=== PATIENT | male | born 1950 | race Caucasian/White ===

== ENCOUNTER 2019-11-09 12:07 | Outpatient (RCR) | payer MEDICARE, SELFPAY ==
[2019-09-07 14:09] LABS: INR 3.7; Prothrombin Time 38.6 Seconds (9.64-11.0)
[2019-11-02 16:41] LABS: Prothrombin Time 10.7 Seconds (9.64-11.0)
[2019-11-09 12:28] LABS: INR 1.9; Prothrombin Time 20.2 Seconds (9.64-11.0)
== END 2019-12-06 23:59 | disposition home or self-care (01) ==
LOC: CHSLAB 12:07
PROVIDERS: PCP Internal Medicine; Visit Provider Internal Medicine
DX: Z79.01 Long term (current) use of anticoagulants (principal)
CPT/HCPCS: 36415; 85610

== ENCOUNTER 2020-01-07 09:37 | Outpatient (CLI) | payer MEDICARE, SELFPAY ==
[2020-01-07 09:50] LABS: Basophils Absolute Auto 0.02 K/mm3 (0.00-0.10); Basophils Percent Auto 0.4 % (0.0-1.0); Eosinophils Absolute Auto 0.09 K/mm3 (0.02-0.50); Hematocrit 35.7 % (37.0-46.0); Immature Granulocyte Absolute 0.01 K/mm3 (0.00-0.00); Immature Granulocyte Percent A 0.2 % (0.0-0.0); Lymphocytes Absolute Auto 1.05 K/mm3 (1.10-4.50); Lymphocytes Percent Auto 23.2 % (18.0-42.0); Mean Corpuscular HGB Conc 30.8 g/dL (32.0-36.0); Mean Corpuscular Hemoglobin 26.1 pg (27.0-31.0); Mean Corpuscular Volume 84.6 fL (78.0-102.0); Mean Platelet Volume 9.7 fl (8.7-11.0); Monocytes Absolute Auto 0.49 K/mm3 (0.10-0.90); Monocytes Percent Auto 10.8 % (2.0-11.0); Neutrophils Absolute Auto 2.9 K/mm3 (1.7-7.2); Neutrophils Percent Auto 63.4 % (50.0-70.0); Platelet Count Result 202 K/mm3 (150-420); Red Blood Count 4.22 M/mm3 (4.70-6.10); Red Cell Distribution Width 14.6 % (11.6-14.4); White Blood Count 4.5 K/mm3 (4.8-10.8)
[2020-01-07 09:56] LABS: Add Urine Microscopic? NO; Appearance Urine Clear (Clear); Bilirubin Urine Negative (Negative); Blood Urine Negative (Negative); Color Urine Yellow (Yellow); Glucose Urine UA Negative (Negative); Ketones Urine Negative (Negative); Leukocyte Esterase Ur Negative (Negative); Nitrate Urine Negative (Negative); Protein Urine Negative (Negative); Urobilinogen Urine 0.2 mg/dL (0.2-1.0)
[2020-01-07 10:01] LABS: INR 2.4; Prothrombin Time 24.2 Seconds (9.64-11.0)
[2020-01-07 10:04] LABS: Hemoglobin A1C 6.7 % (<5.7)
[2020-01-07 10:54] LABS: Alanine Aminotransferase 28 U/L (16-63); Albumin Level 3.7 g/dL (3.4-5.0); Alkaline Phosphatase 60 U/L (46-116); Anion Gap 12.6 mmol/L (7-16); Aspartate Amino Transferase 19 U/L (15-37); Bilirubin,Total 0.7 mg/dL (0.00-1.00); Blood Urea Nitrogen 21 mg/dL (7-18); Calcium 8.9 mg/dL (8.5-10.1); Carbon Dioxide 28 mmol/L (21-32); Chloride 107 mmol/L (98-108); Cholesterol 168 mg/dL (0-200); Estimated Glomerular Filt Rate 60; Glucose 98 mg/dL (70-99); HDL Direct 62 mg/dL (40-60); LDL Cholesterol Calculated 91 mg/dL (<130); Osmolality Calculated 299 mOsm/kg (285-295); Potassium 4.6 mmol/L (3.5-5.1); Sodium 143 mmol/L (136-145); Total Protein 6.4 g/dL (6.4-8.2); Triglycerides 74 mg/dL (0-150)
== END 2020-01-07 09:38 | disposition home or self-care (01) ==
PROVIDERS: PCP Internal Medicine; Visit Provider Internal Medicine
DX: R73.01 Impaired fasting glucose (principal); I10 Essential (primary) hypertension; E78.2 Mixed hyperlipidemia; D68.69 Other thrombophilia; Z79.01 Long term (current) use of anticoagulants
CPT/HCPCS: 36415; 80053; 80061; 81003; 83036; 85025; 85610

== ENCOUNTER 2020-01-24 11:00 | Outpatient (CLI) | payer MEDICARE, SELFPAY ==
[2020-01-24 11:21] LABS: Immature Reticulocyte Fraction 32.7 % (2.0-16.52); Reticulocyte Hemoglobin Conten 27.6 pg (28.0-35.0); Reticulocytes Absolute 0.05 M/mm3 (0.02-0.1)
[2020-01-24 12:57] LABS: Ferritin 13 ng/mL (26-388); Iron 36 ug/dL (65-175); Percent Iron Saturation 7 % (12-57); Vitamin B12 505 pg/mL (193-986)
[2020-01-26 10:41] LABS: Vitamin D 25 Hydroxy 23 ng/mL (30-100)
[2020-01-27 03:44] LABS: Red Blood Cell Folate 869 ng/mL RBC (>280)
== END 2020-01-24 11:01 | disposition home or self-care (01) ==
LOC: CHSLAB 11:02
PROVIDERS: PCP Internal Medicine; Visit Provider Internal Medicine
DX: D64.9 Anemia, unspecified (principal); E55.9 Vitamin D deficiency, unspecified
CPT/HCPCS: 36415; 82306; 82607; 82728; 82747; 83540; 83550; 85046

== ENCOUNTER 2020-01-27 12:30 | Outpatient (CLI) | payer MEDICARE, SELFPAY ==
[2020-01-27 13:41] LABS: Occult Blood Negative (Negative)
[2020-01-27 13:42] LABS: Occult Blood Negative (Negative)
[2020-01-27 13:42] LABS: Occult Blood Negative (Negative)
== END 2020-01-27 12:31 | disposition home or self-care (01) ==
LOC: CHSLAB 12:32
PROVIDERS: PCP Internal Medicine; Visit Provider Internal Medicine
DX: D50.9 Iron deficiency anemia, unspecified (principal)
CPT/HCPCS: 82272

== ENCOUNTER 2020-02-25 11:06 | Outpatient (CLI) | payer MEDICARE, SELFPAY ==
[2020-02-25 11:18] LABS: Basophils Absolute Auto 0.02 K/mm3 (0.00-0.10); Basophils Percent Auto 0.5 % (0.0-1.0); Eosinophils Absolute Auto 0.08 K/mm3 (0.02-0.50); Eosinophils Percent Auto 1.9 % (1.0-6.0); Hematocrit 44.2 % (37.0-46.0); Hemoglobin 13.5 g/dL (12.4-15.3); Immature Granulocyte Absolute 0.01 K/mm3 (0.00-0.00); Immature Granulocyte Percent A 0.2 % (0.0-0.0); Lymphocytes Absolute Auto 1.07 K/mm3 (1.10-4.50); Lymphocytes Percent Auto 25.6 % (18.0-42.0); Mean Corpuscular HGB Conc 30.5 g/dL (32.0-36.0); Mean Corpuscular Hemoglobin 25.7 pg (27.0-31.0); Mean Corpuscular Volume 84.2 fL (78.0-102.0); Mean Platelet Volume 10.4 fl (8.7-11.0); Monocytes Percent Auto 9.6 % (2.0-11.0); Neutrophils Absolute Auto 2.6 K/mm3 (1.7-7.2); Neutrophils Percent Auto 62.2 % (50.0-70.0); Platelet Count Result 188 K/mm3 (150-420); Red Blood Count 5.25 M/mm3 (4.70-6.10); Red Cell Distribution Width 21.2 % (11.6-14.4); White Blood Count 4.2 K/mm3 (4.8-10.8)
[2020-02-25 11:29] LABS: INR 2.2; Prothrombin Time 22.1 Seconds (9.64-11.0)
[2020-02-25 12:36] LABS: Ferritin 39 ng/mL (26-388); Iron 98 ug/dL (65-175); Percent Iron Saturation 24 % (12-57)
== END 2020-02-25 11:07 | disposition home or self-care (01) ==
LOC: CHSLAB 11:08
PROVIDERS: PCP Internal Medicine; Visit Provider Internal Medicine
DX: D50.9 Iron deficiency anemia, unspecified (principal)
CPT/HCPCS: 36415; 82728; 83540; 83550; 85025; 85610

== ENCOUNTER 2020-04-28 09:55 | Outpatient (CLI) | payer MEDICARE, SELFPAY ==
[2020-04-28 10:15] LABS: INR 3.1; Prothrombin Time 30.4 Seconds (9.64-11.0)
[2020-04-30 19:21] LABS: Vitamin D 25 Hydroxy 26 ng/mL (30-100)
== END 2020-04-28 09:56 | disposition home or self-care (01) ==
PROVIDERS: PCP Internal Medicine; Visit Provider Internal Medicine
DX: E55.9 Vitamin D deficiency, unspecified (principal); Z79.01 Long term (current) use of anticoagulants
CPT/HCPCS: 36415; 82306; 85610

== ENCOUNTER 2020-05-26 09:45 | Outpatient (CLI) | payer MEDICARE, SELFPAY ==
[2020-05-26 09:59] LABS: Basophils Absolute Auto 0.01 K/mm3 (0.00-0.10); Basophils Percent Auto 0.2 % (0.0-1.0); Eosinophils Absolute Auto 0.12 K/mm3 (0.02-0.50); Eosinophils Percent Auto 2.5 % (1.0-6.0); Hematocrit 44.7 % (37.0-46.0); Hemoglobin 14.8 g/dL (12.4-15.3); Immature Granulocyte Absolute 0.02 K/mm3 (0.00-0.00); Immature Granulocyte Percent A 0.4 % (0.0-0.0); Lymphocytes Absolute Auto 1.19 K/mm3 (1.10-4.50); Lymphocytes Percent Auto 24.4 % (18.0-42.0); Mean Corpuscular HGB Conc 33.1 g/dL (32.0-36.0); Mean Corpuscular Hemoglobin 30.8 pg (27.0-31.0); Mean Corpuscular Volume 93.1 fL (78.0-102.0); Mean Platelet Volume 9.7 fl (8.7-11.0); Monocytes Absolute Auto 0.42 K/mm3 (0.10-0.90); Monocytes Percent Auto 8.6 % (2.0-11.0); Neutrophils Absolute Auto 3.1 K/mm3 (1.7-7.2); Neutrophils Percent Auto 63.9 % (50.0-70.0); Platelet Count Result 166 K/mm3 (150-420); Red Cell Distribution Width 15.9 % (11.6-14.4); White Blood Count 4.9 K/mm3 (4.8-10.8)
[2020-05-26 10:09] LABS: INR 2.9; Prothrombin Time 28.8 Seconds (9.64-11.0)
== END 2020-05-26 09:46 | disposition home or self-care (01) ==
LOC: CHSLAB 09:47
PROVIDERS: PCP Internal Medicine; Visit Provider Internal Medicine
DX: Z79.01 Long term (current) use of anticoagulants (principal); D72.819 Decreased white blood cell count, unspecified
CPT/HCPCS: 36415; 85025; 85610

== ENCOUNTER 2020-05-29 10:06 | Outpatient (CLI) | payer MEDICARE, SELFPAY ==
[2020-05-29 10:32] LABS: Hemoglobin A1C 6.2 % (<5.7)
[2020-05-29 11:09] LABS: Alanine Aminotransferase 34 U/L (16-63); Albumin Level 3.7 g/dL (3.4-5.0); Alkaline Phosphatase 68 U/L (46-116); Anion Gap 9.2 mmol/L (7-16); Aspartate Amino Transferase 23 U/L (15-37); Bilirubin,Total 0.6 mg/dL (0.00-1.00); Blood Urea Nitrogen 15 mg/dL (7-18); Calcium 8.9 mg/dL (8.5-10.1); Carbon Dioxide 32 mmol/L (21-32); Chloride 106 mmol/L (98-108); Creatine Kinase 156 U/L (39-308); Estimated Glomerular Filt Rate 59; Free T4 Free Thyroxine 0.93 ng/dL (0.76-1.46); Glucose 131 mg/dL (70-99); Osmolality Calculated 298 mOsm/kg (285-295); Potassium 4.2 mmol/L (3.5-5.1); Sodium 143 mmol/L (136-145); Thyroid Stimulating Hormone 1.51 uIU/mL (0.36-3.74); Total Protein 6.5 g/dL (6.4-8.2)
== END 2020-05-29 10:07 | disposition home or self-care (01) ==
LOC: CHSLAB 10:08
PROVIDERS: PCP Internal Medicine; Visit Provider Internal Medicine
DX: R53.83 Other fatigue (principal); R73.01 Impaired fasting glucose
CPT/HCPCS: 36415; 80053; 82550; 83036; 84439; 84443; 84481

== ENCOUNTER 2020-07-29 09:29 | Outpatient (CLI) | payer MEDICARE, SELFPAY ==
[2020-07-29 09:53] LABS: Basophils Absolute Auto 0.02 K/mm3 (0.00-0.10); Basophils Percent Auto 0.4 % (0.0-1.0); Eosinophils Absolute Auto 0.13 K/mm3 (0.02-0.50); Eosinophils Percent Auto 2.9 % (1.0-6.0); Hematocrit 49.1 % (37.0-46.0); Hemoglobin 15.8 g/dL (12.4-15.3); Immature Granulocyte Absolute 0.01 K/mm3 (0.00-0.00); Immature Granulocyte Percent A 0.2 % (0.0-0.0); Lymphocytes Absolute Auto 0.99 K/mm3 (1.10-4.50); Mean Corpuscular HGB Conc 32.2 g/dL (32.0-36.0); Mean Corpuscular Hemoglobin 31.7 pg (27.0-31.0); Mean Corpuscular Volume 98.4 fL (78.0-102.0); Mean Platelet Volume 10.7 fl (8.7-11.0); Monocytes Absolute Auto 0.35 K/mm3 (0.10-0.90); Monocytes Percent Auto 7.8 % (2.0-11.0); Neutrophils Percent Auto 66.7 % (50.0-70.0); Platelet Count Result 191 K/mm3 (150-420); Red Blood Count 4.99 M/mm3 (4.70-6.10); Red Cell Distribution Width 13.7 % (11.6-14.4); White Blood Count 4.5 K/mm3 (4.8-10.8)
[2020-07-29 09:55] LABS: INR 2.8; Prothrombin Time 28.1 Seconds (9.64-11.0)
[2020-07-29 09:56] LABS: Reticulocytes Absolute 1.55 M/mm3 (0.02-0.1)
[2020-07-29 09:57] LABS: Immature Reticulocyte Fraction 9.4 % (2.0-16.52); Reticulocyte Hemoglobin Conten 37.8 pg (28.0-35.0); Reticulocyte Percent 0.08 % (0.50-1.50)
[2020-07-29 11:01] LABS: Alanine Aminotransferase 38 U/L (16-63); Albumin Level 4.3 g/dL (3.4-5.0); Alkaline Phosphatase 76 U/L (46-116); Anion Gap 6 mmol/L (8-16); Aspartate Amino Transferase 21 U/L (15-37); Bilirubin,Total 0.9 mg/dL (0.00-1.00); Blood Urea Nitrogen 19 mg/dL (7-18); Calcium 9.2 mg/dL (8.5-10.1); Carbon Dioxide 29 mmol/L (21-32); Chloride 106 mmol/L (98-108); Estimated Glomerular Filt Rate > 60; Ferritin 72 ng/mL (26-388); Glucose 109 mg/dL (70-99); Iron 110 ug/dL (65-175); Osmolality Calculated 295 mOsm/kg (285-295); Percent Iron Saturation 29 % (12-57); Potassium 4.4 mmol/L (3.5-5.1); Sodium 141 mmol/L (136-145); Total Protein 7.1 g/dL (6.4-8.2)
[2020-08-02 12:11] LABS: Vitamin D 25 Hydroxy 27 ng/mL (30-100)
== END 2020-07-29 09:30 | disposition home or self-care (01) ==
LOC: CHSLAB 09:31
PROVIDERS: PCP Internal Medicine; Visit Provider Internal Medicine
DX: R19.4 Change in bowel habit (principal); D68.69 Other thrombophilia; E61.1 Iron deficiency; E55.9 Vitamin D deficiency, unspecified; Z12.5 Encounter for screening for malignant neoplasm of prostate; Z79.01 Long term (current) use of anticoagulants
CPT/HCPCS: 36415; 80053; 82306; 82728; 83540; 83550; 84153; 85025; 85046; 85610; G0103

== ENCOUNTER 2020-08-07 08:23 | Outpatient (CLI) | payer MEDICARE, SELFPAY ==
--- NOTE | ~2020-08-07 | CT_ITS ---
EXAMINATION: CT abdomen pelvis w con DATE: 08/07/2020 08:49 INDICATION: Change in bowel habits, melena. History of bowel resection 10 months ago for polyps. TECHNIQUE: Computed tomography (CT) of the abdomen and pelvis was performed with 100 cc Omnipaque 350 intravenous contrast. Automated exposure control and iterative reconstruction technique were employe d. Exam dose: 872.57 mGy-cm total exam DLP. COMPARISON: 12/25/2018 CT abdomen pelvis FINDINGS: The lung bases are clear of infiltrate or consolidation. Normal heart size. No pericardial or pleural effusion. There is an approximately 12 mm gallstone. No gallbladder wall thickening or pericholecystic fluid or inflammation. No bile duct or pancreatic duct dilatation. No hepatic, splenic, pancreatic or adrenal space-occupying mass lesion is detected. Approximately 2.1 cm and 3 mm right renal cysts and 3.8 cm left renal cysts are noted. There are 3 lower pole left renal calculi measuring between approximately 3 milliners and 10 mm maxim al dimension. No right renal or right or left ureteral calculus or hydronephrosis of either kidney. There is prominent prostate enlargement as well as some prostate calcifications. There is diffuse thi ckening of the urinary bladder wall, likely due to the prostate enlargement/bladder outlet obstructio n. There is atherosclerotic calcification of the abdominal aorta and iliac arteries but no aneurysm. No intraperitoneal or retroperitoneal or pelvic mass lesion or adenopathy or ascites. There are numerous diverticula of the sigmoid colon; no CT evidence of diverticulitis. There is partial resection of the right colon. No bowel obstruction, bowel wall thickening, pneumatos is or intraperitoneal free air. There are bilateral fat-containing inguinal hernias, larger on the left. Prominent degenerative disc disease throughout the lumbar spine, moderate degenerative disease at L5- S1. No suspicious osteolytic or osteoblastic lesions are noted. Left hip prosthesis with extensive associated streak artifact.. IMPRESSION: Cholelithiasis Bilateral renal cysts Lower pole left nonobstructive nephrolithiasis Prominent prostate enlargement, prostate calcifications; diffuse bladder wall thickening, likely seco ndary to the prostate enlargement Diverticulosis of the sigmoid colon Reviewed, dictated and finalized at [facility]. Reviewed, dictated and finalized at location [facility]. IMPRESSION: Cholelithiasis Bilateral renal cysts Lower pole left nonobstructive nephrolithiasis Prominent prostate enlargement, prostate calcifications; diffuse bladder wall t hickening, likely secondary to the prostate enlargement Diverticulosis of the sigmoid colon
== END 2020-08-07 08:24 | disposition home or self-care (01) ==
LOC: CHSIMG 08:24
PROVIDERS: PCP Internal Medicine; Visit Provider Internal Medicine
DX: R19.4 Change in bowel habit (principal); K92.1 Melena
CPT/HCPCS: 74177; Q9965

== ENCOUNTER 2020-09-11 11:03 | Outpatient (CLI) | payer MEDICARE, SELFPAY ==
--- NOTE | ~2020-09-11 | XR_ITS ---
EXAMINATION: XR chest 2V EXAM DATE: 09/11/2020 11:46 INDICATION: Incisional hernia. Preoperative. TECHNIQUE: Frontal and lateral projections of the chest obtained and reviewed. Comparison is made to prior examination from 01/30/2013. FINDINGS: Right chondral cartilage calcification. There is an oblong left midlung zone granuloma unc hanged. The lungs are otherwise clear. There are no pleural effusions. The cardiomediastinal silhou ette is within normal limits. There is no pneumothorax suspected. The bones and soft tissues are un remarkable. IMPRESSION: Granuloma. Reviewed, dictated and finalized at location B. ACQUISITION SPECIALIST IMPRESSION: Granuloma.
[2020-09-11 11:15] LABS: Basophils Absolute Auto 0.01 K/mm3 (0.00-0.10); Basophils Percent Auto 0.2 % (0.0-1.0); Eosinophils Absolute Auto 0.12 K/mm3 (0.02-0.50); Eosinophils Percent Auto 2.6 % (1.0-6.0); Hematocrit 43.8 % (37.0-46.0); Hemoglobin 14.2 g/dL (12.4-15.3); Immature Granulocyte Absolute 0.02 K/mm3 (0.00-0.00); Immature Granulocyte Percent A 0.4 % (0.0-0.0); Lymphocytes Absolute Auto 1.06 K/mm3 (1.10-4.50); Lymphocytes Percent Auto 22.6 % (18.0-42.0); Mean Corpuscular HGB Conc 32.4 g/dL (32.0-36.0); Mean Corpuscular Hemoglobin 32.1 pg (27.0-31.0); Mean Corpuscular Volume 98.9 fL (78.0-102.0); Mean Platelet Volume 9.9 fl (8.7-11.0); Monocytes Absolute Auto 0.44 K/mm3 (0.10-0.90); Monocytes Percent Auto 9.4 % (2.0-11.0); Neutrophils Percent Auto 64.8 % (50.0-70.0); Platelet Count Result 169 K/mm3 (150-420); Red Blood Count 4.43 M/mm3 (4.70-6.10); Red Cell Distribution Width 13.4 % (11.6-14.4); White Blood Count 4.7 K/mm3 (4.8-10.8)
[2020-09-11 11:27] LABS: INR 2.9; Prothrombin Time 29.1 Seconds (9.64-11.0)
--- NOTE | 2020-09-11 11:30 | ECG_ITS ---
Measurements Intervals [place] Rate: 84 P: 32 MI: 167 QRS: 11 QRSD: 104 T: -8 QT: 364 QTc: 431 Interpretive Statements SINUS RHYTHM ATRIAL PREMATURE COMPLEX INCOMPLETE RIGHT BUNDLE BRANCH BLOCK BORDERLINE ST-T WAVE ABNORMALITY- INFERIOR LEADS BASELINE WANDER- V1 BORDERLINE ECG Electronically Signed On 09-11-2020 12:11:02 BUYER by Jose Martin Pham D.O.
[2020-09-11 11:34] LABS: Partial Thromboplastin Time 34.7 SEC (22.3-31.6)
[2020-09-11 12:32] LABS: Anion Gap 8 mmol/L (8-16); Blood Urea Nitrogen 22 mg/dL (7-18); Calcium 8.9 mg/dL (8.5-10.1); Carbon Dioxide 29 mmol/L (21-32); Chloride 106 mmol/L (98-108); Estimated Glomerular Filt Rate > 60; Glucose 110 mg/dL (70-99); Osmolality Calculated 300 mOsm/kg (285-295); Potassium 4.4 mmol/L (3.5-5.1); Sodium 143 mmol/L (136-145)
== END 2020-09-11 11:04 | disposition home or self-care (01) ==
PROVIDERS: PCP Internal Medicine; Visit Provider Anesthesiology
DX: K43.2 Incisional hernia without obstruction or gangrene (principal); E78.00 Pure hypercholesterolemia, unspecified; Z79.01 Long term (current) use of anticoagulants; I45.10 Unspecified right bundle-branch block
CPT/HCPCS: 36415; 71046; 80048; 85025; 85610; 85730; 93005

== ENCOUNTER 2020-09-13 01:34 | Outpatient (CLI) | payer MEDICARE, SELFPAY ==
[2020-09-13 18:04] LABS: SARS-CoV-2 RNA PCR Negative
== END 2020-09-13 01:35 | disposition home or self-care (01) ==
LOC: ANHCOVIDDT 01:35
PROVIDERS: PCP Internal Medicine; Visit Provider Surgery
DX: Z01.818 Encounter for other preprocedural examination (principal); Z20.828 Contact with and (suspected) exposure to other viral communicable diseases
CPT/HCPCS: 87635; C9803; U0003

== ENCOUNTER 2020-12-05 15:51 | Outpatient (RCR) | payer MEDICARE, SELFPAY ==
[2020-12-05 16:17] LABS: INR 2.5
== END 2021-03-05 23:59 | disposition home or self-care (01) ==
LOC: CHSLAB 15:51
PROVIDERS: PCP Internal Medicine; Visit Provider Internal Medicine
DX: Z79.01 Long term (current) use of anticoagulants (principal)
CPT/HCPCS: 36415; 85610

== ENCOUNTER → 2020-12-13 00:34 | Outpatient (CLI) | payer MEDICARE, SELFPAY ==
[2020-12-13 20:38] LABS: SARS-CoV-2 RNA PCR Negative
== END ==
PROVIDERS: Family Provider Internal Medicine; PCP Internal Medicine; Visit Provider Surgery
DX: Z01.812 Encounter for preprocedural laboratory examination (principal); Z20.822 Contact with and (suspected) exposure to COVID-19
CPT/HCPCS: C9803; U0003; U0005

== ENCOUNTER 2020-12-18 15:34 | Observation (INO) | payer MEDICARE, SELFPAY ==
[2020-09-11 09:49] VITALS: BMI 28.8
--- NOTE | 2020-09-16 13:21 | P.PNAN_ITS ---
Anes - Initial Pre Proc Eval Procedure: Operation Date: 09/17/20 08:30 Proposed Procedures p Laparoscopic Repair Of Incisional Hernia - Mark Angeles MD Date/Time: 09/16/20 13:21 Surgeon: Mark Angeles MD Pre Op Diagnosis: Incisional Hernia Patient Data Age: 69 Gender: M Height: 1.78 m Weight: 91 kg Allergies Allergy/AdvReac Type Severity Reaction Status Date / Time No Known Allergies Allergy Unknown Verified 09/11/20 09:44 Home Medications Medication Instructions Recorded Confirmed Type cholecalciferol (vitamin D3) 75 75 mcg PO QAM 08/11/20 09/11/20 History mcg (3,000 unit) tablet folic acid 1 mg tablet 1,000 mg PO DAILY 08/11/20 09/11/20 History lovastatin 40 mg tablet 40 mg PO QAM 08/11/20 09/11/20 History tamsulosin 0.4 mg capsule 0.4 mg PO QAM 08/11/20 09/11/20 History warfarin 1 mg tablet 1 mg PO DAILY 08/11/20 09/11/20 History warfarin 4 mg tablet 4 mg PO QAM 08/11/20 09/11/20 History glucosamine-chondroitin 1 tablet PO QAM 09/11/20 09/11/20 History PMFSH Past Medical History Medical History (Updated 09/16/20 @ 13:22 by Aj Veliz MD) Arthritis BPH (benign prostatic hyperplasia) Factor V Leiden History of blood clots History of high blood pressure History of high cholesterol AYAKA on CPAP Pulmonary embolism Surgical History Surgical History (Updated 08/18/20 @ 10:33 by Pema Urbina [facility]) H/O umbilical hernia repair approx 2014 Dr. Angeles History of cystoscopy 2014, OA Dr. Langley History of left hip replacement 2014 History of prostate biopsy 2009, OA Dr. White Status post partial colectomy 10/2019: partial right colectomy for dyplastic polyp, [place] Family History Family History Father , age 80 Family history of cardiovascular disease Acute myocardial infarction Sibling , age 63 Family history of cardiovascular disease Acute myocardial infarction Mother , age 78 Family history of lung cancer Diabetes mellitus Social History Social History Smoking status: Never smoker Additional smoking assessment comments: PT STATES NEVER SMOKING CIGARETTS, CIGARS, PIPE, E-CIGARETTES OR VAPING Alcohol intake: current Drinks per week: 21 Substance use: current Substance use type: marijuana Other substance usage details: DAILY Last use: 09/10/20 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 Questions were solicited and answers provided to the satisfaction of the patient/family/POA.
[2020-12-09 15:29] VITALS: BMI 28.8
--- NOTE | 2020-12-16 10:50 | PM.SD2 ---
Same Day Admit/Disch: HPI History of Present Illness Chief complaint: Incisional Hernia Narrative: Mark Chatman is a 70 year old male Who noticed a bulge in the left side of his abdomen following a laparoscopic partial right colectomy done at [facility] in October of 2019. He was seen in the office and found to have a left flank hernia. CT scan of the abdomen and pelvis in August of 2020 has been reviewed. It shows disruption of the internal oblique and transversus muscles but an intact external oblique. His exam shows a fairly wide mouth left flank incisional hernia associated with a 6 cm scar in the area. The patient has Factor 5 Leiden mutation, heterozygous and history of DVT. He is on chronic warfarin therapy which has been stopped for surgery. He is taken to surgery now for laparoscopic repair of this incisional hernia with mesh. He has had a previous umbilical hernia repair by Dr. mclean with mesh in November of 2016. [facility] Past Medical History Medical History (Updated 12/19/20 @ 10:13 by Mark Mclean MD) Arthritis BPH (benign prostatic hyperplasia) Factor V Leiden History of blood clots History of high blood pressure History of high cholesterol AYAKA on CPAP Pulmonary embolism Surgical History Surgical History (Updated 08/18/20 @ 10:33 by Pema Urbina CMA) H/O umbilical hernia repair approx 2014 Dr. Mclean History of cystoscopy 2014, OA Dr. Langley History of left hip replacement 2014 History of prostate biopsy 2009, OA Dr. White Status post partial colectomy 10/2019: partial right colectomy for dyplastic polyp, [place] Family History Family History Father , age 80 Family history of cardiovascular disease Acute myocardial infarction Sibling , age 63 Family history of cardiovascular disease Acute myocardial infarction Mother , age 78 Family history of lung cancer Diabetes mellitus Social History Social History Smoking status: Never smoker Alcohol intake: current Drinks per week: 21 Substance use: current Substance use type: marijuana Other substance usage details: DAILY Last use: 12/16/20 Living arrangements: with family 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 Spiritual care concerns: No Same Day Admit/Disch: Med Pre-admit Medications Home Medications Medication Instructions Recorded Confirmed Type cholecalciferol (vitamin D3) 75 75 mcg PO QAM 08/11/20 12/17/20 History mcg (3,000 unit) tablet folic acid 1 mg tablet 1 mg PO DAILY 08/11/20 12/18/20 History lovastatin 40 mg tablet 40 mg PO QAM 08/11/20 12/17/20 History tamsulosin 0.4 mg capsule 0.4 mg PO QAM 08/11/20 12/17/20 History warfarin 4 mg tablet 4 mg PO QAM 08/11/20 12/17/20 History glucosamine-chondroitin 1 tablet PO QAM 09/11/20 12/17/20 History hydrocodone-acetaminophen 1 - 2 tablet PO Q6H PRN #15 tablet 12/19/20 Rx Exam Const: General: comfortable, no acute distress, alert and awake HENMT: Head: normocephalic and atraumatic Mouth: Yes Normal oral and palatal mucosa present Eyes: Conjunctivae: conjunctivae normal Pupils: Equal, round and reactive pupils present EOM: EOMs intact bilaterally Neck: Neck: normal visual inspection, no lymphadenopathy and nontender Resp: Effort & Inspection: normal respiratory effort Auscultation: clear to auscultation bilaterally Cardio: Rate: regular rate Rhythm: regular rhythm Heart sounds: no gallops, no murmurs and no rubs GI: Inspection: non-distended, scar ( 6 cm left flank scar) and visible herniation ( only when standing) GI Palp: Yes Soft to palpation, No Tenderness to palpation present (GI), No Hepatomegaly present, No Splenomegaly present and Yes Hernia present ( reducible hernia, only palpable with standing) Auscultation: normoactive bowel sounds Skin:
--- NOTE | 2020-12-16 12:24 | WPDANESEPPF ---
Anes - Initial Pre Proc Eval Procedure: Operation Date: 12/17/20 13:00 Proposed Procedures p Laparoscopic Repair Of Incisional Hernia - Mark Angeles MD Date/Time: 12/16/20 12:24 Surgeon: Mark Angeles MD Pre Op Diagnosis: Incisional Hernia Patient Data Age: 70 Gender: M Height: 1.78 m Weight: 91 kg Allergies Allergy/AdvReac Type Severity Reaction Status Date / Time No Known Allergies Allergy Unknown Verified 12/17/20 11:06 Home Medications Medication Instructions Recorded Confirmed Type cholecalciferol (vitamin D3) 75 75 mcg PO QAM 08/11/20 12/17/20 History mcg (3,000 unit) tablet folic acid 1 mg tablet 1,000 mg PO DAILY 08/11/20 12/17/20 History lovastatin 40 mg tablet 40 mg PO QAM 08/11/20 12/17/20 History tamsulosin 0.4 mg capsule 0.4 mg PO QAM 08/11/20 12/17/20 History warfarin 4 mg tablet 4 mg PO QAM 08/11/20 12/17/20 History glucosamine-chondroitin 1 tablet PO QAM 09/11/20 12/17/20 History Patient hx anesthesia problems: none Family hx anesthesia problems: none PMFSH Past Medical History Medical History (Updated 09/16/20 @ 13:22 by Aj Veliz MD) Arthritis BPH (benign prostatic hyperplasia) Factor V Leiden History of blood clots History of high blood pressure History of high cholesterol AYAKA on CPAP Pulmonary embolism Surgical History Surgical History (Updated 08/18/20 @ 10:33 by Pema Urbina CMA) H/O umbilical hernia repair approx 2014 Dr. Angeles History of cystoscopy 2014, OA Dr. Langley History of left hip replacement 2014 History of prostate biopsy 2009, OA Dr. White Status post partial colectomy 10/2019: partial right colectomy for dyplastic polyp, [place] Family History Family History Father , age 80 Family history of cardiovascular disease Acute myocardial infarction Sibling , age 63 Family history of cardiovascular disease Acute myocardial infarction Mother , age 78 Family history of lung cancer Diabetes mellitus Social History Social History Smoking status: Never smoker Alcohol intake: current Drinks per week: 21 Substance use: current Substance use type: marijuana Other substance usage details: DAILY Last use: [id number] Living arrangements: with family 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 Questions were solicited and answers provided to the satisfaction of the patient/family/POA.
[2020-12-17] VITALS (12 sets, daily range): BP systolic 125–169; BP diastolic 80–92; PULSE 79–106; RESP 12–20; TEMP 36.2–37; O2SAT 93–100
--- NOTE | 2020-12-17 07:02 | WPDHPUPDATE1 ---
History and Physical Update Update Date/Time: 12/17/20 07:02 History and Physical has been reviewed, including an updated exam of the patient. There are NO changes in the patient's condition. Risks, benefits, and alternatives have been discussed and questions answered. Patient agrees to proceed with procedure.
[2020-12-17] MEDS: LACTATED RINGERS 1,000 ML 30 ML IV CONT ×2 (11:40→15:02)
[2020-12-17] MEDS: ACETAMINOPHEN 500 MG TABLET 1000 MG PO (11:50)
[2020-12-17] MEDS: KETOROLAC 15 MG/ML VIAL (*BKC) IV PUSH (11:52)
[2020-12-17 12:02] LABS: INR 1.3; Prothrombin Time 16.7 Seconds (11.1-14.7)
[2020-12-17 12:03] LABS: Partial Thromboplastin Time 25.9 SECONDS (22.3-36.8)
[2020-12-17] MEDS: ceFAZolin 2 GM/D5W 50 ML 2 GM/50 ML BAG IVPB (13:20)
[2020-12-17] MEDS: BUPIVACAINE/EPINEPHRINE 0.5% 30 ML VIAL 20 ML INFILTRATE (13:43)
--- NOTE | 2020-12-17 15:13 | P.OP_ITS ---
Procedure Note - Detailed Date of procedure: 12/17/20 Pre-op diagnosis: Incisional Hernia Incisional hernia left flank Post-op diagnosis: same Procedure performed: Laparoscopic repair incisional hernia with 15 x 20 cm Symbotex mesh Description of procedure: Patient was checked in the preoperative holding area. He was then taken back to the operating room and induced into general anesthesia. The entire abdomen was prepped and draped. The initial trocar was placed in the left subcostal position fairly near the midline. This was a 5 mm applied Medical optical trocar. It went in easily. Then, under direct visu alization, we placed two 5 mm ports on the right side of the abdomen and a 10 11 port in the right lower quadrant. The abdomen was insufflated. The hernia was easily seen. There were omental adhesions stuck in the hernia sac. These were taken down sharply. No cautery was used. The hernia defect was then measured by placing a flexible ruler in the abdominal cavity. It measured 4.5 cm in transverse dimension and 2.5 cm in cephalad caudad direction. The ruler was removed. A 15 x 20 cm Symbotex mesh was chosen. I used a needle and marked location of the hernia on the anterior abdominal wall. I then placed the mesh so that it was symmetrically located over the hernia defect. I marked the outlines of the mesh on the skin. I then placed 2 0 Tyler-Ray suture around the periphery of the mesh on 3 sides. The mesh was rolled and introduced into the abdominal cavity through the 10 11 port. it was then unrolled and positioned such that the medial and lateral Tyler-Ray sutures were in the appropriate position. The remaining Tyler-Rya suture on the long side of the abdomen was away from the rib cage. I then used the [employer] suture pass device and brought the Tyler-Ray suture out of the abdominal cavity at the outer edges of the area where the mesh had been marked. When all the sutures had been retrieved, I pulled the mesh up to the abdominal wall. It looked to be very satisfactory in location. The sutures were then tied down. The secure strap device was then used to place absorbable tacks. All edges of the hernia defect were tacked securely to the abdominal wall using the double crown technique. The mesh lay very nicely and covered the hernia defect with over 5 cm of overlap in all dimensions. I then placed another Tyler-Ray transfascial suture on the upper side of the mesh but below the costal margin. This was tied down as well. I rechecked the position of the mesh repair. All looked quite good. The transfascial sutures were then cut. We stopped insufflation and removed the trocar sleeves. Transfascial suture sites as well as all trocar sites were closed with subcuticular interrupted 4 0 Monocryl skin suture. All wounds were dressed with Exofin surgical adhesive. The patient was awakened and taken to recovery in good condition. Sponge and needle counts were correct x2. Implants: 15 x 20 cm Symbotex mesh Anesthesia: GETA and local (0.5% Marcaine with epinephrine) Surgeon: Mark Angeles MD Charting Clerk: Cheryl JOHNSON Estimated blood loss (mL): 5 Drains: No Packing: No Pathology: none sent Complications: None Condition: stable Disposition: PACU Findings: 4.5 x 2.5 cm hernia defect in the left mid abdomen/left flank.
[2020-12-17] MEDS: fentaNYL CITRATE INJ (*CRX) 100 MCG/2 ML VIAL 25 MCG IV PUSH ×6 (15:25→15:47)
--- NOTE | 2020-12-17 16:10 | ADMGEN ---
This patient, Mark Chatman, was admitted to Medical Room 251-01. Patient/family oriented to hospital policies and general routines including ID bracelet, bed and alarms, visiting hours, pain management, procedures, bathroom and other care routines, personal items, smoking policy, room service/diet, and visiting hours. Information on how to activate the Rapid Response Team has been discussed. Patient/Family are encouraged to report perceived risks to care and to ask questions if they do not understand what they are told or what they should do.
[2020-12-17] MEDS: LACTATED RINGERS 1,000 ML 100 ML IV CONT (17:02)
[2020-12-17] MEDS: HYDROcodone/acetaminophen (*CRX) 5-325 MG TABLET 1 TAB PO (18:57)
[2020-12-17] MEDS: ENOXAPARIN 30 MG/0.3 ML SYRINGE SUB-Q (20:40)
[2020-12-17] MEDS: SENNA/DOCUSATE SODIUM TABLET 2 TAB PO (20:40)
[2020-12-18] VITALS (7 sets, daily range): BP systolic 137–158; BP diastolic 75–97; PULSE 76–98; RESP 17–22; TEMP 36.5–36.9; O2SAT 94–97
[2020-12-18 05:55] LABS: Hematocrit 40.6 % (42.0-52.0); Hemoglobin 13.4 g/dL (14.0-18.0); Mean Platelet Volume 10.7 fl (7.4-10.4); Platelet Count Result 181 k/mm3 (150-375); Red Blood Count 4.32 M/mm3 (4.6-6.20); Red Cell Distribution Width 13.1 % (11.5-14.5); White Blood Count 7.2 K/mm3 (4.5-10.0)
[2020-12-18 06:10] LABS: Anion Gap 2 mmol/L (8-16); Blood Urea Nitrogen 17 mg/dL (9-20); Calcium 8.3 mg/dL (8.4-10.2); Carbon Dioxide 29 mmol/L (22-30); Chloride 106 mmol/L (98-107); Estimated CRCL calculation 62 ml/min; Estimated Glomerular Filt Rate > 60; Glucose 100 mg/dL (75-110); Potassium 4.6 mmol/L (3.4-5.0); Sodium 137 mmol/L (137-145)
[2020-12-18] MEDS: polyethylene glycoL 3350 17 GM POWD.PACK PO (08:54)
[2020-12-18] MEDS: LOVASTATIN 20 MG TABLET 40 MG PO (08:56)
[2020-12-18] MEDS: CHOLECALCIFEROL 1,000 UNITS TABLET 3000 UNITS PO (08:56)
[2020-12-18] MEDS: TAMSULOSIN HCL 0.4 MG CAPSULE PO (08:56)
[2020-12-18] MEDS: HYDROcodone/acetaminophen (*CRX) 5-325 MG TABLET 1 TAB PO (08:57)
[2020-12-18] MEDS: ENOXAPARIN 30 MG/0.3 ML SYRINGE SUB-Q ×2 (08:59→20:16)
--- NOTE | 2020-12-18 09:23 | WPDANESPN ---
Anes - Prog Note Post-Op Date/Time: 12/18/20 09:23 Cardiovascular status: normal Respiratory status: normal Airway patency: baseline Mental status: baseline Post-Op hydration status: normal Vital Signs: Last Vital Signs Temp 36.9 C 12/18/20 04:00 Pulse 76 12/18/20 04:00 Resp 20 12/18/20 04:00 BP 137/86 12/18/20 04:00 Pulse Ox 94 12/18/20 04:00 Pain Score (VAS): 3 I/O: Intake & Output 12/17/20 12/18/20 12/18/20 23:59 07:59 15:59 Intake Total 270 300 510 Output Total 200 700 Balance 70 -400 510 Laboratory Tests 12/18/20 05:08 12/18/20 05:08 12/17/20 12/18/20 12/18/20 11:32 05:08 05:08 WBC 7.2 RBC 4.32 L Hgb 13.4 L Hct 40.6 L MCV 94.0 MCH 31.0 MCHC 33.0 RDW 13.1 Plt Count 181 MPV 10.7 H PT 16.7 H INR 1.3 APTT 25.9 Sodium 137 Potassium 4.6 Chloride 106 Carbon Dioxide 29 Anion Gap 2 L BUN 17 Creatinine 1.00 Estim Creat Clear Calc 62 Estimated GFR > 60 Glucose 100 Calcium 8.3 L Post-procedural complaints: none Patient Feedback: Patient satisfied with anesthetic care.
--- NOTE | 2020-12-18 12:50 | PM.PNGS ---
Progress Note: A&P Assessment and Plan (1) Incisional hernia with obstruction, without gangrene: Code(s): K43.0 - Incisional hernia with obstruction, without gangrene Status: Acute Assessment and Plan: POD#1 and doing well. Pain well-controlled. Tolerating a low fiber diet. Work on increasing activity and ambulating in the halls. Up to chair for meals. Possibly home tomorrow if pain continues to be well-controlled and he remains stable. (2) Chronic anticoagulation: Code(s): Z79.01 - half-way (current) use of anticoagulants Status: Acute Assessment and Plan: Warfarin restarted. Coags will be checked tomorrow. (3) Factor V Leiden: Code(s): D68.51 - Activated protein C resistance Status: Acute (4) History of venous thromboembolism: Code(s): Z86.718 - Personal history of other venous thrombosis and embolism Status: Acute Additional Plan Discussed plan of care with Dr. Angeles. Subjective Subjective Date/Time Seen: 12/18/20 11:50 Post Op day: 1 (lap. repair of incisional hernia with mesh) Patient reports: tolerating a regular diet, voiding w/o difficulty, flatus and no bowel movement Interval history: Patient doing well today. Reports feeling sore at incision and left abdomen, but tolerable and controlled with pain medication. Tolerating a low fiber diet. No other complaints at this time. Review of Systems Review of Systems: All systems reviewed & are unremarkable except as noted in HPI and below Exam Const: General: comfortable, no acute distress, alert and awake Orientation/consciousness: patient oriented x3 Resp: Effort & Inspection: normal respiratory effort Auscultation: clear to auscultation bilaterally Cardio: Rate: regular rate Rhythm: regular rhythm GI: Inspection: non-distended and incision (Abdominal incisions clean and dry, glue intact.) GI Palp: Yes Soft to palpation and Yes Tenderness to palpation present (GI) (incisional and left side of abdomen) Auscultation: normal bowel sounds Rectal Exam: deferred Skin: General skin exam: normal color Rashes: no rashes Neuro: General: moves all extremities and no focal motor deficits Cranial nerves: Yes CN's II-XII intact bilaterally Speech: normal speech Extrem: General: normal to inspection, no clubbing, cyanosis or edema and no calf tenderness Psych: Mental Status: mental status grossly normal Attitude: cooperative Thought process: Normal thought process present Thought content: Yes Normal thought content present Insight: Good insight present (Psych) Judgement: Good judgement present (Psych) Objective Data Vital Signs Vital Signs: Vital Signs - 24 hr 12/17/20 15:02 12/17/20 15:15 12/17/20 15:30 Temperature 97.3 F L Pulse Rate 90 79 81 Respiratory Rate 14 12 12 Blood Pressure 146/80 H 163/87 H 154/88 H Pulse Oximetry 100 100 96 12/17/20 15:45 12/17/20 15:53 12/17/20 16:10 Temperature 97.3 F L Pulse Rate 83 94 88 Respiratory Rate 12 15 16 Blood Pressure 152/87 H 159/88 H 169/91 H Pulse Oximetry 100 97 98 12/17/20 16:25 12/17/20 16:55 12/17/20 17:55 Temperature 97.3 F L 97.2 F L 97.4 F L Pulse Rate 92 86 82 Respiratory Rate 16 16 16 Blood Pressure 153/89 H 161/92 H 164/89 H Pulse Oximetry 96 93 96 12/17/20 20:00 12/17/20 23:04 12/18/20 04:00 Temperature 98.6 F 98.5 F Pulse Rate 106 H 76 Respiratory Rate 20 20 20 Blood Pressure 125/89 137/86 Pulse Oximetry 93 94 12/18/20 09:56 12/18/20 10:06 Temperature 97.9 F Pulse Rate 87 Respiratory Rate 18 Blood Pressure 155/85 H Pulse Oximetry 95 95 Intake/Output Intake/Output: Intake & Output 12/15/20 12/16/20 12/17/20 12/18/20 23:59 23:59 23:59 23:59 Intake Total 670 810 Output Total 200 700 Balance 470 110 Meds/Results Medications: Active Medications Generic Name Dose Route Start Last Admin Trade Name Freq PRN Reason Stop Dose Admin Acetaminophen 500 mg 12/17/20 15:54
--- NOTE | 2020-12-18 13:38 | PC.NURSE ---
On 12/18/20, the student, [Margaux Agustin ], provided care and completed [facility] this [facility]. I have reviewed the student's documentation and agree with the findings.
[2020-12-18] MEDS: ACETAMINOPHEN 500 MG TABLET PO (18:45)
[2020-12-18] MEDS: FOLIC ACID 1 MG TABLET PO (18:45)
[2020-12-18] MEDS: SENNA/DOCUSATE SODIUM TABLET 2 TAB PO (20:15)
[2020-12-19 04:00] VITALS: BP 153/93; PULSE 86; RESP 20; TEMP 37; O2SAT 95
[2020-12-19] MEDS: ACETAMINOPHEN 500 MG TABLET PO ×2 (04:12→09:49)
[2020-12-19 05:56] LABS: INR 1.1; Prothrombin Time 14.3 Seconds (11.1-14.7)
[2020-12-19 08:04] VITALS: BP 161/90; PULSE 93; RESP 18; TEMP 36.1; O2SAT 99
[2020-12-19] MEDS: polyethylene glycoL 3350 17 GM POWD.PACK PO (08:17)
[2020-12-19] MEDS: LOVASTATIN 20 MG TABLET 40 MG PO (08:17)
[2020-12-19] MEDS: CHOLECALCIFEROL 1,000 UNITS TABLET 3000 UNITS PO (08:19)
[2020-12-19] MEDS: TAMSULOSIN HCL 0.4 MG CAPSULE PO (08:19)
[2020-12-19] MEDS: FOLIC ACID 1 MG TABLET PO (08:19)
[2020-12-19] MEDS: ENOXAPARIN 30 MG/0.3 ML SYRINGE SUB-Q (08:19)
--- NOTE | 2020-12-19 10:21 | PM.DS ---
DS: Admitting Diagnosis Admitting Diagnosis Admitting Diagnosis: Left flank incisional hernia factor 5 Leiden deficiency, heterozygous chronic anticoagulation BPH with obstruction obstructive sleep apnea on home CPAP DS: Discharge Diagnosis Discharge Diagnosis (1) Incisional hernia with obstruction, without gangrene: Code(s): K43.0 - Incisional hernia with obstruction, without gangrene Status: Acute Assessment and Plan: Doing well after laparoscopic repair with mesh. Patient able to be discharged on postop day 2. Instructions given. He will follow up in 2 weeks. (2) Factor V Leiden: Code(s): D68.51 - Activated protein C resistance Status: Chronic Assessment and Plan: Warfarin has been restarted yesterday. He will continue his normal home dose after discharge. He was also given prophylactic dose of Lovenox during his hospital stay. 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 Coumadin restarted (4) AYAKA on CPAP: Code(s): G47.33 - Obstructive sleep apnea (adult) (pediatric); Z99.89 - Dependence on other enabling machines and devices Status: Chronic Assessment and Plan: continue CPAP as before (5) BPH (benign prostatic hyperplasia): Code(s): N40.0 - Benign prostatic hyperplasia without lower urinary tract symptoms Status: Chronic Assessment and Plan: continue on Flomax. DS: Summary Hospital Course Hospital Course: see discharge summary. Patient went home after laparoscopic repair of incisional hernia on postop day 2. Time Spent with Patient Time attestation: Total time spent providing and/or coordinating discharge services: patient underwent laparoscopic repair of a left flank incisional hernia on 12/16/2020. This was repaired with 15 x 20 cm Symbotex mesh. The patient did well after surgery. His Jantoven was held prior to surgery. It was restarted the day after surgery. He was kept on a prophylactic dose of Lovenox perioperatively. He was kept overnight postop day 1. Due to pain control and trouble ambulating due to incisional pain. He was doing much better and able to be discharged on postop day 2. In good condition. He will follow up with Dr. mclean in approximately 2 weeks. His Jantoven will be continued on his usual home dose. Exam GI: Inspection: non-distended, incision ( all incisions healing well) and no visible herniation ( No hernia but small seroma developing which is not unexpected) GI Palp: Yes Soft to palpation, Yes Tenderness to palpation present (GI) ( mild tenderness in the area of repair) and No Hernia present Auscultation: normal bowel sounds DS: Data Data Completed and Pending Labs on day of discharge: Labs from last 24 hours 12/19/20 05:24 PT 14.3 INR 1.1 Discharge Plan Discharge Attending physician on discharge: Mark Mclean Discharging Clinician: Mark Mclean Anticipated Discharge Date/Time: 12/19/20 10:15 Patient Disposition: Home, Self-Care Activity: may shower and as tolerated Diet: regular Wound Care Instructions: incision open to air Discharge Instructions: 1. May shower and wash the incisions with soap and water daily. 2. Call office for: -Wound increasingly painful or bleeding -Vomiting -Fever of greater than 101 degrees 3. Expect some blood on dressing and old blood on skin. 4. If no bowel movement for three days, take 1 oz. (30 ml) Milk of Magnesia, if no results, take Fleets enema. 5. No heavy lifting > 15-20 pounds for 2 weeks. 6. No driving for 3 days or while taking narcotic pain medications. 7. Up walking 10-30 minutes three times per day. 8. Resume previous home medications. 9. Follow-up 10-14 days in office for wound check or as previously sc
[2020-12-19 10:50] VITALS: BP 150/88; PULSE 93; RESP 18; TEMP 37; O2SAT 95
--- NOTE | 2020-12-19 13:56 | PC.NURSE ---
On 12/19/20, the student, [ Estelita Bustamante], provided care and completed [facility] documentation on this patient. I have reviewed the student's documentation and agree with the findings.
== END 2020-12-19 12:40 | disposition home or self-care (01) ==
LOC: ANHSURGERY 17:41 → ANH2MED 17:41
PROVIDERS: Anesthesiology; Admitting Provider Surgery; PCP Internal Medicine; Visit Provider Surgery
PROC: (CPT 49654; principal; 2020-12-17 13:00)
DX: K43.0 Incisional hernia with obstruction, without gangrene (principal); D68.51 Activated protein C resistance; Z79.01 Long term (current) use of anticoagulants; G47.33 Obstructive sleep apnea (adult) (pediatric); Z99.89 Dependence on other enabling machines and devices; N40.0 Benign prostatic hyperplasia without lower urinary tract symptoms; Z86.718 Personal history of other venous thrombosis and embolism; Z79.899 Other long term (current) drug therapy; I10 Essential (primary) hypertension; E78.00 Pure hypercholesterolemia, unspecified; F12.90 Cannabis use, unspecified, uncomplicated; E66.3 Overweight; Z68.29 Body mass index [BMI] 29.0-29.9, adult; Z96.642 Presence of left artificial hip joint; Z98.890 Other specified postprocedural states; Z86.711 Personal history of pulmonary embolism
CPT/HCPCS: 49654; 36415; 80048; 85027; 85610; 85730; A9270; C1781; C9803; G0378; J0690; J1100; J1170; J1650; J1885; J2405; J2704; J3010; J7120; U0003; U0005

== ENCOUNTER 2021-02-24 08:46 | Outpatient (CLI) | payer MEDICARE, SELFPAY ==
[2021-02-24 09:02] LABS: Basophils Absolute Auto 0.02 K/mm3 (0.00-0.10); Basophils Percent Auto 0.4 % (0.0-1.0); Eosinophils Absolute Auto 0.21 K/mm3 (0.02-0.50); Eosinophils Percent Auto 4.5 % (1.0-6.0); Hematocrit 45.6 % (37.0-46.0); Hemoglobin 15.1 g/dL (12.4-15.3); Immature Granulocyte Absolute 0.01 K/mm3 (0.00-0.00); Immature Granulocyte Percent A 0.2 % (0.0-0.0); Lymphocytes Absolute Auto 1.13 K/mm3 (1.10-4.50); Lymphocytes Percent Auto 24.2 % (18.0-42.0); Mean Corpuscular HGB Conc 33.1 g/dL (32.0-36.0); Mean Corpuscular Hemoglobin 31.6 pg (27.0-31.0); Mean Corpuscular Volume 95.4 fL (78.0-102.0); Mean Platelet Volume 10.4 fl (8.7-11.0); Monocytes Absolute Auto 0.46 K/mm3 (0.10-0.90); Monocytes Percent Auto 9.9 % (2.0-11.0); Neutrophils Absolute Auto 2.8 K/mm3 (1.7-7.2); Neutrophils Percent Auto 60.8 % (50.0-70.0); Platelet Count Result 169 K/mm3 (150-420); Red Blood Count 4.78 M/mm3 (4.70-6.10); Red Cell Distribution Width 13.2 % (11.6-14.4); White Blood Count 4.7 K/mm3 (4.8-10.8)
[2021-02-24 09:08] LABS: Add Urine Microscopic? NO; Appearance Urine Clear (Clear); Bilirubin Urine Negative (Negative); Blood Urine Negative (Negative); Color Urine Yellow (Yellow); Glucose Urine UA Negative (Negative); Ketones Urine Negative (Negative); Leukocyte Esterase Ur Negative LEU/UL (Negative); Nitrate Urine Negative (Negative); Protein Urine Negative (Negative); Specific Grav Ur 1.015 (1.010-1.020); Urobilinogen Urine 0.2 mg/dL (0.2-1.0); pH Urine 6.5 (5.0-8.0)
[2021-02-24 09:14] LABS: INR 2.2
[2021-02-24 09:23] LABS: Creatinine Urine 86.21 mg/dL (40-278); Microalbumin Urine Random < 13.0 mg/L
[2021-02-24 09:54] LABS: Alanine Aminotransferase 32 U/L (16-63); Albumin Level 3.6 g/dL (3.4-5.0); Alkaline Phosphatase 73 U/L (46-116); Anion Gap 9 mmol/L (8-16); Aspartate Amino Transferase 24 U/L (15-37); Bilirubin,Total 0.8 mg/dL (0.00-1.00); Blood Urea Nitrogen 20 mg/dL (7-18); Calcium 8.7 mg/dL (8.5-10.1); Carbon Dioxide 29 mmol/L (21-32); Chloride 104 mmol/L (98-108); Cholesterol 175 mg/dL (0-200); Creatine Kinase 162 U/L (39-308); Estimated Glomerular Filt Rate > 60; Glucose 108 mg/dL (70-99); HDL Direct 49 mg/dL (40-60); LDL Cholesterol Calculated 103 mg/dL (<130); Osmolality Calculated 297 mOsm/kg (285-295); Potassium 4.4 mmol/L (3.5-5.1); Sodium 142 mmol/L (136-145); Total Protein 6.4 g/dL (6.4-8.2); Triglycerides 114 mg/dL (0-150)
[2021-02-26 17:29] LABS: Vitamin D 25 Hydroxy 25 ng/mL (30-100)
== END 2021-02-24 08:47 | disposition home or self-care (01) ==
LOC: CHSLAB 08:49
PROVIDERS: PCP Internal Medicine; Visit Provider Internal Medicine
DX: E78.2 Mixed hyperlipidemia (principal); I10 Essential (primary) hypertension; R73.01 Impaired fasting glucose; D68.69 Other thrombophilia; R31.29 Other microscopic hematuria; E55.9 Vitamin D deficiency, unspecified; Z79.01 Long term (current) use of anticoagulants
CPT/HCPCS: 36415; 80053; 80061; 81003; 82043; 82306; 82550; 83036; 85025; 85610

== ENCOUNTER → 2021-03-02 04:12 | Outpatient (CLI) | payer MEDICARE, SELFPAY ==
[2021-03-02 19:57] LABS: SARS-CoV-2 RNA PCR Negative
== END ==
PROVIDERS: PCP Internal Medicine; Visit Provider Internal Medicine Gastroenterology
DX: Z01.812 Encounter for preprocedural laboratory examination (principal); Z20.822 Contact with and (suspected) exposure to COVID-19
CPT/HCPCS: C9803; U0003; U0005

== ENCOUNTER 2021-03-05 01:59 | Day surgery (SDC) | payer MEDICARE, SELFPAY ==
[2021-02-20 14:07] VITALS: BMI 28.8
--- NOTE | 2021-03-02 14:55 | SUR.PREOP ---
Pt reportedly was instructed to stop taking Coumadin 5 days prior to procedure my MD Sheth. Consult for regarding verification of this was faced on the and then on the . RN spoke to office on Tuesday and was told that they would have to wait until MD was in the office Tuesday. Office contacted Tuesday and told RN that MD would not sign paperwork until pt had been seen in office. Pt to be seen in office on Tuesday the .
--- NOTE | 2021-03-04 11:26 | WPDANESEPPF ---
Anes - Initial Pre Proc Eval Procedure: Operation Date: 03/05/21 09:15 Proposed Procedures p Screening Colonoscopy - Ge Seymour MD Date/Time: 03/04/21 11:26 Surgeon: Ge Seymour MD Pre Op Diagnosis: hx of colon ca Patient Data Age: 70 Gender: M Height: 1.78 m Weight: 91 kg Allergies Allergy/AdvReac Type Severity Reaction Status Date / Time No Known Allergies Allergy Unknown Verified 03/05/21 07:43 Home Medications Medication Instructions Recorded Confirmed Type cholecalciferol (vitamin D3) 75 75 mcg PO QAM 08/11/20 02/20/21 History mcg (3,000 unit) tablet folic acid 1 mg tablet 1 mg PO DAILY 08/11/20 02/20/21 History lovastatin 40 mg tablet 40 mg PO QAM 08/11/20 02/20/21 History tamsulosin 0.4 mg capsule 0.4 mg PO QAM 08/11/20 02/20/21 History warfarin 4 mg tablet 4 mg PO QAM 08/11/20 03/05/21 History glucosamine-chondroitin 1 tablet PO QAM 09/11/20 02/20/21 History Patient hx anesthesia problems: none Family hx anesthesia problems: none PMFSH Past Medical History Medical History Arthritis BPH (benign prostatic hyperplasia) Factor V Leiden History of blood clots History of high blood pressure History of high cholesterol AYAKA on CPAP Pulmonary embolism Surgical History Surgical History H/O umbilical hernia repair approx 2014 Dr. Angeles H/O ventral hernia repair 12/17/20 Laparoscopic repair incisional hernia with 15 x 20 cm Symbotex mesh History of cystoscopy 2014, OA Dr. Langley History of left hip replacement 2014 History of prostate biopsy 2009, OA Dr. White Status post partial colectomy 10/2019: partial right colectomy for dyplastic polyp, [place] Family History Family History Father , age 80 Family history of cardiovascular disease Acute myocardial infarction Sibling , age 63 Family history of cardiovascular disease Acute myocardial infarction Mother , age 78 Family history of lung cancer Diabetes mellitus Social History Social History (Reviewed 01/19/21 @ 13:50 by Rajni Ho [facility]) Smoking status: Never smoker Alcohol intake: current Drinks per week: 21 Alcohol use details: Rum Substance use: current Substance use type: marijuana Other substance usage details: DAILY Last use: 12/16/20 Living arrangements: with family 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 Gender identity (if verbalized by the patient): Male Spiritual care concerns: No Anes - Eval Final PreProcedure Day of Procedure 03/04/21 11:26 Patient weight: overweight Heart: regular rate and rhythm Lungs: clear to auscultation and normal air movement Airway: Mallampati scale class II Neurological: alert and oriented Last oral intake: >/= 8 hours ASA classification: III Emergent: no Anesthetic plan: proceed Anesthesia type and monitoring: general GIVS and standard monitoring Informed Consent: The patient's anesthetic plan and its attendant risks and benefits were discussed with the patient/family/POA. Questions were solicited and answers provided to the satisfaction of the patient/family/POA.
[2021-03-05 07:45] VITALS: BP 121/74; PULSE 86; RESP 18; TEMP 36.2; O2SAT 98; BMI 29.2
[2021-03-05] MEDS: LACTATED RINGERS 1,000 ML 150 ML IV CONT (08:04)
--- NOTE | 2021-03-05 08:43 | PM.HPGS ---
History of Present Illness History of Present Illness Consent: Risks, benefits, and alternatives have been discussed and questions answered. Patient agrees to proceed with procedure. Chief complaint: hx of colon ca Narrative: Mark Chatman is a 70 year old male with a history of colon cancer. He had a advanced adenoma removed surgically 1 year ago at [facility] Review of Systems Review of Systems: All systems reviewed & are unremarkable except as noted in HPI and below PMFSH Past Medical History Medical History Arthritis BPH (benign prostatic hyperplasia) Factor V Leiden History of blood clots History of high blood pressure History of high cholesterol AYAKA on CPAP Pulmonary embolism Surgical History Surgical History H/O umbilical hernia repair approx 2014 Dr. Angeles H/O ventral hernia repair 12/17/20 Laparoscopic repair incisional hernia with 15 x 20 cm Symbotex mesh History of cystoscopy 2014, OA Dr. Langley History of left hip replacement 2014 History of prostate biopsy 2009, OA Dr. White Status post partial colectomy 10/2019: partial right colectomy for dyplastic polyp, [place] Family History Family History Father , age 80 Family history of cardiovascular disease Acute myocardial infarction Sibling , age 63 Family history of cardiovascular disease Acute myocardial infarction Mother , age 78 Family history of lung cancer Diabetes mellitus Social History Social History Smoking status: Never smoker Alcohol intake: current Drinks per week: 21 Alcohol use details: Rum Substance use: current Substance use type: marijuana Other substance usage details: DAILY Last use: 12/16/20 Living arrangements: with family 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 Gender identity (if verbalized by the patient): Male Spiritual care concerns: No Meds Home Medications and Allergies Home Medications Medication Instructions Recorded Confirmed Type cholecalciferol (vitamin D3) 75 75 mcg PO QAM 08/11/20 02/20/21 History mcg (3,000 unit) tablet folic acid 1 mg tablet 1 mg PO DAILY 08/11/20 02/20/21 History lovastatin 40 mg tablet 40 mg PO QAM 08/11/20 02/20/21 History tamsulosin 0.4 mg capsule 0.4 mg PO QAM 08/11/20 02/20/21 History warfarin 4 mg tablet 4 mg PO QAM 08/11/20 03/05/21 History glucosamine-chondroitin 1 tablet PO QAM 09/11/20 02/20/21 History Allergies Allergy/AdvReac Type Severity Reaction Status Date / Time No Known Allergies Allergy Unknown Verified 03/05/21 07:43 Vital Signs Vital Signs - 24 hr 03/05/21 07:45 Temperature 36.2 C L Pulse Rate 86 Respiratory Rate 18 Blood Pressure 121/74 Pulse Oximetry 98 Exam Resp: Auscultation: clear to auscultation bilaterally Cardio: Rate: regular rate Rhythm: regular rhythm GI: GI Palp: Yes Soft to palpation and No Tenderness to palpation present (GI) Assessment and Plan Assessment and plan (1) Personal history of colonic polyps: Code(s): Z86.010 - Personal history of colonic polyps Status: Acute Assessment and Plan: Colonoscopy with possible biopsy or polypectomy or cautery or injection of substances.
[2021-03-05 09:38] VITALS: BP 122/79; PULSE 69; RESP 18; O2SAT 99
[2021-03-05 09:48] VITALS: BP 144/88; PULSE 69; RESP 18; O2SAT 99
[2021-03-05 09:58] VITALS: BP 138/94; PULSE 72; RESP 18; O2SAT 100
== END 2021-03-05 10:09 | disposition home or self-care (01) ==
PROVIDERS: PCP Internal Medicine; Visit Provider Internal Medicine Gastroenterology
PROC: 0DJD8ZZ Inspection of Lower Intestinal Tract, Via Natural or Artificial Opening Endoscopic (ICD-10-PCS; CPT 45378; principal; 2021-03-05 09:15)
DX: Z12.11 Encounter for screening for malignant neoplasm of colon (principal); D12.3 Benign neoplasm of transverse colon; K57.30 Diverticulosis of large intestine without perforation or abscess without bleeding; Z98.0 Intestinal bypass and anastomosis status; Z85.038 Personal history of other malignant neoplasm of large intestine; Z79.01 Long term (current) use of anticoagulants; M19.90 Unspecified osteoarthritis, unspecified site; N40.0 Benign prostatic hyperplasia without lower urinary tract symptoms; D68.51 Activated protein C resistance; G47.33 Obstructive sleep apnea (adult) (pediatric); Z86.711 Personal history of pulmonary embolism; F12.90 Cannabis use, unspecified, uncomplicated
CPT/HCPCS: 45380; 88305; C9803; J2704; J7120; U0003; U0005

== ENCOUNTER 2021-04-14 14:16 | Outpatient (CLI) | payer MEDICARE, SELFPAY ==
--- NOTE | ~2021-04-14 | XR_ITS ---
XR hip LT min 2V 04/14/2021 14:38 Indication: Left hip pain Procedure: 2 views left hip Comparison: 09/03/2014 Findings: There is a left total hip arthroplasty. No acute fracture or traumatic malalignment. There are loose bodies lateral to the hip. Surrounding osseous structures and soft tissues are unremarkable . Impression: 1: No acute bone or joint abnormality. Reviewed, dictated and finalized at location B. Impression: 1: No acute bone or joint abnormality.
[2021-04-14 14:43] LABS: INR 2.9; Prothrombin Time 29.1 Seconds (9.50-12.10)
[2021-04-16 12:05] LABS: Anti Nuclear Antibody Titer 1:40 (Negative)
[2021-04-17 10:35] LABS: SS-A <1.0; SS-B <1.0
== END 2021-04-14 14:17 | disposition home or self-care (01) ==
LOC: CHSIMG 14:19
PROVIDERS: PCP Internal Medicine; Visit Provider Internal Medicine
DX: Z79.01 Long term (current) use of anticoagulants (principal); L74.4 Anhidrosis; M25.552 Pain in left hip
CPT/HCPCS: 36415; 73502; 85610; 86038; 86039; 86235

== ENCOUNTER 2021-04-23 14:30 | Outpatient (CLI) | payer MEDICARE, SELFPAY ==
--- NOTE | ~2021-04-23 | CT_ITS ---
EXAMINATION: CT hip LT wo con DATE: 04/23/2021 14:58 INDICATION: Left hip pain TECHNIQUE: High resolution computed tomography (CT) of the left hip was performed without intravenous contrast. Additional sagittal and coronal reconstructions were performed. Automated exposure control and iterative reconstruction technique were employed. The dose-length product was 506.45 mGy-cm. COMPARISON: Left hip radiographs dated 04/14/2021 FINDINGS: Noncemented left total hip arthroplasty which appears well seated in near-anatomic alignment. The sudha tabular component is affixed with 2 screws. No lucency surrounding the arthroplasty components to sug gest loosening or infection. No fracture. Several small heterotopic ossicles related to the prior raven [place] extending cephalad from the greater trochanter along the superficial margin of the left gluteus minimus tendon. No evident left hip joint effusion. Mild to moderate left sacroiliac osteoarthritis. Multiple diverticula are seen along the sigmoid colon without surrounding inflammatory change to sugg est diverticulitis. Prostatomegaly. Bladder is normal. Moderate-sized fat-containing left inguinal he rnia. No free fluid in the pelvis. No pathologically enlarged left pelvic or inguinal lymphadenopathy . IMPRESSION: 1. Left total hip arthroplasty in near-anatomic alignment which appears well seated with no evident l oosening, fracture or joint effusion. 2. Moderate-sized fat-containing left inguinal hernia. 3. Mild to moderate left sacral iliac osteoarthritis. 4. Sigmoid diverticulosis. Reviewed, dictated and finalized at location A. IMPRESSION: 1. Left total hip arthroplasty in near-anatomic alignment which appears well se ated with no evident loosening, fracture or joint effusion. 2. Moderate-sized fat-containing left inguinal hernia. 3. Mild to moderate left sacral iliac osteoarthritis. 4. Sigmoid diverticulosis.
== END 2021-04-23 14:31 | disposition home or self-care (01) ==
LOC: CHSIMG 14:34
PROVIDERS: PCP Internal Medicine; Visit Provider Internal Medicine
DX: M25.552 Pain in left hip (principal); Z96.642 Presence of left artificial hip joint; M46.1 Sacroiliitis, not elsewhere classified
CPT/HCPCS: 73700

== ENCOUNTER 2021-06-24 16:40 | Outpatient (CLI) | payer MEDICARE, SELFPAY ==
[2021-06-24 17:05] LABS: INR 1.4; Prothrombin Time 15.1 Seconds (9.50-12.10)
[2021-06-24 17:19] LABS: Free T3 2.42 pg/mL (2.18-3.98); Free T4 Free Thyroxine 0.87 ng/dL (0.76-1.46); Thyroid Stimulating Hormone 1.07 uIU/mL (0.36-3.74)
== END 2021-06-24 16:41 | disposition home or self-care (01) ==
LOC: CHSIMG 16:42
PROVIDERS: PCP Internal Medicine; Visit Provider Internal Medicine
DX: L74.4 Anhidrosis (principal); R53.83 Other fatigue; Z79.01 Long term (current) use of anticoagulants
CPT/HCPCS: 36415; 84439; 84443; 84481; 85610

== ENCOUNTER 2021-07-15 11:15 | Outpatient (RCR) | payer MEDICARE, SELFPAY ==
[2021-07-03 13:00] LABS: INR 2.6; Prothrombin Time 26.8 Seconds (9.50-12.10)
[2021-07-15 11:40] LABS: INR 2.3
== END 2021-10-01 23:59 | disposition home or self-care (01) ==
LOC: CHSLAB 11:15
PROVIDERS: PCP Internal Medicine; Visit Provider Internal Medicine
DX: Z79.01 Long term (current) use of anticoagulants (principal)
CPT/HCPCS: 36415; 85610

== ENCOUNTER 2021-08-25 09:19 | Outpatient (CLI) | payer MEDICARE, SELFPAY | END 2021-08-25 09:20 | disposition home or self-care (01) | PROVIDERS: PCP Internal Medicine; Visit Provider Specialist | DX: L57.0 Actinic keratosis (principal) | CPT/HCPCS: 88305 ==

== ENCOUNTER 2021-09-01 08:35 | Outpatient (CLI) | payer MEDICARE, SELFPAY ==
[2021-09-01 09:04] LABS: Hemoglobin A1C 5.9 % (<5.7)
[2021-09-01 09:10] LABS: Appearance Urine Clear (Clear); Bilirubin Urine Negative (Negative); Color Urine Light Yellow (Yellow); Glucose Urine UA Negative (Negative); Ketones Urine Negative (Negative); Leukocyte Esterase Ur Negative (Negative); Nitrate Urine Negative (Negative); Protein Urine Negative (Negative); Urobilinogen Urine 0.2 mg/dL (0.2-1.0)
[2021-09-01 09:17] LABS: Add Urine Microscopic? YES; Bacteria Urine Trace /hpf; Blood Urine Trace-Intact (Negative); WBC Urine None seen /hpf (0-3)
[2021-09-01 09:22] LABS: INR 3.8; Prothrombin Time 38.5 Seconds (9.50-12.10)
[2021-09-01 10:47] LABS: Alanine Aminotransferase 37 U/L (16-63); Albumin Level 3.7 g/dL (3.4-5.0); Alkaline Phosphatase 67 U/L (46-116); Anion Gap 8 mmol/L (8-16); Aspartate Amino Transferase 18 U/L (15-37); Bilirubin,Total 0.6 mg/dL (0.00-1.00); Blood Urea Nitrogen 18 mg/dL (7-18); Calcium 8.5 mg/dL (8.5-10.1); Carbon Dioxide 29 mmol/L (21-32); Chloride 106 mmol/L (98-108); Cholesterol 171 mg/dL (0-200); Creatine Kinase 167 U/L (39-308); Estimated Glomerular Filt Rate > 60; Glucose 98 mg/dL (70-99); HDL Direct 54 mg/dL (40-60); LDL Cholesterol Calculated 100 mg/dL (<130); Osmolality Calculated 297 mOsm/kg (285-295); Potassium 4.4 mmol/L (3.5-5.1); Prostate Specific Antigen 3.2 ng/mL (< OR = 4.0); Sodium 143 mmol/L (136-145); Total Protein 6.4 g/dL (6.4-8.2); Triglycerides 84 mg/dL (0-150)
== END 2021-09-01 08:36 | disposition home or self-care (01) ==
LOC: CHSLAB 08:36
PROVIDERS: PCP Internal Medicine; Visit Provider Internal Medicine
DX: R73.01 Impaired fasting glucose (principal); E78.2 Mixed hyperlipidemia; M81.0 Age-related osteoporosis without current pathological fracture; Z12.5 Encounter for screening for malignant neoplasm of prostate; Z79.01 Long term (current) use of anticoagulants
CPT/HCPCS: 36415; 80053; 80061; 81001; 82550; 83036; 84153; 85610; G0103

== ENCOUNTER 2021-10-05 13:31 | Outpatient (CLI) | payer MEDICARE, SELFPAY ==
[2021-10-05 13:46] LABS: Add Urine Microscopic? YES; Appearance Urine Clear (Clear); Bilirubin Urine Negative (Negative); Blood Urine 3+ (Negative); Color Urine Yellow (Yellow); Glucose Urine UA Negative (Negative); Ketones Urine Negative (Negative); Leukocyte Esterase Ur Negative (Negative); Nitrate Urine Negative (Negative); Protein Urine Negative (Negative); Specific Grav Ur 1.025 (1.010-1.020); Urobilinogen Urine 0.2 mg/dL (0.2-1.0)
[2021-10-05 13:53] LABS: INR 3.2; Prothrombin Time 32.6 Seconds (9.50-12.10)
[2021-10-05 14:00] LABS: Bacteria Urine Trace /hpf; RBC Urine 21-50 /hpf (0-2); WBC Urine 0-3 /hpf (0-3)
== END 2021-10-05 13:32 | disposition home or self-care (01) ==
LOC: CHSLAB 13:33
PROVIDERS: PCP Internal Medicine; Visit Provider Internal Medicine
DX: Z79.01 Long term (current) use of anticoagulants (principal); R31.29 Other microscopic hematuria
CPT/HCPCS: 36415; 81001; 85610; 88112; 88175; G0145

== ENCOUNTER 2021-11-06 07:17 | Outpatient (CLI) | payer MEDICARE, SELFPAY ==
[2021-11-06 09:48] LABS: INR 3.6; Prothrombin Time 36.6 Seconds (9.50-12.10)
[2021-11-06 09:51] LABS: SARS-CoV-2 RNA PCR Negative (Negative)
== END 2021-11-06 07:18 | disposition home or self-care (01) ==
PROVIDERS: PCP Internal Medicine; Visit Provider Internal Medicine
DX: Z79.01 Long term (current) use of anticoagulants (principal); Z20.822 Contact with and (suspected) exposure to COVID-19
CPT/HCPCS: 36415; 85610; C9803; U0003; U0005

== ENCOUNTER 2021-12-01 08:10 | Outpatient (CLI) | payer MEDICARE, SELFPAY ==
--- NOTE | ~2021-12-01 | CT_ITS ---
EXAMINATION: CT abdomen pelvis wo/w con DATE: 12/01/2021 09:32 INDICATION: Gross hematuria. Microhematuria. Severe right hip pain. TECHNIQUE: Computed tomography (CT) of the abdomen and pelvis was performed without and subsequently with 130 cc Omnipaque 350 intravenous contrast. Automated exposure control and iterative reconstructi on technique were employed. Exam dose: 1858.32 mGy-cm total exam DLP. COMPARISON: 12/01/2021 KUB 08/07/2020 CT abdomen pelvis with IV contrast material FINDINGS: There is discoid atelectasis or scarring in both lower lobes. No infiltrate or consolidatio n at the included lower lung zones. Normal heart size. No pericardial or pleural effusion. 12 mm gallstone. No gallbladder wall thickening or pericholecystic fluid or fat stranding. Occasional hepatic and multiple splenic calcified granulomas consistent with old granulomatous diseas e. No hepatic, splenic or pancreatic space-occupying mass lesion. Normal morphology of the adrenal gland s. Approximately 7.8 x 11.8 mm and 5 x 7.5 mm and 3 mm lower pole left renal calculi, the larger calculu s measuring approximately 1437 Hounsfield units. No ureteral calculus or hydroureteronephrosis. Right renal 5 mm up to 3.3 cm cysts. 4.4 centers left renal cyst. Status post right partial colectomy. There are numerous diverticula of the sigmoid colon primarily; no CT evidence of diverticulitis. No b owel obstruction, bowel wall thickening, pneumatosis or intraperitoneal free air is evident. There is abdominal aortic calcification but no aneurysm. No intraperitoneal or retroperitoneal or pel kavon mass lesion or adenopathy or ascites is noted. There are bilateral fat-containing inguinal hernias. Status post total left hip arthroplasty. Prostate prominent enlargement and occasional prostate calcifications. There is diffuse thickening of the urinary bladder wall likely secondary to prostate enlargement and bladder outlet obstruction. Degenerative changes of lower thoracic spine and prominent multilevel degenerative disc disease of th e lumbar spine. No suspicious osteolytic or osteoblastic lesions are noted. IMPRESSION: Cholelithiasis Bilateral renal cysts Nonobstructive lower pole left renal calculi Diverticulosis of sigmoid colon; no CT evidence of diverticulitis Bilateral fat-containing inguinal hernias Status post left total hip arthroplasty Prostate enlargement and associated bladder wall thickening Reviewed, dictated and finalized at [facility]. Reviewed, dictated and finalized at location A. 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
--- NOTE | ~2021-12-01 | XR_ITS ---
XR abdomen/kub 1V 12/01/2021 09:32 INDICATION: Gross hematuria TECHNIQUE: KUB COMPARISON: CT dated 12/01/2021 FINDINGS: Bowel gas pattern is normal. There are left renal stones, largest measuring 1.3 cm maximum dimension. There are surgical changes in the right upper abdomen. There is severe lumbar spondylosis with dextroscoliosis. There are calcified splenic granulomas. There is no evidence of free air, mass, organomegaly, ascites or obstruction. No abnormal calculi are seen. The bones appear intact. IMPRESSION: 1: Left nephrolithiasis. Reviewed, dictated and finalized at location B. 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
[2021-12-01 08:37] LABS: INR 2.2; Prothrombin Time 22.3 Seconds (9.50-12.10)
[2021-12-01 08:42] LABS: Estimated Glomerular Filt Rate 53
== END 2021-12-01 08:11 | disposition home or self-care (01) ==
LOC: CHSIMG 08:12
PROVIDERS: PCP Internal Medicine; Visit Provider Urology
DX: R31.29 Other microscopic hematuria (principal); R31.0 Gross hematuria; Z79.01 Long term (current) use of anticoagulants
CPT/HCPCS: 36415; 74018; 74178; 85610; Q9967

== ENCOUNTER 2022-01-27 15:07 | Outpatient (RCR) | payer MEDICARE, SELFPAY ==
[2021-11-24 13:21] LABS: Prothrombin Time 80.9 Seconds (9.50-12.10)
[2021-11-26 16:22] LABS: Prothrombin Time 53.2 Seconds (9.50-12.10)
[2021-11-26 16:29] LABS: INR 5.4
[2021-12-11 11:35] LABS: INR 1.8; Prothrombin Time 19.1 Seconds (9.50-12.10)
[2021-12-21 11:47] LABS: INR 1.7; Prothrombin Time 17.5 Seconds (9.50-12.10)
[2021-12-29 11:32] LABS: Prothrombin Time 30.3 Seconds (9.50-12.10)
[2022-01-27 15:29] LABS: INR 2.1; Prothrombin Time 21.9 Seconds (9.50-12.10)
== END 2022-02-22 23:59 | disposition home or self-care (01) ==
LOC: CHSLAB 15:07
PROVIDERS: PCP Internal Medicine; Visit Provider Internal Medicine
DX: Z79.01 Long term (current) use of anticoagulants (principal)
CPT/HCPCS: 36415; 85610

== ENCOUNTER 2022-03-25 08:59 | Outpatient (CLI) | payer MEDICARE, SELFPAY ==
[2022-03-25 09:24] LABS: Add Urine Microscopic? NO; Appearance Urine Clear (Clear); Basophils Absolute Auto 0.01 K/mm3 (0.00-0.10); Basophils Percent Auto 0.2 % (0.0-1.0); Bilirubin Urine Negative (Negative); Blood Urine Negative (Negative); Color Urine Light Yellow (Yellow); Eosinophils Absolute Auto 0.23 K/mm3 (0.02-0.50); Eosinophils Percent Auto 4.5 % (1.0-6.0); Glucose Urine UA Negative (Negative); Hemoglobin 15.5 g/dL (12.4-15.3); Immature Granulocyte Absolute 0.01 K/mm3 (0.00-0.00); Immature Granulocyte Percent A 0.2 % (0.0-0.0); Ketones Urine Negative (Negative); Leukocyte Esterase Ur Negative LEU/UL (Negative); Lymphocytes Absolute Auto 1.22 K/mm3 (1.10-4.50); Lymphocytes Percent Auto 24.1 % (18.0-42.0); Mean Corpuscular HGB Conc 31.6 g/dL (32.0-36.0); Mean Corpuscular Hemoglobin 30.3 pg (27.0-31.0); Mean Corpuscular Volume 95.9 fL (78.0-102.0); Mean Platelet Volume 10.1 fl (8.7-11.0); Monocytes Absolute Auto 0.49 K/mm3 (0.10-0.90); Monocytes Percent Auto 9.7 % (2.0-11.0); Neutrophils Absolute Auto 3.1 K/mm3 (1.7-7.2); Neutrophils Percent Auto 61.3 % (50.0-70.0); Nitrate Urine Negative (Negative); Platelet Count Result 201 K/mm3 (150-420); Protein Urine Negative (Negative); Red Blood Count 5.11 M/mm3 (4.70-6.10); Red Cell Distribution Width 13.2 % (11.6-14.4); Urobilinogen Urine 0.2 mg/dL (0.2-1.0); White Blood Count 5.1 K/mm3 (4.8-10.8)
[2022-03-25 09:36] LABS: Creatinine Urine 138.18 mg/dL (40-278); MALB Creatinine Ratio 12.8 mg/g (0-30); Microalbumin Urine Random 17.7 mg/L
[2022-03-25 09:37] LABS: INR 1.4; Prothrombin Time 14.4 Seconds (9.50-12.10)
[2022-03-25 09:38] LABS: Hemoglobin A1C 5.8 % (<5.7)
[2022-03-25 09:44] LABS: Alanine Aminotransferase 33 U/L (16-63); Albumin Level 3.7 g/dL (3.4-5.0); Alkaline Phosphatase 68 U/L (46-116); Anion Gap 5 mmol/L (8-16); Aspartate Amino Transferase 15 U/L (15-37); Bilirubin,Total 0.7 mg/dL (0.00-1.00); Blood Urea Nitrogen 16 mg/dL (7-18); Calcium 8.7 mg/dL (8.5-10.1); Carbon Dioxide 30 mmol/L (21-32); Chloride 105 mmol/L (98-108); Cholesterol 164 mg/dL (0-200); Creatine Kinase 113 U/L (39-308); Estimated Glomerular Filt Rate > 60; Glucose 112 mg/dL (70-99); HDL Direct 51 mg/dL (40-60); LDL Cholesterol Calculated 95 mg/dL (<130); Osmolality Calculated 292 mOsm/kg (285-295); Potassium 4.3 mmol/L (3.5-5.1); Sodium 140 mmol/L (136-145); Triglycerides 89 mg/dL (0-150)
[2022-03-30 20:08] LABS: Vitamin D 25 Hydroxy 33 ng/mL (30-100)
== END 2022-03-25 09:00 | disposition home or self-care (01) ==
LOC: CHSLAB 09:02
PROVIDERS: PCP Internal Medicine; Visit Provider Internal Medicine
DX: E78.5 Hyperlipidemia, unspecified (principal); I10 Essential (primary) hypertension; R73.01 Impaired fasting glucose; E55.9 Vitamin D deficiency, unspecified; Z79.01 Long term (current) use of anticoagulants
CPT/HCPCS: 36415; 80053; 80061; 81003; 82043; 82306; 82550; 83036; 85025; 85610

== ENCOUNTER 2022-04-02 09:50 | Outpatient (RCR) | payer MEDICARE, SELFPAY ==
[2022-02-23 10:15] LABS: INR 2.2; Prothrombin Time 22.6 Seconds (9.50-12.10)
[2022-04-02 10:11] LABS: INR 2.9; Prothrombin Time 29.6 Seconds (9.50-12.10)
== END 2022-05-24 23:59 | disposition home or self-care (01) ==
LOC: CHSLAB 09:50
PROVIDERS: PCP Internal Medicine; Visit Provider Internal Medicine
DX: Z79.01 Long term (current) use of anticoagulants (principal)
CPT/HCPCS: 36415; 85610

== ENCOUNTER 2022-08-03 11:55 | Outpatient (RCR) | payer MEDICARE, SELFPAY ==
[2022-06-08 12:33] LABS: INR 2.2
[2022-08-03 12:18] LABS: INR 2.7; Prothrombin Time 27.5 Seconds (9.50-12.10)
== END 2022-09-06 23:59 | disposition home or self-care (01) ==
LOC: CHSLAB 11:55
PROVIDERS: PCP Internal Medicine; Visit Provider Internal Medicine
DX: Z79.01 Long term (current) use of anticoagulants (principal)
CPT/HCPCS: 36415; 85610

== ENCOUNTER 2022-10-04 09:50 | Outpatient (CLI) | payer MEDICARE, SELFPAY ==
[2022-10-04 10:06] LABS: Basophils Absolute Auto 0.01 K/mm3 (0.00-0.10); Basophils Percent Auto 0.2 % (0.0-1.0); Eosinophils Absolute Auto 0.18 K/mm3 (0.02-0.50); Hematocrit 44.4 % (37.0-46.0); Hemoglobin 14.4 g/dL (12.4-15.3); Immature Granulocyte Absolute 0.01 K/mm3 (0.00-0.00); Immature Granulocyte Percent A 0.2 % (0.0-0.0); Lymphocytes Absolute Auto 1.12 K/mm3 (1.10-4.50); Mean Corpuscular HGB Conc 32.4 g/dL (32.0-36.0); Mean Corpuscular Hemoglobin 31.4 pg (27.0-31.0); Mean Corpuscular Volume 96.9 fL (78.0-102.0); Mean Platelet Volume 9.8 fl (8.7-11.0); Monocytes Absolute Auto 0.38 K/mm3 (0.10-0.90); Monocytes Percent Auto 8.5 % (2.0-11.0); Neutrophils Absolute Auto 2.8 K/mm3 (1.7-7.2); Neutrophils Percent Auto 62.1 % (50.0-70.0); Platelet Count Result 191 K/mm3 (150-420); Red Blood Count 4.58 M/mm3 (4.70-6.10); Red Cell Distribution Width 13.7 % (11.6-14.4); White Blood Count 4.5 K/mm3 (4.8-10.8)
[2022-10-04 10:09] LABS: Appearance Urine Clear (Clear); Bilirubin Urine Negative (Negative); Blood Urine 2+ (Negative); Glucose Urine UA Negative (Negative); Ketones Urine Negative (Negative); Leukocyte Esterase Ur Negative LEU/UL (Negative); Nitrate Urine Negative (Negative); Protein Urine Negative (Negative); Specific Grav Ur 1.015 (1.010-1.020); Urobilinogen Urine 0.2 mg/dL (0.2-1.0)
[2022-10-04 10:18] LABS: Add Urine Microscopic? YES; Bacteria Urine None seen /hpf; Color Urine Light Yellow (Yellow); Squamous Epithelial Cell Urine Rare /hpf (Few); WBC Urine None seen /hpf (0-3)
[2022-10-04 10:19] LABS: INR 2.8; Prothrombin Time 28.5 Seconds (9.50-12.10)
[2022-10-04 10:38] LABS: Hemoglobin A1C 5.8 % (<5.7)
[2022-10-04 11:13] LABS: Alanine Aminotransferase 30 U/L (16-63); Albumin Level 3.7 g/dL (3.4-5.0); Alkaline Phosphatase 64 U/L (46-116); Anion Gap 7 mmol/L (8-16); Aspartate Amino Transferase 17 U/L (15-37); Bilirubin,Total 0.8 mg/dL (0.00-1.00); Blood Urea Nitrogen 16 mg/dL (7-18); Calcium 8.7 mg/dL (8.5-10.1); Carbon Dioxide 30 mmol/L (21-32); Chloride 108 mmol/L (98-108); Cholesterol 178 mg/dL (0-200); Creatine Kinase 126 U/L (39-308); Estimated Glomerular Filt Rate > 60; Glucose 98 mg/dL (70-99); HDL Direct 59 mg/dL (40-60); LDL Cholesterol Calculated 104 mg/dL (<130); Osmolality Calculated 301 mOsm/kg (285-295); Potassium 4.5 mmol/L (3.5-5.1); Prostate Specific Antigen 4.3 ng/mL (< OR = 4.0); Sodium 145 mmol/L (136-145); Total Protein 6.3 g/dL (6.4-8.2); Triglycerides 76 mg/dL (0-150)
[2022-10-06 20:20] LABS: Vitamin D 25 Hydroxy 35 ng/mL (30-100)
== END 2022-10-04 09:51 | disposition home or self-care (01) ==
LOC: CHSLAB 09:52
PROVIDERS: PCP Internal Medicine; Visit Provider Internal Medicine
DX: E78.2 Mixed hyperlipidemia (principal); I10 Essential (primary) hypertension; R73.01 Impaired fasting glucose; N40.1 Benign prostatic hyperplasia with lower urinary tract symptoms; E55.9 Vitamin D deficiency, unspecified; N39.0 Urinary tract infection, site not specified; Z79.01 Long term (current) use of anticoagulants
CPT/HCPCS: 36415; 80053; 80061; 81001; 82306; 82550; 83036; 84153; 85025; 85610

== ENCOUNTER 2022-11-15 15:09 | Outpatient (CLI) | payer MEDICARE, SELFPAY ==
--- NOTE | ~2022-11-15 | XR_ITS ---
EXAMINATION: XR chest 2V DATE: 11/15/2022 15:59 INDICATION: Cough and congestion TECHNIQUE: PA and lateral views of the chest are obtained. COMPARISON: 09/11/2020 FINDINGS: The lungs are free of acute opacities. A chronic nodule of the left lower lobe is consisten t with old granulomatous disease. No pleural effusion or pneumothorax. The cardiomediastinal silhouet te is normal. There is mild thoracic spondylosis. IMPRESSION: 1. No acute cardiopulmonary abnormality. Reviewed, dictated and finalized at location B. 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
[2022-11-15 16:00] LABS: Basophils Absolute Auto 0.02 K/mm3 (0.00-0.10); Basophils Percent Auto 0.3 % (0.0-1.0); Eosinophils Absolute Auto 0.13 K/mm3 (0.02-0.50); Eosinophils Percent Auto 1.7 % (1.0-6.0); Hemoglobin 13.5 g/dL (12.4-15.3); Immature Granulocyte Absolute 0.08 K/mm3 (0.00-0.00); Immature Granulocyte Percent A 1.1 % (0.0-0.0); Lymphocytes Percent Auto 14.6 % (18.0-42.0); Mean Corpuscular HGB Conc 32.1 g/dL (32.0-36.0); Mean Corpuscular Hemoglobin 30.6 pg (27.0-31.0); Mean Corpuscular Volume 95.2 fL (78.0-102.0); Mean Platelet Volume 9.8 fl (8.7-11.0); Monocytes Absolute Auto 0.71 K/mm3 (0.10-0.90); Monocytes Percent Auto 9.4 % (2.0-11.0); Neutrophils Absolute Auto 5.5 K/mm3 (1.7-7.2); Neutrophils Percent Auto 72.9 % (50.0-70.0); Platelet Count Result 256 K/mm3 (150-420); Red Blood Count 4.41 M/mm3 (4.70-6.10); Red Cell Distribution Width 12.8 % (11.6-14.4); White Blood Count 7.6 K/mm3 (4.8-10.8)
[2022-11-15 16:13] LABS: INR 3.3; Prothrombin Time 32.5 Seconds (9.50-12.10)
== END 2022-11-15 15:10 | disposition home or self-care (01) ==
LOC: CHSLAB 15:12
PROVIDERS: PCP Internal Medicine; Visit Provider Internal Medicine
DX: R05.9 Cough, unspecified (principal); R09.81 Nasal congestion
CPT/HCPCS: 36415; 71046; 85025; 85610

== ENCOUNTER 2023-03-08 15:36 | Outpatient (CLI) | payer MEDICARE, SELFPAY ==
[2023-03-08 16:26] LABS: INR 1.8; Prothrombin Time 18.5 Seconds (9.50-12.10)
== END 2023-03-08 15:37 | disposition home or self-care (01) ==
LOC: CHSLAB 15:39
PROVIDERS: PCP Internal Medicine; Visit Provider Urology
DX: R97.20 Elevated prostate specific antigen [PSA] (principal); Z79.01 Long term (current) use of anticoagulants
CPT/HCPCS: 36415; 84153; 85610

== ENCOUNTER 2023-04-05 08:11 | Outpatient (CLI) | payer MEDICARE, SELFPAY ==
[2023-04-05 08:31] LABS: Basophils Absolute Auto 0.01 K/mm3 (0.00-0.10); Basophils Percent Auto 0.2 % (0.0-1.0); Eosinophils Absolute Auto 0.22 K/mm3 (0.02-0.50); Eosinophils Percent Auto 4.5 % (1.0-6.0); Hematocrit 45.4 % (37.0-46.0); Hemoglobin 14.7 g/dL (12.4-15.3); Immature Granulocyte Absolute 0.01 K/mm3 (0.00-0.00); Immature Granulocyte Percent A 0.2 % (0.0-0.0); Lymphocytes Absolute Auto 1.26 K/mm3 (1.10-4.50); Lymphocytes Percent Auto 25.6 % (18.0-42.0); Mean Corpuscular HGB Conc 32.4 g/dL (32.0-36.0); Mean Corpuscular Volume 95.8 fL (78.0-102.0); Mean Platelet Volume 9.8 fl (8.7-11.0); Monocytes Absolute Auto 0.43 K/mm3 (0.10-0.90); Monocytes Percent Auto 8.7 % (2.0-11.0); Neutrophils Percent Auto 60.8 % (50.0-70.0); Platelet Count Result 175 K/mm3 (150-420); Red Blood Count 4.74 M/mm3 (4.70-6.10); Red Cell Distribution Width 13.2 % (11.6-14.4); White Blood Count 4.9 K/mm3 (4.8-10.8)
[2023-04-05 08:35] LABS: Appearance Urine Clear (Clear); Bilirubin Urine Negative (Negative); Blood Urine 2+ (Negative); Color Urine Light Yellow (Yellow); Glucose Urine UA Negative (Negative); Ketones Urine Negative (Negative); Leukocyte Esterase Ur Negative LEU/UL (Negative); Nitrate Urine Negative (Negative); Protein Urine Negative (Negative); Urobilinogen Urine 0.2 mg/dL (0.2-1.0)
[2023-04-05 08:44] LABS: INR 1.8; Prothrombin Time 19.2 Seconds (9.50-12.10)
[2023-04-05 08:45] LABS: Creatinine Urine 111.08 mg/dL (40-278); Hemoglobin A1C 5.8 % (<5.7); MALB Creatinine Ratio 11.7 mg/g (0-30); Microalbumin Urine Random < 13.0 mg/L
[2023-04-05 08:47] LABS: Add Urine Microscopic? YES
[2023-04-05 08:48] LABS: Bacteria Urine Rare /hpf; Other Sediment Urine Spermatazoa /hpf; WBC Urine None seen /hpf (0-3)
[2023-04-05 09:22] LABS: Alanine Aminotransferase 29 U/L (16-63); Albumin Level 3.6 g/dL (3.4-5.0); Alkaline Phosphatase 58 U/L (46-116); Anion Gap 3 mmol/L (8-16); Aspartate Amino Transferase 22 U/L (15-37); Bilirubin,Total 0.8 mg/dL (0.00-1.00); Blood Urea Nitrogen 19 mg/dL (7-18); Calcium 8.8 mg/dL (8.5-10.1); Carbon Dioxide 32 mmol/L (21-32); Chloride 106 mmol/L (98-108); Cholesterol 181 mg/dL (0-200); Creatine Kinase 157 U/L (39-308); Estimated Glomerular Filt Rate > 60; Glucose 104 mg/dL (70-99); HDL Direct 56 mg/dL (40-60); LDL Cholesterol Calculated 105 mg/dL (<130); Osmolality Calculated 294 mOsm/kg (285-295); Potassium 4.4 mmol/L (3.5-5.1); Sodium 141 mmol/L (136-145); Total Protein 6.1 g/dL (6.4-8.2); Triglycerides 102 mg/dL (0-150)
[2023-04-10 05:19] LABS: Vitamin D 25 Hydroxy 36 ng/mL (30-100)
== END 2023-04-05 08:12 | disposition home or self-care (01) ==
LOC: CHSLAB 08:14
PROVIDERS: PCP Internal Medicine; Visit Provider Internal Medicine
DX: I10 Essential (primary) hypertension (principal); E78.2 Mixed hyperlipidemia; R73.01 Impaired fasting glucose; D68.69 Other thrombophilia; E55.9 Vitamin D deficiency, unspecified; N39.0 Urinary tract infection, site not specified; Z79.01 Long term (current) use of anticoagulants
CPT/HCPCS: 36415; 80053; 80061; 81001; 82043; 82306; 82550; 83036; 85025; 85610

== ENCOUNTER 2023-06-04 11:31 | Outpatient (RCR) | payer MEDICARE, SELFPAY ==
[2023-03-17 11:11] LABS: INR 1.9; Prothrombin Time 19.3 Seconds (9.50-12.10)
[2023-04-12 09:06] LABS: Prothrombin Time 20.6 Seconds (9.50-12.10)
[2023-06-04 11:54] LABS: INR 3.1; Prothrombin Time 31.2 Seconds (9.50-12.10)
== END 2023-06-15 23:59 | disposition home or self-care (01) ==
LOC: CHSLAB 11:31
PROVIDERS: PCP Internal Medicine; Visit Provider Internal Medicine
DX: Z51.81 Encounter for therapeutic drug level monitoring (principal); Z79.01 Long term (current) use of anticoagulants
CPT/HCPCS: 36415; 85610

== ENCOUNTER 2023-10-10 09:33 | Outpatient (CLI) | payer MEDICARE, SELFPAY ==
[2023-10-10 09:49] LABS: Basophils Absolute Auto 0.02 K/mm3 (0.00-0.10); Basophils Percent Auto 0.4 % (0.0-1.0); Eosinophils Absolute Auto 0.12 K/mm3 (0.02-0.50); Eosinophils Percent Auto 2.6 % (1.0-6.0); Hematocrit 45.7 % (37.0-46.0); Hemoglobin 14.7 g/dL (12.4-15.3); Immature Granulocyte Absolute 0.01 K/mm3 (0.00-0.00); Immature Granulocyte Percent A 0.2 % (0.0-0.0); Lymphocytes Absolute Auto 1.04 K/mm3 (1.10-4.50); Lymphocytes Percent Auto 22.9 % (18.0-42.0); Mean Corpuscular HGB Conc 32.2 g/dL (32.0-36.0); Mean Corpuscular Hemoglobin 31.5 pg (27.0-31.0); Mean Corpuscular Volume 97.9 fL (78.0-102.0); Mean Platelet Volume 9.8 fl (8.7-11.0); Monocytes Absolute Auto 0.42 K/mm3 (0.10-0.90); Monocytes Percent Auto 9.3 % (2.0-11.0); Neutrophils Absolute Auto 2.9 K/mm3 (1.7-7.2); Neutrophils Percent Auto 64.6 % (50.0-70.0); Platelet Count Result 177 K/mm3 (150-420); Red Blood Count 4.67 M/mm3 (4.70-6.10); Red Cell Distribution Width 13.3 % (11.6-14.4); White Blood Count 4.5 K/mm3 (4.8-10.8)
[2023-10-10 09:51] LABS: Appearance Urine Clear (Clear); Bilirubin Urine Negative (Negative); Blood Urine 3+ (Negative); Color Urine Light Yellow (Yellow); Glucose Urine UA Negative (Negative); Ketones Urine Negative (Negative); Leukocyte Esterase Ur Negative (Negative); Nitrate Urine Negative (Negative); Protein Urine Negative (Negative); Specific Grav Ur 1.025 (1.010-1.020); Urobilinogen Urine 0.2 mg/dL (0.2-1.0)
[2023-10-10 10:00] LABS: Add Urine Microscopic? YES; Bacteria Urine Trace /hpf; RBC Urine 21-50 /hpf (0-2); WBC Urine None seen /hpf (0-3)
[2023-10-10 10:13] LABS: INR 4.4; Prothrombin Time 43.5 Seconds (9.50-12.10)
[2023-10-10 10:55] LABS: Alanine Aminotransferase 35 U/L (16-63); Albumin Level 3.6 g/dL (3.4-5.0); Alkaline Phosphatase 62 U/L (46-116); Anion Gap 6 mmol/L (8-16); Aspartate Amino Transferase 14 U/L (15-37); Bilirubin,Total 0.6 mg/dL (0.00-1.00); Blood Urea Nitrogen 17 mg/dL (7-18); Calcium 8.9 mg/dL (8.5-10.1); Carbon Dioxide 31 mmol/L (21-32); Chloride 104 mmol/L (98-108); Cholesterol 183 mg/dL (0-200); Estimated Glomerular Filt Rate > 60; Glucose 104 mg/dL (70-99); HDL Direct 63 mg/dL (40-60); LDL Cholesterol Calculated 109 mg/dL (<130); Osmolality Calculated 293 mOsm/kg (285-295); Potassium 4.6 mmol/L (3.5-5.1); Sodium 141 mmol/L (136-145); Total Protein 6.7 g/dL (6.4-8.2); Triglycerides 57 mg/dL (0-150)
[2023-10-13 12:48] LABS: Creatine Kinase 131 U/L (39-308)
[2023-10-16 15:43] LABS: Vitamin D 25 Hydroxy 21 ng/mL (30-100)
== END 2023-10-10 09:34 | disposition home or self-care (01) ==
LOC: CHSLAB 09:35
PROVIDERS: PCP Internal Medicine; Visit Provider Internal Medicine
DX: E78.2 Mixed hyperlipidemia (principal); I10 Essential (primary) hypertension; D68.69 Other thrombophilia; Z79.01 Long term (current) use of anticoagulants; E11.65 Type 2 diabetes mellitus with hyperglycemia; N39.0 Urinary tract infection, site not specified; E55.9 Vitamin D deficiency, unspecified
CPT/HCPCS: 36415; 80053; 80061; 81001; 82306; 82550; 83036; 85025; 85610

== ENCOUNTER 2023-11-04 11:08 | Emergency (ER) | payer MEDICARE, SELFPAY ==
[2023-11-04] VITALS (13 sets, daily range): BP systolic 118–157; BP diastolic 67–98; PULSE 90–111; RESP 15–31; TEMP 36.6; O2SAT 91–100
--- NOTE | 2023-11-04 11:26 | ED.GENADULT ---
HPI - General Adult General Chief complaint: Nausea/Vomiting/Diarrhea Stated complaint: nausea, vomiting, congestion Time Seen by Provider: 11/04/23 11:16 History of Present Illness HPI narrative: Velasquez is a 73M with a PMH of AYAKA, BPH, factor V Leiden, h/o PE and daily Cannibis use that presented to the ED with dry heaves. He was feeling completely fine until he woke up this morning and has frequent dry heaves but has not thrown anything up. There is no fevers, chills, diarrhea, dyspnea or chest pain. Related Data Home Medications Medication Instructions Recorded Confirmed cholecalciferol (vitamin D3) 75 75 mcg PO QAM 08/11/20 11/04/23 mcg (3,000 unit) tablet lovastatin 40 mg tablet 40 mg PO QAM 08/11/20 11/04/23 warfarin 4 mg tablet (Jantoven) 4 mg PO QAM 08/11/20 11/04/23 mirabegron 50 mg tablet,extended 50 mg PO DAILY 11/04/23 11/04/23 release 24 hr (Myrbetriq) Allergies Allergy/AdvReac Type Severity Reaction Status Date / Time No Known Allergies Allergy Unknown Verified 11/04/23 11:22 Review of Systems Review of Systems: All systems reviewed & are unremarkable except as noted in HPI and below PMFSH Past Medical History Medical History Arthritis BPH (benign prostatic hyperplasia) Factor V Leiden History of blood clots History of high blood pressure History of high cholesterol AYAKA on CPAP Pulmonary embolism Surgical History Surgical History H/O umbilical hernia repair approx 2014 Dr. Angeles H/O ventral hernia repair 12/17/20 Laparoscopic repair incisional hernia with 15 x 20 cm Symbotex mesh History of cystoscopy 2014, OA Dr. Langley History of left hip replacement 2014 History of prostate biopsy 2009, OA Dr. White Status post partial colectomy 10/2019: partial right colectomy for dyplastic polyp, [place] Family History Family History Father , age 80 Family history of cardiovascular disease Acute myocardial infarction Sibling , age 63 Family history of cardiovascular disease Acute myocardial infarction Mother , age 78 Family history of lung cancer Diabetes mellitus Social History Social History Smoking status: Never smoker Alcohol intake: current Drinks per week: 14 Alcohol use details: Rum Substance use: current Substance use type: marijuana Other substance usage details: Daily Last use: 12/16/20 Living arrangements: with family 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 Gender identity (if verbalized by the patient): Male Spiritual care concerns: No Exam Const: General: cooperative, healthy appearing, comfortable, no acute distress, well developed, alert, awake and Physically active Orientation/consciousness: oriented to person, oriented to place and oriented to time HENMT: Head: normal to inspection, normocephalic and atraumatic Ears: hearing grossly normal bilaterally and external ears normal Face/Nose/Sinus: Normal external nose present Eyes: General: appearance normal, both eyes and all related structures Periorbital: periorbital findings normal Sclera: sclerae normal Pupils: Equal, round and reactive pupils present Neck: Neck: normal visual inspection Chest: Chest palpation & inspection: normal inspection of the chest Resp: Effort & Inspection: normal respiratory effort, able to speak in complete sentences and no respiratory distress Auscultation: clear to auscultation bilaterally Cardio: Jugular venous distension: no JVD Rate: regular rate Rhythm: regular rhythm GI: Inspection: normal to inspection GI Palp: Yes Soft to palpation Auscultation: normal bowel sounds Other: Mark was dry heaving during the exam Skin: General skin ex
[2023-11-04 11:40] LABS: Basophils Absolute Auto 0.02 K/mm3 (0.00-0.10); Basophils Percent Auto 0.1 % (0.0-1.0); Eosinophils Absolute Auto 0.03 K/mm3 (0.02-0.50); Eosinophils Percent Auto 0.2 % (1.0-6.0); Hematocrit 48.7 % (37.0-46.0); Immature Granulocyte Absolute 0.05 K/mm3 (0.00-0.00); Immature Granulocyte Percent A 0.4 % (0.0-0.0); Lymphocytes Absolute Auto 1.61 K/mm3 (1.10-4.50); Lymphocytes Percent Auto 11.8 % (18.0-42.0); Mean Corpuscular HGB Conc 32.9 g/dL (32.0-36.0); Mean Corpuscular Hemoglobin 31.4 pg (27.0-31.0); Mean Corpuscular Volume 95.5 fL (78.0-102.0); Mean Platelet Volume 10.1 fl (8.7-11.0); Monocytes Absolute Auto 0.63 K/mm3 (0.10-0.90); Monocytes Percent Auto 4.6 % (2.0-11.0); Neutrophils Absolute Auto 11.3 K/mm3 (1.7-7.2); Neutrophils Percent Auto 82.9 % (50.0-70.0); Platelet Count Result 209 K/mm3 (150-420); Red Cell Distribution Width 13.2 % (11.6-14.4); White Blood Count 13.7 K/mm3 (4.8-10.8)
[2023-11-04] MEDS: ONDANSETRON HCL ODT 4 MG TABLET PO (11:47)
[2023-11-04] MEDS: diphenhydrAMINE HCl INJ 50 MG/ML VIAL IV PUSH (11:51)
[2023-11-04] MEDS: SODIUM CHLORIDE 0.9% IV 1,000 ML 999 ML IV CONT (11:52)
[2023-11-04 12:03] LABS: Alanine Aminotransferase 34 U/L (16-63); Alkaline Phosphatase 61 U/L (46-116); Anion Gap 11 mmol/L (8-16); Aspartate Amino Transferase 19 U/L (15-37); Bilirubin,Total 0.7 mg/dL (0.00-1.00); Blood Urea Nitrogen 26 mg/dL (7-18); Carbon Dioxide 25 mmol/L (21-32); Chloride 102 mmol/L (98-108); Estimated CRCL calculation 46 ml/min; Estimated Glomerular Filt Rate 54; Glucose 158 mg/dL (70-99); Lipase 24 U/L (16-77); Osmolality Calculated 293 mOsm/kg (285-295); Potassium 3.7 mmol/L (3.5-5.1); Sodium 138 mmol/L (136-145); Total Protein 7.3 g/dL (6.4-8.2)
[2023-11-04 12:15] LABS: SARS-CoV-2 RNA PCR Negative (Negative)
[2023-11-04 12:22] LABS: Influenza A QL RT-PCR Negative (Negative); Influenza B QL RT-PCR Negative (Negative); RSV RNA, RT-PCR Negative (Negative)
--- NOTE | 2023-11-04 12:45 | PC.NURSE ---
PT IS EATING JELLO AT THIS TIME. NO EMESIS NOTED THUS FAR IN ED VISIT. WILL CONTINUE TO MONITOR.
--- NOTE | 2023-11-04 12:53 | PC.NURSE ---
PT REPORTS HE IS FEELING MUCH BETTER. PT HAS TAKEN A NAP AND EATEN JELLO. AT BEDSIDE. NAD NOTED. WILL CONTINUE TO MONITOR.
== END 2023-11-04 13:12 | disposition home or self-care (01) ==
PROVIDERS: Emergency Provider Family Medicine; PCP Internal Medicine
DX: R11.2 Nausea with vomiting, unspecified (principal); Z79.899 Other long term (current) drug therapy; Z79.01 Long term (current) use of anticoagulants; Z20.822 Contact with and (suspected) exposure to COVID-19
CPT/HCPCS: 36415; 80053; 83690; 85025; 87637; 96361; 96374; 99284; A9270; J1200; J7030

== ENCOUNTER 2023-11-09 15:17 | Outpatient (CLI) | payer MEDICARE, SELFPAY ==
[2023-11-09 15:29] LABS: Bilirubin Urine Negative (Negative); Blood Urine 3+ (Negative); Glucose Urine UA Negative (Negative); Ketones Urine Negative (Negative); Leukocyte Esterase Ur Negative (Negative); Nitrate Urine Negative (Negative); Protein Urine 1+ (Negative); Specific Grav Ur >= 1.030 (1.010-1.020); Urobilinogen Urine 0.2 mg/dL (0.2-1.0)
[2023-11-09 15:33] LABS: Add Urine Microscopic? YES; Appearance Urine Slightly Cloudy (Clear); Color Urine Light Amber (Yellow); RBC Urine 51-75 /hpf (0-2)
[2023-11-09 15:34] LABS: Bacteria Urine Trace /hpf; WBC Urine None seen /hpf (0-3)
== END 2023-11-09 15:18 | disposition home or self-care (01) ==
LOC: CHSLAB 15:19
PROVIDERS: PCP Internal Medicine; Visit Provider Internal Medicine
DX: R31.9 Hematuria, unspecified (principal)
CPT/HCPCS: 81001; 87086; 87088

== ENCOUNTER 2023-11-28 08:03 | Outpatient (CLI) | payer MEDICARE, SELFPAY ==
--- NOTE | ~2023-11-28 | CT_ITS ---
CT of the Abdomen and Pelvis: Indication: Hematuria Technique: 2.5 mm axial scans were obtained through the abdomen and pelvis prior to and following in travenous administration of 130 cc of Omnipaque 350. Dose reduction technique was used on this scan b y utilizing automated exposure control and iterative reconstruction technique. The dose-length produc t (DLP) was 1990.39 mGy-cm. COMPARISON: 12/01/2021 Findings: Scans through the lung bases are unremarkable. The liver, pancreas, adrenal glands are within normal limits. Calcified splenic granulomas are presen t. Calcified gallstone present. Bilateral renal cysts are present. There are nonobstructing left lowe r pole renal stones, largest measuring 7 mm. There is an ovoid, 10 x 6 mm stone in the proximal left ureter, but no definite left hydronephrosis. There are atherosclerotic calcifications of the aorta. No lymphadenopathy. No bowel obstruction or bowel wall thickening. There is no evidence to suggest acute appendicitis. Images through the pelvis are degraded by streak artifact from left hip arthroplasty. Urinary bladder unremarkable. No pelvic mass evident. Prostate gland is enlarged. Bilateral fat-containing hernias a re present. Impression: 10 x 6 mm stone in the proximal left ureter. No distinct hydronephrosis. Additional nonobstructing left lower pole renal stones. Cholelithiasis. Enlarged prostate gland. Bilateral fat-containing inguinal hernias. Reviewed, dictated and finalized at [facility]. [facility] Impression: 10 x 6 mm stone in the proximal left ureter. No distinct hydronephrosis. Additional nonobstructing left lower pole renal stones. Cholelithiasis. Enlarged prostate gland. Bilateral fat-containing inguinal hernias.
[2023-11-28 09:32] LABS: INR 4.1; Prothrombin Time 40.5 Seconds (9.50-12.10)
== END 2023-11-28 08:04 | disposition home or self-care (01) ==
LOC: CHSIMG 08:07
PROVIDERS: PCP Internal Medicine
DX: R31.0 Gross hematuria (principal); Z79.01 Long term (current) use of anticoagulants; N20.1 Calculus of ureter; N20.0 Calculus of kidney; N40.0 Benign prostatic hyperplasia without lower urinary tract symptoms; K40.20 Bilateral inguinal hernia, without obstruction or gangrene, not specified as recurrent
CPT/HCPCS: 36415; 74178; 85610; Q9967

== ENCOUNTER 2023-12-05 09:51 | Outpatient (RCR) | payer MEDICARE, SELFPAY ==
[2023-09-08 12:27] LABS: INR 2.6; Prothrombin Time 26.3 Seconds (9.50-12.10)
[2023-10-17 12:07] LABS: INR 3.9; Prothrombin Time 39.2 Seconds (9.50-12.10)
[2023-12-05 10:24] LABS: Prothrombin Time 49.2 Seconds (9.50-12.10)
== END 2023-12-07 23:59 | disposition home or self-care (01) ==
LOC: CHSLAB 09:51
PROVIDERS: PCP Internal Medicine; Visit Provider Internal Medicine
DX: Z51.81 Encounter for therapeutic drug level monitoring (principal); Z79.01 Long term (current) use of anticoagulants
CPT/HCPCS: 36415; 85610

== ENCOUNTER 2023-12-09 10:49 | Outpatient (CLI) | payer MEDICARE, SELFPAY ==
--- NOTE | ~2023-12-09 | XR_ITS ---
EXAMINATION: XR abdomen/kub 1V INDICATION: Gross hematuria, known stone TECHNIQUE: Supine views of the abdomen were obtained on three radiographs. COMPARISON: 12/01/[address] from 11/28/2023 FINDINGS: A 12 mm stone persists in the proximal left ureter. There are stones measuring 6 mm and 3 m m in the left kidney lower pole. Punctate left upper quadrant calcifications are consistent with old granulomatous disease of the spleen. A gallstone is noted. The bowel gas pattern is normal. There are changes of left total hip arthroplasty. There is moderate lumbar spondylosis. IMPRESSION: 1. 12 mm stone of the proximal left ureter without significant change. 2. Left nephrolithiasis. Reviewed, dictated and finalized at location F. 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
== END 2023-12-09 10:50 | disposition home or self-care (01) ==
LOC: CHSLAB 10:54
PROVIDERS: PCP Internal Medicine
DX: N20.1 Calculus of ureter (principal); N20.0 Calculus of kidney; R31.0 Gross hematuria
CPT/HCPCS: 74018; 87086

== ENCOUNTER 2023-12-27 08:52 | Outpatient (CLI) | payer MEDICARE, SELFPAY ==
--- NOTE | 2023-12-27 09:21 | ECG_ITS ---
Measurements Intervals Sp[place]y Rate: 76 P: 24 OH: 160 QRS: 38 QRSD: 106 T: -4 QT: 366 QTc: 412 Interpretive Statements SINUS RHYTHM INCOMPLETE RIGHT BUNDLE BRANCH BLOCK COMPARED TO ECG 09/11/2020 11:31:55 NO SIGNIFICANT CHANGES Electronically Signed On 12-27-2023 15:16:42 CENTRIFUGAL CASTING MACHINE OPERATOR by Artemio Velez M.D.
[2023-12-27 10:50] LABS: INR 1.9; Partial Thromboplastin Time 30.4 SEC (23.90-30.70); Prothrombin Time 19.9 Seconds (9.50-12.10)
== END 2023-12-27 08:53 | disposition home or self-care (01) ==
PROVIDERS: PCP Internal Medicine; Visit Provider Urology
DX: Z01.818 Encounter for other preprocedural examination (principal); Z86.79 Personal history of other diseases of the circulatory system; N20.1 Calculus of ureter; I45.19 Other right bundle-branch block
CPT/HCPCS: 36415; 85610; 85730; 87086; 93005

== ENCOUNTER 2024-01-06 01:32 | Day surgery (SDC) | payer MEDICARE, SELFPAY ==
[2023-12-26 14:08] VITALS: BMI 27.8
--- NOTE | 2023-12-26 14:36 | PC.NURSE ---
Report to the Outpatient Waiting Room, entrance under the green pavilion located off [facility], at time __6:00AM on date __01/06/24 . Planned Procedure Time: __7:30AM . Time changes happen often and if your time is changed the preop area will call you the afternoon before. - You and your visitor will be asked to self-screen and do not enter if you have any COVID symptoms. - A mask is optional within the hospital at this time. Patients may have clear liquids (water, carbonated beverages, clear teas, apple juice) until 3 hours prior to surgery with a maximum of 20 ounces. - No food from midnight until time of surgery. Take the following medications with a SIP of water the morning of surgery: NONE DO NOT STOP ANY OF YOUR OTHER PRESCRIPTION MEDICATIONS PRIOR TO SURGERY ?EXCEPT THE FOLLOWING Medications to discontinue per physician __HOLD COUMADIN 7 DAYS PRE-OP PER DR MACKEY/GILDA- LAST DOSE 12/29/23 HOLD ALL VITAMINS/SUPPLEMENTS 3 DAYS PRE-OP PER ANESTHESIA- LAST DOSE 01/02/24. Please no make-up, nail norwegian, hairspray, perfume, deodorant, or body powder the day of surgery. No jewelry (including any body piercings) or valuables the day of surgery, leave them at home. Please take a shower or bath the night before, or the morning of, surgery with an antibacterial soap. Wear comfortable, loose fitting clothing. - Jewelry must be removed prior to entering the operating room. Rings and piercings that are not removed may be cut off. - The hospital will not accept responsibility for valuables. - Please leave all valuables, including medications, at home the day of surgery. If you are going home after surgery, a licensed regional company flatbed truck driver must drive you home. - NO public transportation without another adult if you receive anesthesia. - We recommend that an adult stay with you for 24 hours following discharge. - We also recommend that you do not drive, make important decision, drink alcoholic beverages, or take any drugs that were not prescribed by your health care provider for at least 24 hours after your discharge time. Follow any additional instructions given to you from your surgeon. If you or anyone in your household have experienced Covid symptoms in the past week, please notify your surgeon or the nurse liaison at the phone number below for possible testing. Telephone instructions given to ____PATIENT and asked if any additional questions and then verbalized understanding. Patient advised to call surgeon office or pre surgery nurse liaison [phone] if any additional questions.
[2024-01-06] VITALS (7 sets, daily range): BP systolic 136–165; BP diastolic 72–99; PULSE 76–84; RESP 13–24; TEMP 36.2–36.4; O2SAT 99–100; BMI 28.3
--- NOTE | ~2024-01-06 | XR_ITS ---
Supine and upright views of the abdomen Clinical history: Lithotripsy COMPARISON: 12/09/2023 Findings: Bowel gas pattern is nonspecific. No evidence for obstruction or free air. Stable 1.5 cm pr obable mid left ureteral stone. Left lower pole renal stones are unchanged. Left hip arthroplasty unc hanged. Impression: Stable 1.5 cm probable mid left ureteral stone. Stable left lower pole renal stones. Reviewed, dictated and finalized at location . ER Impression: Stable 1.5 cm probable mid left ureteral stone. Stable left lower pole renal stones.
[2024-01-06 06:56] LABS: Prothrombin Time 13.6 Seconds (11.1-14.7)
[2024-01-06 06:57] LABS: Partial Thromboplastin Time 26.4 SECONDS (22.3-36.8)
--- NOTE | 2024-01-06 07:12 | WPDANESEPPF ---
Anes - Initial Pre Proc Eval Procedure: Operation Date: 01/06/24 07:30 Proposed Procedures p Left Extracorporeal Shock Wave Lithotripsy - Jayjay White MD s Possible Cystoscopy, Left Ureteroscopy, Left Retrograde Pyelogram, Left Stone Extraction with Holmium Laser, Left Stent Placement - Jayjay White MD Date/Time: 01/06/24 07:12 Surgeon: Jayjay White MD Pre Op Diagnosis: Lt Ureteral Kidney Stones Patient Data Age: 73 Gender: M Height: 1.78 m Weight: 89.4 kg Last Vital Signs Temp 36.4 C L 01/06/24 06:51 Pulse 80 01/06/24 06:51 Resp 14 01/06/24 06:51 BP 154/91 H 01/06/24 06:51 Pulse Ox 100 01/06/24 06:51 Allergies Allergy/AdvReac Type Severity Reaction Status Date / Time No Known Allergies Allergy Unknown Verified 01/06/24 06:14 Home Medications Medication Instructions Recorded Confirmed Type lovastatin 40 mg tablet 40 mg PO QAM 08/11/20 01/06/24 History warfarin 4 mg tablet (Jantoven) 2 mg PO QAM 08/11/20 01/06/24 History mirabegron 50 mg tablet,extended 50 mg PO DAILY 11/04/23 01/06/24 History release 24 hr (Myrbetriq) ondansetron 4 mg disintegrating 4 mg PO Q8H PRN nausea and 11/04/23 01/06/24 Rx tablet vomiting #10 tabs cholecalciferol (vitamin D3) 25 25 mcg PO DAILY 12/09/23 01/06/24 History mcg (1,000 unit) tablet (Vitamin D3) folic acid 1 mg tablet 1 mg PO DAILY 12/09/23 01/06/24 History warfarin 1 mg tablet 1 mg PO DAILY 12/09/23 01/06/24 History Laboratory Tests 01/06/24 06:26 PT 13.6 Seconds (11.1-14.7) INR 1.0 APTT 26.4 SECONDS (22.3-36.8) Patient hx anesthesia problems: none Family hx anesthesia problems: none Results Review: All pre-operative results and documents have been reviewed as part of the pre-operative evaluation. [facility] Past Medical History Medical History Arthritis BPH (benign prostatic hyperplasia) Factor V Leiden History of blood clots History of high blood pressure History of high cholesterol AYAKA on CPAP Pulmonary embolism Surgical History Surgical History H/O umbilical hernia repair approx 2014 Dr. Angeles H/O ventral hernia repair 12/17/20 Laparoscopic repair incisional hernia with 15 x 20 cm Symbotex mesh History of cystoscopy 2014, OA Dr. Langley History of left hip replacement 2015 History of prostate biopsy 2009, OA Dr. White Status post partial colectomy 10/2019: partial right colectomy for dyplastic polyp, Kay Family History Family History Father , age 80 Family history of cardiovascular disease Acute myocardial infarction Sibling , age 63 Family history of cardiovascular disease Acute myocardial infarction Mother , age 78 Family history of lung cancer Diabetes mellitus Social History Social History Smoking status: Never smoker Alcohol intake: current Drinks per week: 21 Alcohol use details: 35OZ RUM/WEEK Substance use: current Substance use type: marijuana Other substance usage details: DAILY MARIJUANA USE/SMOKES Last use: 12/16/20 Living arrangements: with family Additional living arrangements comments: 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
[2024-01-06] MEDS: LACTATED RINGERS 1,000 ML 30 ML IV CONT (07:25)
--- NOTE | 2024-01-06 07:28 | PM.IMHP ---
H&P: HPI History of Present Illness Date/Time: 01/06/24 07:28 Chief Complaint: left proximal ureteral calculus Narrative: 73 yr old male with 1.2-1.5 cm proximal left ureteral stone Review of Systems Review of Systems: All systems reviewed & are unremarkable except as noted in HPI and below PMFSH Past Medical History Medical History Arthritis BPH (benign prostatic hyperplasia) Factor V Leiden History of blood clots History of high blood pressure History of high cholesterol AYAKA on CPAP Pulmonary embolism Surgical History Surgical History H/O umbilical hernia repair approx 2014 Dr. Angeles H/O ventral hernia repair 12/17/20 Laparoscopic repair incisional hernia with 15 x 20 cm Symbotex mesh History of cystoscopy 2014, OA Dr. Langley History of left hip replacement 2014 History of prostate biopsy 2009, OA Dr. White Status post partial colectomy 10/2019: partial right colectomy for dyplastic polyp, Kay Family History Family History Father , age 80 Family history of cardiovascular disease Acute myocardial infarction Sibling , age 63 Family history of cardiovascular disease Acute myocardial infarction Mother , age 78 Family history of lung cancer Diabetes mellitus Social History Social History Smoking status: Never smoker Alcohol intake: current Drinks per week: 21 Alcohol use details: 35OZ RUM/WEEK Substance use: current Substance use type: marijuana Other substance usage details: DAILY MARIJUANA USE/SMOKES Last use: 12/16/20 Living arrangements: with family Additional living arrangements comments: 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 Gender identity (if verbalized by the patient): Male Spiritual care concerns: No Meds Home Medications and Allergies Home Medications Medication Instructions Recorded Confirmed Type lovastatin 40 mg tablet 40 mg PO QAM 08/11/20 01/06/24 History warfarin 4 mg tablet (Jantoven) 2 mg PO QAM 08/11/20 01/06/24 History mirabegron 50 mg tablet,extended 50 mg PO DAILY 11/04/23 01/06/24 History release 24 hr (Myrbetriq) ondansetron 4 mg disintegrating 4 mg PO Q8H PRN nausea and 11/04/23 01/06/24 Rx tablet vomiting #10 tabs cholecalciferol (vitamin D3) 25 25 mcg PO DAILY 12/09/23 01/06/24 History mcg (1,000 unit) tablet (Vitamin D3) folic acid 1 mg tablet 1 mg PO DAILY 12/09/23 01/06/24 History warfarin 1 mg tablet 1 mg PO DAILY 12/09/23 01/06/24 History Allergies Allergy/AdvReac Type Severity Reaction Status Date / Time No Known Allergies Allergy Unknown Verified 01/06/24 06:14 Vital Signs Vital Signs - 24 hr 01/06/24 06:51 Temperature 36.4 C L Pulse Rate 80 Respiratory Rate 14 Blood Pressure 154/91 H Pulse Oximetry 100 Exam Const: General: cooperative and comfortable Resp: Effort & Inspection: normal respiratory effort Cardio: Rate: regular rate Rhythm: regular rhythm Assessment and Plan Assessment and plan (1) Left ureteral calculus: Code(s): N20.1 - Calculus of ureter Status: Acute Assessment and Plan: Proceed with left ureteral eswl, possible cysto, left rpg, stent placement
--- NOTE | 2024-01-06 07:30 | WPDHPUPDATE1 ---
History and Physical Update Update Date/Time: 01/06/24 07:30 History and Physical has been reviewed, including an updated exam of the patient. There are NO changes in the patient's condition. Risks, benefits, and alternatives have been discussed and questions answered. Patient agrees to proceed with procedure.
[2024-01-06] MEDS: ceFAZolin 2 GM/D5W 50 ML 2 GM/50 ML BAG IVPB (07:39)
[2024-01-06] MEDS: LIDOCAINE HCL 2% GEL UROJET 10 ML PKG MUCOUS MEM (08:12)
--- NOTE | 2024-01-06 08:42 | P.OP_ITS ---
Procedure Note - Detailed Date of Procedure 01/06/24 Pre-op Diagnosis Lt Ureteral Kidney Stones Post-op Diagnosis Same Procedure Performed Cystoscopy, left ureteral stent placement, left ureteral lithotripsy Surgeon Jayjay White MD Anesthesia General Description of Procedure Patient is taken to the operative suite correctly identified. Once anesthesia was obtained was placed in supine position prepped draped usual sterile fashion. Sixteen Macedonian flexible scope was performed. He does have lateral lobe hypertrophy. The bladder itself was without any evidence of tumors. The left ureteral orifice was cannulated with a wire. I then advanced a 4.8 Macedonian contour stent over the wire with the proximal end coiled in the renal pelvis and the distal in the bladder. 2% viscous lidocaine was inserted into the urethra. Patient was then repositioned and the stone was localized in both planes. Three thousand shocks were given the stone. There appeared to be fairly good fragmentation. Patient is taken recovery stable condition. He will follow-up in 7-10 days with KUB. This completes dictation. Please send a copy of this op note to my office. Estimated Blood Loss 0 Drains Yes Packing No Pathology None sent Complications No immediate complications Condition Stable Disposition PACU
[2024-01-06] MEDS: fentaNYL CITRATE INJ (*CRX) 100 MCG/2 ML VIAL 25 MCG IV PUSH (08:50)
== END 2024-01-06 10:17 | disposition home or self-care (01) ==
PROVIDERS: PCP Internal Medicine; Visit Provider Urology
PROC: (CPT 50590; principal; 2024-01-06 07:30)
PROC: (CPT 52352; 2024-01-06 07:30)
DX: N20.1 Calculus of ureter (principal); D68.51 Activated protein C resistance; G47.33 Obstructive sleep apnea (adult) (pediatric); N40.0 Benign prostatic hyperplasia without lower urinary tract symptoms; E78.00 Pure hypercholesterolemia, unspecified; Z79.01 Long term (current) use of anticoagulants; Z86.711 Personal history of pulmonary embolism; Z86.718 Personal history of other venous thrombosis and embolism; F12.90 Cannabis use, unspecified, uncomplicated
CPT/HCPCS: 50590; 52332; 36415; 74018; 85610; 85730; C1758; C1769; C2617; J0690; J2704; J3010; J7120; Q9966

== ENCOUNTER 2024-01-17 09:06 | Outpatient (CLI) | payer MEDICARE, SELFPAY ==
--- NOTE | ~2024-01-17 | XR_ITS ---
EXAMINATION: XR abdomen/kub 1V DATE: 01/17/2024 09:49 INDICATION: Calculus of ureter status post lithotripsy. TECHNIQUE: A supine view of the abdomen on 2 radiographs was obtained. COMPARISON: Abdomen radiographs 01/06/2024, CT abdomen and pelvis 11/28/2023 FINDINGS: There are no dilated loops of bowel. There is a left internal ureteral stent in expected po sition. There are approximately 3 stones in distal left ureter measuring up to 6 mm. There is a 7 mm stone in left kidney inferior pole. Calcifications in the spleen are consistent with old granulomatou s disease. IMPRESSION: 1. Stones in left kidney and distal left ureter with left internal ureteral stent in expected positio n. Reviewed, dictated and finalized at location A. IMPRESSION: 1. Stones in left kidney and distal left ureter with left internal ureteral gómez nt in expected position.
[2024-01-17 09:46] LABS: INR 1.2; Prothrombin Time 12.5 Seconds (9.50-12.10)
== END 2024-01-17 09:07 | disposition home or self-care (01) ==
PROVIDERS: PCP Internal Medicine; Visit Provider Urology
DX: N20.1 Calculus of ureter (principal); Z79.01 Long term (current) use of anticoagulants; N20.0 Calculus of kidney; Z96.0 Presence of urogenital implants
CPT/HCPCS: 36415; 74018; 85610

== ENCOUNTER 2024-02-06 15:03 | Outpatient (CLI) | payer MEDICARE, SELFPAY ==
--- NOTE | ~2024-02-06 | XR_ITS ---
Supine and upright views of the abdomen Clinical history: Left ureteral stone COMPARISON: 01/17/2024 Findings: Bowel gas pattern is nonspecific. No evidence for obstruction or free air. Left ureteral st ent in place. Stable left lower pole renal stone. Possible 3 mm distal left ureteral stone. Calcified splenic granulomas again noted. Osseous structures are intact, aside from left hip arthroplasty. Impression: Left ureteral stent with possible 3 mm distal left ureteral stone. Stable left lower pole renal stone . Reviewed, dictated and finalized at [facility]. Impression: Left ureteral stent with possible 3 mm distal left ureteral stone. Stable left lower pole renal stone.
== END 2024-02-06 15:04 | disposition home or self-care (01) ==
LOC: CHSIMG 15:05
PROVIDERS: PCP Internal Medicine; Visit Provider Urology
DX: N20.1 Calculus of ureter (principal); Z96.0 Presence of urogenital implants; N20.0 Calculus of kidney
CPT/HCPCS: 74018

== ENCOUNTER 2024-02-17 11:52 | Outpatient (CLI) | payer MEDICARE, SELFPAY ==
[2024-02-17 13:30] LABS: Prostate Specific Antigen 7.7 ng/mL (< OR = 4.0)
== END 2024-02-17 11:53 | disposition home or self-care (01) ==
LOC: CHSLAB 11:55
PROVIDERS: PCP Internal Medicine; Visit Provider Urology
DX: R97.20 Elevated prostate specific antigen [PSA] (principal)
CPT/HCPCS: 36415; 84153

== ENCOUNTER 2024-03-12 09:40 | Outpatient (RCR) | payer MEDICARE, SELFPAY ==
[2023-12-15 15:22] LABS: INR 1.9; Prothrombin Time 19.8 Seconds (9.50-12.10)
[2023-12-22 10:31] LABS: INR 2.2; Prothrombin Time 23.2 Seconds (9.50-12.10)
[2024-03-02 13:35] LABS: INR 1.4; Prothrombin Time 14.7 Seconds (9.50-12.1)
[2024-03-06 09:50] LABS: INR 1.4; Prothrombin Time 15.3 Seconds (9.50-12.1)
[2024-03-12 10:03] LABS: INR 2.2; Prothrombin Time 22.6 Seconds (9.50-12.1)
== END 2024-03-14 23:59 | disposition home or self-care (01) ==
LOC: CHSLAB 09:40
PROVIDERS: PCP Internal Medicine; Visit Provider Internal Medicine
DX: Z51.81 Encounter for therapeutic drug level monitoring (principal); Z79.01 Long term (current) use of anticoagulants
CPT/HCPCS: 36415; 85610

== ENCOUNTER 2024-04-13 08:48 | Outpatient (CLI) | payer MEDICARE, SELFPAY ==
[2024-04-13 09:49] LABS: Basophils Absolute Auto 0.01 K/mm3 (0.00-0.10); Basophils Percent Auto 0.2 % (0.0-1.0); Eosinophils Absolute Auto 0.11 K/mm3 (0.02-0.50); Eosinophils Percent Auto 2.4 % (1.0-6.0); Hematocrit 47.8 % (37.0-46.0); Hemoglobin 15.3 g/dL (12.4-15.3); Immature Granulocyte Absolute 0.03 K/mm3 (0.00-0.00); Immature Granulocyte Percent A 0.7 % (0.0-0.0); Lymphocytes Absolute Auto 0.99 K/mm3 (1.10-4.50); Lymphocytes Percent Auto 21.8 % (18.0-42.0); Mean Corpuscular Hemoglobin 30.5 pg (27.0-31.0); Mean Corpuscular Volume 95.2 fL (78.0-102.0); Mean Platelet Volume 10.6 fl (8.7-11.0); Monocytes Absolute Auto 0.44 K/mm3 (0.10-0.90); Monocytes Percent Auto 9.7 % (2.0-11.0); Neutrophils Absolute Auto 2.97 K/mm3 (1.70-7.20); Neutrophils Percent Auto 65.2 % (50.0-70.0); Platelet Count Result 199 K/mm3 (150-420); Red Blood Count 5.02 M/mm3 (4.70-6.10); Red Cell Distribution Width 13.3 % (11.6-14.4); White Blood Count 4.6 K/mm3 (4.8-10.8)
[2024-04-13 09:50] LABS: Appearance Urine Clear (Clear); Bilirubin Urine Negative (Negative); Blood Urine Negative (Negative); Color Urine Yellow (Yellow); Glucose Urine UA Negative (Negative); Ketones Urine Negative (Negative); Leukocyte Esterase Ur Negative LEU/UL (Negative); Nitrate Urine Negative (Negative); Protein Urine Negative (Negative); Specific Grav Ur 1.015 (1.010-1.020); Urobilinogen Urine 0.2 mg/dL (0.2-1.0)
[2024-04-13 09:57] LABS: Hemoglobin A1C 5.8 % (<5.7)
[2024-04-13 10:02] LABS: INR 2.6; Prothrombin Time 26.4 Seconds (9.50-12.1)
[2024-04-13 10:07] LABS: Add Urine Microscopic? NO
[2024-04-13 10:18] LABS: Alanine Aminotransferase 31 U/L (16-63); Albumin Level 3.8 g/dL (3.4-5.0); Alkaline Phosphatase 66 U/L (46-116); Anion Gap 10 mmol/L (4-12); Aspartate Amino Transferase 21 U/L (15-37); Bilirubin,Total 0.9 mg/dL (0.00-1.00); Blood Urea Nitrogen 18 mg/dL (7-18); Carbon Dioxide 28 mmol/L (21-32); Chloride 106 mmol/L (98-108); Cholesterol 169 mg/dL (0-200); Creatine Kinase 214 U/L (39-308); Estimated Glomerular Filt Rate > 60; Glucose 99 mg/dL (70-99); HDL Direct 57 mg/dL (40-60); LDL Cholesterol Calculated 95 mg/dL (<130); Osmolality Calculated 299 mOsm/kg (285-295); Potassium 4.6 mmol/L (3.5-5.1); Sodium 144 mmol/L (136-145); Total Protein 6.7 g/dL (6.4-8.2); Triglycerides 85 mg/dL (0-150)
[2024-04-13 11:23] LABS: Prostate Specific Antigen 6.2 ng/mL (< OR = 4.0)
[2024-04-15 05:18] LABS: Vitamin D 25 Hydroxy 26 ng/mL (30-100)
== END 2024-04-13 08:49 | disposition home or self-care (01) ==
LOC: CHSLAB 08:53
PROVIDERS: PCP Internal Medicine; Visit Provider Urology
DX: R97.20 Elevated prostate specific antigen [PSA] (principal); I10 Essential (primary) hypertension; E78.2 Mixed hyperlipidemia; R31.29 Other microscopic hematuria; D68.69 Other thrombophilia; E55.9 Vitamin D deficiency, unspecified; N39.0 Urinary tract infection, site not specified; Z79.01 Long term (current) use of anticoagulants; R73.01 Impaired fasting glucose
CPT/HCPCS: 36415; 80053; 80061; 81003; 82306; 82550; 83036; 84153; 85025; 85610

== ENCOUNTER 2024-05-18 13:37 | Outpatient (RCR) | payer MEDICARE, SELFPAY ==
[2024-05-18 14:06] LABS: INR 1.9; Prothrombin Time 19.8 Seconds (9.50-12.1)
== END 2024-08-16 23:59 | disposition home or self-care (01) ==
LOC: CHSLAB 13:37
PROVIDERS: PCP Internal Medicine; Visit Provider Internal Medicine
DX: Z51.81 Encounter for therapeutic drug level monitoring (principal); Z79.01 Long term (current) use of anticoagulants
CPT/HCPCS: 36415; 85610

== ENCOUNTER 2024-06-05 08:55 | Outpatient (CLI) | payer MEDICARE, SELFPAY | END 2024-06-05 08:56 | disposition home or self-care (01) | LOC: CHSLAB 08:57 | PROVIDERS: PCP Internal Medicine; Visit Provider Specialist | DX: C44.329 Squamous cell carcinoma of skin of other parts of face (principal) | CPT/HCPCS: 88305 ==

== ENCOUNTER 2024-07-10 07:00 | Outpatient (NON) | payer MEDICARE, SELFPAY | END 2024-07-11 08:00 | disposition home or self-care (01) | PROVIDERS: PCP Internal Medicine; Visit Provider Internal Medicine Gastroenterology | DX: Z86.010 Personal history of colon polyps (principal) | CPT/HCPCS: 88305 ==

== ENCOUNTER 2024-07-10 07:38 | Day surgery (SDC) | payer MEDICARE, SELFPAY ==
[2024-06-27 10:37] VITALS: BMI 28.3
[2024-06-28 13:20] VITALS: BMI 28.8
--- NOTE | 2024-07-10 07:08 | WPDANESEPPF ---
Anes - Initial Pre Proc Eval Procedure: Operation Date: 07/10/24 09:30 Proposed Procedures p Diagnostic Colonoscopy - Zia Watts MD Date/Time: 07/10/24 07:08 Surgeon: Zia Watts MD Pre Op Diagnosis: History of Colon Polyps Patient Data Age: 73 Gender: M Height: 1.78 m Weight: 91 kg Allergies Allergy/AdvReac Type Severity Reaction Status Date / Time No Known Allergies Allergy Unknown Verified 07/10/24 08:30 Home Medications Medication Instructions Recorded Confirmed Type lovastatin 40 mg tablet 40 mg PO QAM 08/11/20 07/10/24 History warfarin 4 mg tablet (Jantoven) 2 mg PO QAM 08/11/20 07/10/24 History mirabegron 50 mg tablet,extended 50 mg PO DAILY 11/04/23 07/10/24 History release 24 hr (Myrbetriq) cholecalciferol (vitamin D3) 25 25 mcg PO DAILY 12/09/23 07/10/24 History mcg (1,000 unit) tablet (Vitamin D3) folic acid 1 mg tablet 1 mg PO DAILY 12/09/23 07/10/24 History Allergy Relief (loratadine) 10 mg PO DAILY 06/28/24 07/10/24 History Patient hx anesthesia problems: none Family hx anesthesia problems: none Results Review: All pre-operative results and documents have been reviewed as part of the pre-operative evaluation. [facility] Past Medical History Medical History Arthritis BPH (benign prostatic hyperplasia) Factor V Leiden History of blood clots History of high blood pressure History of high cholesterol AYAKA on CPAP Pulmonary embolism Surgical History Surgical History H/O umbilical hernia repair approx 2014 Dr. Angeles H/O ventral hernia repair 12/17/20 Laparoscopic repair incisional hernia with 15 x 20 cm Symbotex mesh History of cystoscopy 2014, OA Dr. Langley History of left hip replacement 2014 History of prostate biopsy 2009, OA Dr. White Status post partial colectomy 10/2019: partial right colectomy for dyplastic polyp, Kay Family History Family History Father , age 80 Family history of cardiovascular disease Acute myocardial infarction Sibling , age 63 Family history of cardiovascular disease Acute myocardial infarction Mother , age 78 Family history of lung cancer Diabetes mellitus Social History Social History Smoking status: Never smoker Tobacco type: e-cigarettes/vaping Additional smoking assessment comments: smokes or vapes marijuana Alcohol intake: current Drinks per week: 7 Alcohol use details: 5oz rum/day Substance use: current Substance use type: marijuana Other substance usage details: Daily Last use: 06-27-24 Living arrangements: with family Additional living arrangements comments: 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 Informed Consent: The patient's anesthetic plan and its attendant risks and benefits were discussed with the patient/family/POA. Questions were solicited and answers provided to the satisfaction of the patient/family/POA.
[2024-07-10 08:32] VITALS: BP 153/98; PULSE 84; RESP 16; TEMP 36.7; O2SAT 98
[2024-07-10] MEDS: LACTATED RINGERS 1,000 ML 150 ML IV CONT (08:36)
--- NOTE | 2024-07-10 09:23 | PM.HPGS ---
History of Present Illness History of Present Illness Consent: Risks, benefits, and alternatives have been discussed and questions answered. Patient agrees to proceed with procedure. Chief complaint: History of Colon Polyps Narrative: Mark Chatman is a 73 year old male presents for colonoscopy. Patient has a prior history of colon polyps. He did receive partial colectomy to for resection of 1 polyp in the past. Stools and some tendency towards constipation. Family history noncontributory. No bleeding noted. Review of Systems Review of Systems: All systems reviewed & are unremarkable except as noted in HPI and below PMFSH Past Medical History Medical History Arthritis BPH (benign prostatic hyperplasia) Factor V Leiden History of blood clots History of high blood pressure History of high cholesterol AYAKA on CPAP Pulmonary embolism Surgical History Surgical History H/O umbilical hernia repair approx 2014 Dr. Angeles H/O ventral hernia repair 12/17/20 Laparoscopic repair incisional hernia with 15 x 20 cm Symbotex mesh History of cystoscopy 2014, OA Dr. Langley History of left hip replacement 2014 History of prostate biopsy 2009, OA Dr. White Status post partial colectomy 10/2019: partial right colectomy for dyplastic polyp, Eliza Family History Family History Father , age 80 Family history of cardiovascular disease Acute myocardial infarction Sibling , age 63 Family history of cardiovascular disease Acute myocardial infarction Mother , age 78 Family history of lung cancer Diabetes mellitus Social History Social History Smoking status: Never smoker Tobacco type: e-cigarettes/vaping Additional smoking assessment comments: smokes or vapes marijuana Alcohol intake: current Drinks per week: 7 Alcohol use details: 5oz rum/day Substance use: current Substance use type: marijuana Other substance usage details: Daily Last use: 06-27-24 Living arrangements: with family Additional living arrangements comments: 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 Gender identity (if verbalized by the patient): Male Spiritual care concerns: No Meds Home Medications and Allergies Home Medications Medication Instructions Recorded Confirmed Type lovastatin 40 mg tablet 40 mg PO QAM 08/11/20 07/10/24 History warfarin 4 mg tablet (Jantoven) 2 mg PO QAM 08/11/20 07/10/24 History mirabegron 50 mg tablet,extended 50 mg PO DAILY 11/04/23 07/10/24 History release 24 hr (Myrbetriq) cholecalciferol (vitamin D3) 25 25 mcg PO DAILY 12/09/23 07/10/24 History mcg (1,000 unit) tablet (Vitamin D3) folic acid 1 mg tablet 1 mg PO DAILY 12/09/23 07/10/24 History Allergy Relief (loratadine) 10 mg PO DAILY 06/28/24 07/10/24 History Allergies Allergy/AdvReac Type Severity Reaction Status Date / Time No Known Allergies Allergy Unknown Verified 07/10/24 08:30 Vital Signs Vital Signs - 24 hr 07/10/24 08:32 Temperature 98.1 F Pulse Rate 84 Respiratory Rate 16 Blood Pressure 153/98 H Pulse Oximetry 98 Oxygen Delivery Room Air Exam Narrative: Physical exam reveals patient to be alert. Vital signs stable. HEENT exam is unremarkable. Patient is anicteric. Lungs are clear to auscultation and percussion. Heart is without murmur or sounds. Abdomen bowel sounds are present soft nontender with no organomegaly. Digital external rectal exam normal. Assessment and Plan Assessment and plan (1) Personal history of colonic polyps: Code(s): Z86.010 - Personal history of colonic polyps Status: Acute Assessment and Plan: Concepcion
[2024-07-10 10:24] VITALS: BP 127/85; PULSE 81; RESP 16; O2SAT 97
[2024-07-10 10:34] VITALS: BP 125/89; PULSE 84; RESP 20; O2SAT 98
[2024-07-10 10:44] VITALS: BP 146/90; PULSE 81; RESP 20; O2SAT 81
--- NOTE | 2024-07-10 11:22 | WPDANESPN ---
Anes - Prog Note Post-Op Date/Time: 07/10/24 11:22 Cardiovascular status: normal Respiratory status: normal Airway patency: baseline Mental status: baseline Post-Op hydration status: normal Vital Signs: Last Vital Signs Temp 36.7 C 07/10/24 08:32 Pulse 81 07/10/24 10:44 Resp 20 07/10/24 10:44 BP 146/90 H 07/10/24 10:44 Pulse Ox 81 L 07/10/24 10:44 O2 Del Method Room Air 07/10/24 10:44 Pain Score (VAS): 0 I/O: Intake & Output 07/09/24 07/10/24 07/10/24 23:59 07:59 15:59 Intake Total 400 Balance 400 Post-procedural complaints: none Patient Feedback: Patient satisfied with anesthetic care. Other Findings: Patient vital signs back to baseline. Patient denies nausea and vomiting. Patient's pain under control. Patient OK for discharge.
== END 2024-07-10 10:48 | disposition home or self-care (01) ==
PROVIDERS: PCP Internal Medicine; Visit Provider Internal Medicine Gastroenterology
PROC: 0DJD8ZZ Inspection of Lower Intestinal Tract, Via Natural or Artificial Opening Endoscopic (ICD-10-PCS; CPT 45378; principal; 2024-07-10 09:30)
DX: Z86.010 Personal history of colon polyps (principal); D12.4 Benign neoplasm of descending colon; K64.8 Other hemorrhoids; D12.3 Benign neoplasm of transverse colon; K63.89 Other specified diseases of intestine
CPT/HCPCS: 45385; 45380

== ENCOUNTER 2024-08-23 09:32 | Outpatient (RCR) | payer MEDICARE, SELFPAY ==
[2024-08-23 10:03] LABS: INR 3.5; Prothrombin Time 35.1 Seconds (9.50-12.1)
== END 2024-11-21 23:59 | disposition home or self-care (01) ==
LOC: CHSLAB 09:32
PROVIDERS: PCP Internal Medicine; Visit Provider Internal Medicine
DX: Z51.81 Encounter for therapeutic drug level monitoring (principal); Z79.01 Long term (current) use of anticoagulants
CPT/HCPCS: 36415; 85610

== ENCOUNTER 2024-12-17 09:26 | Outpatient (CLI) | payer MEDICARE, SELFPAY ==
--- OUTSIDE RECORDS SUMMARY | 2024-12-17 09:56 | XMS_ITS | Clinical Summary ---
Author Organization [facility] Address [address] [place] [address] Care Team Providers Care Or Assistant Name Role Phone Boo Sheth MD Primary Care Provider [phone] Source Comments [facility],non-owned Affiliates and Associated Physician Practices is amultiple site organization consisting of ambulatory clinics and hospital sitesin [place], [place], [place]. This disclosure is being madepursuant to the Care Everywhere program and may not contain all information available regarding this patient. Last updated 18.[facility] Allergies No known active allergies Medications * Be aware that medications may not be up to date on this document. Alwaysverify current medications with the patient. Medication Sig Dispensed Refills Start Date End Date Status lovastatin (MEVACOR) 40 MG tablet Take 40 mg by mouth at bedtime. Active folic acid (FOLVITE) 1 MG tablet Take 1 mg by mouth once daily. Active warfarin (COUMADIN) 4 MG tablet Take 4 mg by mouth Activ e acetaminophen (TYLENOL) 325 MG tablet Take 325 mg by mouth every 4 hours as needed for Fever or Pain Maximum allowable Acetaminophen amount = 4 Grams (4000 mg) / 24 hours. Active vitamin D3 (CHOLECALCIFEROL) 1000 UNITS tablet Take by mouth once daily Active Active Problems No known active problems Social History Tobacco Use Types Packs/Day Years Used Date Smoking Tobacco: Never Sex and Gender Information Value Date Recorded Sex Assigned at Not on file Gender Identity Not on file Sexual Orientation Not on file Last Filed Vital Signs Vital Sign Reading Time Taken Comments Blood Pressure 114/75 07/13/2016 2:08 PM CDT Pulse 87 07/13/2016 2:08 PM CDT Temperature - - Respiratory Rate 16 07/13/2016 2:08 PM CDT Oxygen Saturation 97% 07/13/2016 2:08 PM CDT Inhaled Oxygen Concentration - - Weight - - Height - - Body Mass Index - - Plan of Treatment Health Maintenance Due Date Last Done Comments COLOGUARD (AGES 45-75) - COL ON CA SCREENING 1950 COLON MONITORING 1949 COLONOSCOPY - COLON CA SCREENING 1949 CT COLONOGRAPHY - COLON CA SCREENING 1950 Colorectal Cancer Screening 1949 FIT - COLON CA SCREENING 1949 FLEX SIG - COLON CA SCREENING 1949 HEPATITIS C SCREENING 10/21/1967 DTAP/TDAP/TD VACCINES (1 - Tdap) 1968 PNEUMOCOCCAL VACCINE 50+ (1 of 1 - PCV) 1999 ZOSTER VACCINE (1 of 2) 1999 COVID-19 VACCINE ( - 2023-2 5 season) 2024 INFLUENZA VACCINE (#1) 2024 Respiratory Syncytial Virus (RSV) Vaccine Pt: or over 60 yrs (1 - 1-dose 75+ series) 2024 DEPRESSION SCREENING 11/07/2024 MEDICARE AWV CALENDAR YEAR 2024 HEPATITIS B VACCINE Aged Out No longe r eligible based on patient's age to complete this topic HIB VACCINE Aged Out No longer eligi ble based on patient's age to complete this topic HPV VACCINE Aged Out No longer eligi ble based on patient's age to complete this topic MENINGOCOCCAL (Group B) VACCINE Aged Out No longer eligible based on patient's age to complete this topic MENINGOCOCCAL VACCINE Aged Out No norma emely eligible based on patient's age to complete this topic Care Teams Or Assistant Relationship Specialty Start Date End Date Boo Sheth MD [address] [place] [address] PCP - General 04/30/21
--- OUTSIDE RECORDS SUMMARY | 2024-12-17 09:56 | XMS_ITS | Referral Summary ---
Author Organization [facility] Address [address] [place] [place] [address] Care Team Providers Care Campus Executive Director Name Role Phone Boo Sheth MD Primary Care Provider [phone] Source Comments [facility],non-owned Affiliates and Associated Physician Practices is amultiple site organization consisting of ambulatory clinics and hospital sitesin [place], [place], [place] and [place]. This disclosure is being madepursuant to the Care Everywhere program and may not contain all information available regarding this patient. Last updated 18.[facility] Allergies No known active allergies Medications * [...] Mass Index - - Plan of Treatment Not on file Care Teams Campus Executive Director Relationship Specialty Start Date End Date Boo Sheth MD [address] [place] [id number] PCP - General 04/30/21
--- OUTSIDE RECORDS SUMMARY | 2024-12-17 09:57 | XMS_ITS | Patient Health Summary ---
Author Organization [facility] Address [address] [place] [address] Care Team Providers Care Sewer Separation Designer Name Role Phone Boo Sheth MD Primary Care Provider [phone] Note from [facility],non-owned Affiliates and Associated Physician Practices is amultiple site organization consisting of ambulatory clinics and hospital sitesin [place], [place], [place] and [place]. This disclosure is being madepursuant to the Care Everywhere program and may not contain all information available regarding this patient. Last updated 18.[facility] Allergies No known active allergies Medications * Be aware that medications may not be up to date on this document. Alwaysverify current medications with the patient. * lovastatin (MEVACOR) 40 MG tablet Take 40 mg by mouth at bedtime. * folic acid (FOLVITE) 1 MG tablet Take 1 mg by mouth once daily. * warfarin (COUMADIN) 4 MG tablet Take 4 mg by mouth * acetaminophen (TYLENOL) 325 MG tablet Take 325 mg by mouth every 4 hours as needed for Fever or Pain Maximum allowable Acetaminophen amount = 4 Grams (4000 mg) / 24 hours. * vitamin D3 (CHOLECALCIFEROL) 1000 UNITS tablet Take by mouth once daily Active Problems No known active problems Social [...] - - Body Mass Index - - Procedures * PAIN MANAGEMENT PROCEDURE TIME(Performed 07/13/2016) Performed for Cervicalgia, Spondylosis of cervical region without myelopathy or radiculopathy * PAIN MANAGEMENT PROCEDURE TIME(Performed 06/29/2016) Performed for Cervicalgia, Other spondylosis, cervical region * PAIN MANAGEMENT PROCEDURE TIME(Performed 05/06/2015) Performed for Cervical spondylosis without myelopathy, Spinal stenosis in cervical region * PAIN MANAGEMENT PROCEDURE TIME(Performed 05/07/2014) Performed for Cervical spondylosis without myelopathy, Spinal Stenosis In Cervical Region * PAIN MANAGEMENT PROCEDURE TIME(Performed 04/29/2014) Performed for Cervical spondylosis without myelopathy, Spinal Stenosis In Cervical Region * PAIN MANAGEMENT PROCEDURE TIME(Performed 04/09/2014) Performed for Cervical spondylosis without myelopathy, Spinal Stenosis In Cervical Region * PAIN MANAGEMENT PROCEDURE TIME(Performed 06/26/2013) Performed for Cervicalgia, Tension headache Results * PAIN MANAGEMENT PROCEDURE TIME (07/13/2016 2:42 PM CDT) Only the most recent of7 resultswithin the time period is included. Anatomical Region Laterality Modality X-Ray Angiograph y Narrative 07/13/2016 2:45 PM CDT West Fierro MD 07/13/2016 2:45 PM Epidural Cervical C6-C7 with no Epidurogram Patient Name: Mark Chatman Provider: West Fierro MD Date of : 1950 Date: 07/13/2016 PCP: Boo Sheth MD Allergies: Allergies as of 07/13/2016 (No Known Allergies) Medical History: No past medical history on file. Current Medications: Current Outpatient Prescriptions Medication vitamin D3 (CHOLECALCIFEROL) 1000 UNITS tablet warfarin (COUMADIN) 4 MG tablet acetaminophen (TYLENOL) 325 MG tablet lovastatin (MEVACOR) 40 MG tablet folic acid (FOLVITE) 1 MG tablet No current facility-administered medications for this encounter. Patient presents today for an injection. Procedure: Epidural Cervical C6-C7 Diagnosis/Indication:Cervical epidural steroid injection M47.812 Indication: Intractable neck and upper extremity pain. Other conservative therapies and/or treatments provided inadequate pain relief. Consent: After the patient was informed of the risks and benefits of the procedure and all questions were answered, consent was signed. Risks, benefits, and alternative treatments were discussed including risk of infection, bleeding, nerve damage, worsening pain, no pain relief, transient increase in blood pressure, blood sugar, fluid retention, headache, possibility of shingles, or any other viral outbreak secondary to immunosuppressant effects of steroid use. Prep: Patient identified, proper procedure identified, site identified, and marked by Dr. Fierro. Patient is not on Coumadin, Plavix or other blood thinners. Responsible fast food delivery driver is not needed due to the patient not having sedation. The patient was placed in a prone position and was prepped with Chloraprep. Procedure: Lidocaine 1% was injected with a 25 gauge needle at C6-C7 verifying placement with the fluoroscopy. An 18 gauge Touhy needle was placed into the epidural space using loss of resistance technique with preservative free (PF) normal saline. No cerebral spinal fluid or blood was aspirated prior to the injection. 80mg of DepoMedrol was injected into the epidural space. Complications: None Estimated Blood Loss: None The patient tolerated the procedure well and there were no complications. The patient was taken to the recovery area. The patient remained in stable condition with no apparent complications. Vital signs stable. Injection site clean, dry, and intact. Post procedure instructions were given to the patient and a follow up appointment was confirmed. The patient was discharged with information on how to reach the clinic at anytime for questions or concerns. Patient ambulatory, denies complaints, discharged to home. Pt survey given. Procedure codes: Epi Cer/Thor (S), Fluoro Follow Up: 1 week West Fierro MD West Fierro MD DIAGNOSTIC IMAGING O RDERABLES Care Teams Sewer Separation Designer Relationship Specialty Start Date End Date Boo Sheth MD [address] [place] [address] PCP - General 04/30/21
--- OUTSIDE RECORDS SUMMARY | 2024-12-17 09:57 | XMS_ITS | Clinical Summary ---
Author Organization [facility] Address [address] [place] [address] Care Team Providers Care Assembly Line Inspector Name Role Phone Boo Sheth MD Primary Care Provider [phone] Zia Watts MD Unavailable [phone] Allergies No known active allergies Medications lovastatin (MEVACOR) 40 mg tablet Take 40 mg by mouth early childhood specialist before breakfast 9 Active tamsulosin (FLOMAX) 0.4 mg extended release capsule Take 0.4 mg by mouth early childhood specialist before breakfast 9 Active cholecalciferol (VITAMIN D-3) 1000 unit tablet Take 2,000 Units by mouth early childhood specialist before breakfast Active folic acid (FOLVITE) 1 mg tablet Take 1 mg by mouth early childhood specialist before breakfast Active JANTOVEN 4 mg tablet Take 4 mg by mouth early childhood specialist before breakfast 9 Active acetaminophen (TYLENOL) 500 mg tablet Take 500 mg by mouth every 6 (six) hours as needed for pain Active mirabegron ER (MYRBETRIQ) 25 mg tablet extended release 24 hr 1 Active traMADoL (ULTRAM) 50 mg tabletIndicatio ns:Pain of left hip joint Take 1 tablet (50 mg total) by mouth every 8 (eight) hours as needed for pain 60 tablet 2 Active Additional Information Patient not taking.Reported on 12/22/2021 Myrbetriq 50 mg tablet extended release 24 hr 2 Active Active Problems Problem Noted Date Diagnosed Date Polyp of colon 10/03/2019 Overview (10/03/2019): Added automatically from request for surgery [id number] 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 0 02/13/2016 Deep vein thrombosis (DVT) (CMS/HCC) 02/13/2016 Arthralgia of hip 06/20/2015 Shortness of breath 10/20/2012 Hyperlipidemia 10/20/2012 Immunizations Name Administration Dates Next Due Pfizer SARS-CoV-2 Monovalent Vaccination (12+ Yrs) PURPLE 12/30/2020,12/09/2020 Surgical History Surgery Date Site/Laterality Comments COLONOSCOPY JOINT REPLACEMENT 11/07/2014 - 11/06/2015 Left HIP INGUINAL HERNIA REPAIR Hernia Repair Inguinal Unilateral - (Added by TW Conv) HERNIA REPAIR 11/07/2016 - 11/06/2017 umbilical COLON SURGERY 10/26/2019 ROBOTIC RIGHT COLECTOMY Medical History Medical History Date Comments Personal history of other en docrine, nutritional and metabolic disease History of hyperlipi demia - (Added by TW Conv) Sleep apnea Lipid disorder Colon polyp Factor V Leiden (HCC) Family History Medical History Relation Name Comments Heart attack Brother Cancer Father Family history of malignant neoplasm - (Added by TW Conv) Heart disease Father Family history of cardiac disorder - (Added by TW Conv) Lung disease Father Family history of lung disease - (Added by TW Conv) Cancer Mother Family history of malignant neoplasm - (Added by TW Conv) Lung disease Mother Family history of lung disease - (Added by TW Conv) Diabetes Other FHx: diabetes m ellitus - Mother, Father, Brother (Added by TW Conv) Relation Name Status Comments Brother Father Mother Other Social History Tobacco Use Types Packs/Day Years Used Date Smoking Tobacco: Never Smokeless Tobacco: Never Tobacco Cessation:Counseling Given: No Alcohol Use Standard Drinks/Week Comments Yes 21 (1 standard drink = 0.6 oz pu re alcohol) Sex and Gender Information Value Date Recorded Sex Assigned at Not on file Legal Sex Male 2:43 AM ELECTRO WINNING OPERATOR Gender Identity Male 06/12/2021 9:09 AM CDT Sexual Orientation Not on file Obstetrics History Last Filed Vital Signs Vital Sign Reading Time Taken Comments Blood Pressure 158/88 11/21/2019 8:55 AM ELECTRO WINNING OPERATOR Pulse 88 11/21/2019 8:55 AM ELECTRO WINNING OPERATOR Temperature 36.6 C (97.8 F) 11/21/2019 8:55 AM ELECTRO WINNING OPERATOR Respiratory Rate 18 10/28/2019 9:24 AM ELECTRO WINNING OPERATOR Oxygen Saturation 99% 11/21/2019 8:55 AM ELECTRO WINNING OPERATOR Inhaled Oxygen Concentration - - Weight 91.9 kg (202 lb 8 oz) 11/21/2019 8:55 AM ELECTRO WINNING OPERATOR Height 177.8 cm (5' 10 ) 11/21/2019 8:55 AM ELECTRO WINNING OPERATOR Body Mass Index 29.06 11/21/2019 8:55 AM ELECTRO WINNING OPERATOR Plan of Treatment Health Maintenance Due Date Last Done Comments Colon Cancer Screening-Colonoscopy 1950 Depression Screening 1949 Fall Risk Assessment 1950 Hepatitis C Screening 1949 Hepatitis B Screening 1967 Abdominal Aortic Aneurysm (A AA) Screen 2014 Well Visit 65+ 2014 Zoster Vaccine (3 of 3) 09/26/2019 08/01/2019, 06/21 Covid-19 Vaccine (3 - 2023-2 5 season) 2024 12/30/2020, 12/09/2020 Influenza Vaccine (#1) 2024 0, 07/27/2019, 09/18/2018, Additional history exists DTaP/Tdap/Td Vaccine (3 - Td or Tdap) 12/29/2027 12/29/2017, 10/24/2008 Pneumococcal vaccine 65+ Completed 018, 06/04/2016, 10/24/2008 [facility] Advance Directives For more information, please contact: [phone] Documents on File Type Date Recorded Patient Memorial Marker Designer Expl anation ADVANCE DIRECTIVE 10/23/2019 4:15 PM Ulysses r of Pickle Cutter-Medical * Full Code (Latest Code Status on File) Date Activated Date Inactivated Comments 10/26/2019 2:36 PM 10/28/2019 8:13 PM Care Teams Assembly Line Inspector Relationship Specialty Start Date End Date Boo Sheth MD [address] [place] [address] PCP - General 02/08/17 Zia Watts MD [address] [place] [address] Referring Physician Gastroenterology 09/24/19
--- OUTSIDE RECORDS SUMMARY | 2024-12-17 09:57 | XMS_ITS | Clinical Summary ---
Author Organization [facility] Address [address] [place] [address] Care Team Providers Care Senior Buyer Name Role Phone Unavailable Primary Care Provider Unavailabl e Social History Tobacco Use Types Packs/Day Years Used Date Smoking Tobacco: Never Assessed Sex and Gender Information Value Date Recorded Sex Assigned at Not on file Legal Sex Male 9:59 PM CDT Gender Identity Not on file Sexual Orientation Not on file Plan of Treatment Health Maintenance Due Date Last Done Comments Colorectal Cancer Screening Colonoscopy (10 Years) 1949 Hepatitis C 1967 DTaP, Tdap and Td Vaccines ( 1 - Tdap) 1968 Zoster Vaccines (1 of 2) 1999 Pneumococcal Vaccine: 65+ Ye ars (1 of 1 - PCV) 2014 COVID-19 Vaccine ( - 2023-2 5 season) 2024 Influenza Adult (#1) 2024 RSV Immunization or 60+ Years (1 - 1-dose 75+ series) 2024 Meningococcal B Vaccine Aged Out No l onger eligible based on patient's age to complete this topic Meningococcal Vaccine Aged Out No norma emely eligible based on patient's age to complete this topic RSV Immunizations Under 20 Months Aged Out No longer eligible based on patient's age to complete this topic
--- OUTSIDE RECORDS SUMMARY | 2024-12-17 09:57 | XMS_ITS | Referral Summary ---
Author Organization [facility] Address [address] [place] [address] Care Team Providers Care Magnetic Doctor Name Role Phone Boo Sheth MD Primary Care Provider [phone] Zia Watts MD Unavailable Allergies No known active allergies Medications lovastatin (MEVACOR) 40 mg tablet Take 40 mg by mouth room service runner before breakfast 9 Active tamsulosin (FLOMAX) 0.4 mg extended release capsule Take 0.4 mg by mouth room service runner before breakfast 9 Active cholecalciferol (VITAMIN D-3) 1000 unit tablet Take 2,000 Units by mouth room service runner before breakfast Active folic acid (FOLVITE) 1 mg tablet Take 1 mg by mouth room service runner before breakfast Active JANTOVEN 4 mg tablet Take 4 mg by mouth room service runner before breakfast 9 Active acetaminophen (TYLENOL) 500 [...] (10/03/2019): Added automatically from request for surgery [id number] 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 0 02/13/2016 Deep vein thrombosis (DVT) (CMS/HCC) 02/13/2016 Arthralgia of hip 06/20/2015 Shortness of breath 10/20/2012 Hyperlipidemia 10/20/2012 Immunizations Name Administration Dates Next Due Pfizer SARS-CoV-2 Monovalent Vaccination (12+ Yrs) PURPLE 12/30/2020,12/09/2020 Social History Tobacco Use Types Packs/Day Years Used Date Smoking Tobacco: Never Smokeless Tobacco: Never Tobacco Cessation:Counseling Given: No Alcohol Use Standard Drinks/Week Comments Yes 21 (1 standard drink = 0.6 oz pu re alcohol) Sex and Gender Information Value Date Recorded Sex Assigned at Not on file Legal Sex Male 2:43 AM ADDICTION PSYCHIATRIST Gender Identity Male 06/12/2021 9:09 AM CDT Sexual Orientation Not on file Last Filed Vital Signs Vital Sign Reading Time Taken Comments Blood Pressure 158/88 11/21/2019 8:55 AM ADDICTION PSYCHIATRIST Pulse 88 11/21/2019 8:55 AM ADDICTION PSYCHIATRIST Temperature 36.6 C (97.8 F) 11/21/2019 8:55 AM ADDICTION PSYCHIATRIST Respiratory Rate 18 10/28/2019 9:24 AM ADDICTION PSYCHIATRIST Oxygen Saturation 99% 11/21/2019 8:55 AM ADDICTION PSYCHIATRIST Inhaled Oxygen Concentration - - Weight 91.9 kg (202 lb 8 oz) 11/21/2019 8:55 AM ADDICTION PSYCHIATRIST Height 177.8 cm (5' 10 ) 11/21/2019 8:55 AM ADDICTION PSYCHIATRIST Body Mass Index 29.06 11/21/2019 8:55 AM ADDICTION PSYCHIATRIST Plan of Treatment Not on file Insurance [facility] AET MEDICARE Advance Directives For more information, please contact: [phone] Documents on File Type Date Recorded Patient Roll Forger Expl anation ADVANCE DIRECTIVE 10/23/2019 4:15 PM Ulysses r of Patient Attendant-Medical * Full Code (Latest Code Status on File) Date Activated Date Inactivated Comments 10/26/2019 2:36 PM 10/28/2019 8:13 PM Care Teams Magnetic Doctor Relationship Specialty Start Date End Date Boo Sheth MD [address] [place] [address] PCP - General 02/08/17 Zia Watts MD [address] [place] [address] Referring Physician Gastroenterology 09/24/19
[2024-12-17 10:09] LABS: Basophils Absolute Auto 0.01 K/mm3 (0.00-0.10); Basophils Percent Auto 0.2 % (0.0-1.0); Eosinophils Absolute Auto 0.16 K/mm3 (0.02-0.50); Eosinophils Percent Auto 3.1 % (1.0-6.0); Hematocrit 46.7 % (37.0-46.0); Hemoglobin 14.7 g/dL (12.4-15.3); Immature Granulocyte Absolute 0.01 K/mm3 (0.00-0.00); Immature Granulocyte Percent A 0.2 % (0.0-0.0); Lymphocytes Absolute Auto 1.29 K/mm3 (1.10-4.50); Lymphocytes Percent Auto 24.7 % (18.0-42.0); Mean Corpuscular HGB Conc 31.5 g/dL (32-36); Mean Corpuscular Hemoglobin 29.9 pg (27.0-31.0); Mean Corpuscular Volume 95.1 fL (78.0-102.0); Mean Platelet Volume 10.6 fl (8.7-11.0); Monocytes Absolute Auto 0.52 K/mm3 (0.10-0.90); Monocytes Percent Auto 9.9 % (2.0-11.0); Neutrophils Absolute Auto 3.24 K/mm3 (1.70-7.20); Neutrophils Percent Auto 61.9 % (50.0-70.0); Platelet Count Result 199 K/mm3 (150-420); Red Blood Count 4.91 M/mm3 (4.70-6.10); Red Cell Distribution Width 13.1 % (11.6-14.4); White Blood Count 5.2 K/mm3 (4.8-10.8)
[2024-12-17 10:10] LABS: Add Urine Microscopic? YES; Appearance Urine Clear (Clear); Bilirubin Urine Negative (Negative); Blood Urine Negative (Negative); Color Urine Light Yellow (Yellow); Glucose Urine UA Negative (Negative); Ketones Urine Negative (Negative); Leukocyte Esterase Ur Trace (Negative); Nitrate Urine Positive (Negative); Protein Urine Negative (Negative); Specific Grav Ur 1.025 (1.010-1.020); Urobilinogen Urine 0.2 mg/dL (0.2-1.0)
[2024-12-17 10:24] LABS: RBC Urine None seen /hpf (0-2); Squamous Epithelial Cell Urine Few /hpf (Few); WBC Urine None seen /hpf (0-3)
[2024-12-17 10:25] LABS: Bacteria Urine 1+ /hpf
[2024-12-17 11:10] LABS: MALB Creatinine Ratio 11.1 mg/g (0-30); Microalbumin Urine Random < 13.0 mg/L
[2024-12-17 11:41] LABS: Alanine Aminotransferase 28 U/L (16-63); Albumin Level 3.7 g/dL (3.4-5.0); Alkaline Phosphatase 61 U/L (46-116); Anion Gap 5 mmol/L (4-12); Aspartate Amino Transferase 19 U/L (15-37); Bilirubin,Total 0.7 mg/dL (0.00-1.00); Blood Urea Nitrogen 18 mg/dL (7-18); Calcium 8.8 mg/dL (8.5-10.1); Carbon Dioxide 30 mmol/L (21-32); Chloride 108 mmol/L (98-108); Cholesterol 178 mg/dL (0-200); Creatine Kinase 124 U/L (39-308); Estimated Glomerular Filt Rate > 60; Glucose 102 mg/dL (70-99); HDL Direct 63 mg/dL (40-60); LDL Cholesterol Calculated 103 mg/dL (<130); Osmolality Calculated 297 mOsm/kg (285-295); Potassium 5.1 mmol/L (3.5-5.1); Prostate Specific Antigen 5.2 ng/mL (< OR = 4.0); Sodium 143 mmol/L (136-145); Total Protein 6.5 g/dL (6.4-8.2); Triglycerides 59 mg/dL (0-150)
[2024-12-17 11:44] LABS: Hemoglobin A1C 5.8 % (<5.7)
== END 2024-12-17 09:27 | disposition home or self-care (01) ==
PROVIDERS: PCP Internal Medicine; Visit Provider Internal Medicine
DX: I10 Essential (primary) hypertension (principal); E78.2 Mixed hyperlipidemia; R73.01 Impaired fasting glucose; R97.20 Elevated prostate specific antigen [PSA]; N39.0 Urinary tract infection, site not specified
CPT/HCPCS: 36415; 80053; 80061; 81001; 82043; 82550; 83036; 84153; 85025; 87086; 87088

== ENCOUNTER 2024-12-20 11:37 | Outpatient (CLI) | payer MEDICARE, SELFPAY ==
--- OUTSIDE RECORDS SUMMARY | 2024-12-20 11:43 | XMS_ITS | Patient Health Summary ---
Author Organization [facility] Address [address] [place] [address] Care Team Providers Care Media Sales Executive Name Role Phone Boo Sheth MD Primary Care Provider [phone] [facility],non-owned Affiliates and Associated Physician Practices is amultiple site organization consisting of ambulatory clinics and hospital sitesin [place], [place], [place] and [place]. This disclosure is being madepursuant to the Care Everywhere program and may not contain all information available regarding this patient. Last updated 18.[facility] Allergies No known active allergies Medications * [...] Coumadin, Plavix or other blood thinners. Responsible driver examiner is not needed due to the patient [...] MD DIAGNOSTIC IMAGING O RDERABLES Care Teams Media Sales Executive Relationship Specialty Start Date End Date Boo Sheth MD [address] [place] [address] PCP - General 04/30/21
--- OUTSIDE RECORDS SUMMARY | 2024-12-20 11:43 | XMS_ITS | Clinical Summary ---
Author Organization [facility] Address [facility] [place] [address] Care Team Providers Care Teacher Tutor Name Role Phone Unavailable Primary Care Provider [...]
--- OUTSIDE RECORDS SUMMARY | 2024-12-20 11:43 | XMS_ITS | Referral Summary ---
Author Organization [facility] Address [address] [place] [address] Care Team Providers Care Chief Operator Reformer Name Role Phone Boo Sheth MD Primary Care Provider [phone] Zia Watts MD Unavailable [phone] Allergies No known active allergies Medications lovastatin (MEVACOR) 40 mg tablet Take 40 mg by mouth early childhood associate teacher before breakfast 9 Active tamsulosin (FLOMAX) 0.4 mg extended release capsule Take 0.4 mg by mouth early childhood associate teacher before breakfast 9 Active cholecalciferol (VITAMIN D-3) 1000 unit tablet Take 2,000 Units by mouth early childhood associate teacher before breakfast Active folic acid (FOLVITE) 1 mg tablet Take 1 mg by mouth early childhood associate teacher before breakfast Active JANTOVEN 4 mg tablet Take 4 mg by mouth early childhood associate teacher before breakfast 9 Active acetaminophen (TYLENOL) 500 [...] (10/03/2019): Added automatically from request for surgery [id number] 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 0 02/13/2016 [...] on file Legal Sex Male 2:43 AM GENERATOR TECHNICIAN Gender Identity Male 06/12/2021 9:09 AM CDT Sexual Orientation Not on file Last Filed Vital Signs Vital Sign Reading Time Taken Comments Blood Pressure 158/88 11/21/2019 8:55 AM GENERATOR TECHNICIAN Pulse 88 11/21/2019 8:55 AM GENERATOR TECHNICIAN Temperature 36.6 C (97.8 F) 11/21/2019 8:55 AM GENERATOR TECHNICIAN Respiratory Rate 18 10/28/2019 9:24 AM GENERATOR TECHNICIAN Oxygen Saturation 99% 11/21/2019 8:55 AM GENERATOR TECHNICIAN Inhaled Oxygen Concentration - - Weight 91.9 kg (202 lb 8 oz) 11/21/2019 8:55 AM GENERATOR TECHNICIAN Height 177.8 cm (5' 10 ) 11/21/2019 8:55 AM GENERATOR TECHNICIAN Body Mass Index 29.06 11/21/2019 8:55 AM GENERATOR TECHNICIAN Plan of Treatment Not on file Insurance [facility] AET MEDICARE Advance Directives For more information, please contact: [phone] Documents on File Type Date Recorded Patient Receiving Barn Custodian Expl anation ADVANCE DIRECTIVE 10/23/2019 4:15 PM Ulysses r of Rn Production-Medical * Full Code (Latest Code Status on File) Date Activated Date Inactivated Comments 10/26/2019 2:36 PM 10/28/2019 8:13 PM Care Teams Chief Operator Reformer Relationship Specialty Start Date End Date Boo Sheth MD [address] [place] [address] PCP - General 02/08/17 Zia Watts MD [address] [place] [address] Referring Physician Gastroenterology 09/24/19
--- OUTSIDE RECORDS SUMMARY | 2024-12-20 11:43 | XMS_ITS | Referral Summary ---
Author Organization [facility] Address [address] [place] [address] Care Team Providers Care Bakery Sales Clerk Name Role Phone Boo Sheth MD Primary Care Provider [phone] Source Comments [facility],non-owned Affiliates and Associated Physician Practices is amultiple site organization consisting of ambulatory clinics and hospital sitesin [place], [place], [place] and [place]. This disclosure is being madepursuant to the Care Everywhere program and may not contain all information available regarding this patient. Last updated 18.[facility] Allergies No known active allergies Medications * [...] of Treatment Not on file Care Teams Bakery Sales Clerk Relationship Specialty Start Date End Date Boo Sheth MD [address] [place] [id number] PCP - General 04/30/21
--- OUTSIDE RECORDS SUMMARY | 2024-12-20 11:43 | XMS_ITS | Clinical Summary ---
Author Organization [facility] Address [address] [place] [address] Care Team Providers Care Java Sdet Name Role Phone Boo Sheth MD Primary Care Provider [phone] Zia Watts MD Unavailable [phone] Allergies No known active allergies Medications lovastatin (MEVACOR) 40 mg tablet Take 40 mg by mouth production intern before breakfast 9 Active tamsulosin (FLOMAX) 0.4 mg extended release capsule Take 0.4 mg by mouth production intern before breakfast 9 Active cholecalciferol (VITAMIN D-3) 1000 unit tablet Take 2,000 Units by mouth production intern before breakfast Active folic acid (FOLVITE) 1 mg tablet Take 1 mg by mouth production intern before breakfast Active JANTOVEN 4 mg tablet Take 4 mg by mouth production intern before breakfast 9 Active acetaminophen (TYLENOL) 500 [...] (10/03/2019): Added automatically from request for surgery [id number] 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 0 02/13/2016 [...] on file Legal Sex Male 2:43 AM DIVISION SUPERVISOR Gender Identity Male 06/12/2021 9:09 AM CDT Sexual Orientation Not on file Obstetrics History Last Filed Vital Signs Vital Sign Reading Time Taken Comments Blood Pressure 158/88 11/21/2019 8:55 AM DIVISION SUPERVISOR Pulse 88 11/21/2019 8:55 AM DIVISION SUPERVISOR Temperature 36.6 C (97.8 F) 11/21/2019 8:55 AM DIVISION SUPERVISOR Respiratory Rate 18 10/28/2019 9:24 AM DIVISION SUPERVISOR Oxygen Saturation 99% 11/21/2019 8:55 AM DIVISION SUPERVISOR Inhaled Oxygen Concentration - - Weight 91.9 kg (202 lb 8 oz) 11/21/2019 8:55 AM DIVISION SUPERVISOR Height 177.8 cm (5' 10 ) 11/21/2019 8:55 AM DIVISION SUPERVISOR Body Mass Index 29.06 11/21/2019 8:55 AM DIVISION SUPERVISOR Plan of Treatment Health Maintenance Due Date [...] vaccine 65+ Completed 018, 06/04/2016, 10/24/2008 Insurance [facility] AETNA MEDICARE Advance Directives For more information, please contact: [phone] Documents on File Type Date Recorded Patient Powder Mill Operator Expl anation ADVANCE DIRECTIVE 10/23/2019 4:15 PM Ulysses r of Coat Tailor-Medical * Full Code (Latest Code Status on File) Date Activated Date Inactivated Comments 10/26/2019 2:36 PM 10/28/2019 8:13 PM Care Teams Java Sdet Relationship Specialty Start Date End Date Boo Sheth MD [address] [place] [address] PCP - General 02/08/17 Zia Watts MD [address] [place] [address] Referring Physician Gastroenterology 09/24/19
--- OUTSIDE RECORDS SUMMARY | 2024-12-20 11:43 | XMS_ITS | Clinical Summary ---
Author Organization [facility] Address [address] [place] [address] Care Team Providers Care Forest Nursery Supervisor Name Role Phone Boo Sheth MD Primary Care Provider [phone] Source Comments [facility],non-owned Affiliates and Associated Physician Practices is amultiple site organization consisting of ambulatory clinics and hospital sitesin [place], [place], [place] and [place]. This disclosure is being madepursuant to the Care Everywhere program and may not contain all information available regarding this patient. Last updated 18.[facility] Allergies No known active allergies Medications * [...] age to complete this topic Care Teams Forest Nursery Supervisor Relationship Specialty Start Date End Date Boo Sheth MD [address] [place] [address] PCP - General 04/30/21
[2024-12-20 12:00] LABS: Add Urine Microscopic? YES; Appearance Urine Clear (Clear); Bilirubin Urine Negative (Negative); Blood Urine Negative (Negative); Color Urine Light Yellow (Yellow); Glucose Urine UA Negative (Negative); Ketones Urine Negative (Negative); Leukocyte Esterase Ur Trace (Negative); Nitrate Urine Positive (Negative); Protein Urine Negative (Negative); RBC Urine 0-2 /hpf (0-2); Urobilinogen Urine 0.2 mg/dL (0.2-1.0)
[2024-12-20 12:01] LABS: Bacteria Urine Trace /hpf; Squamous Epithelial Cell Urine Rare /hpf (Few); WBC Urine 0-3 /hpf (0-3)
== END 2024-12-20 11:38 | disposition home or self-care (01) ==
LOC: CHSLAB 11:40
PROVIDERS: PCP Internal Medicine; Visit Provider Internal Medicine
DX: R82.81 Pyuria (principal)
CPT/HCPCS: 81001; 87086

== ENCOUNTER 2025-02-15 13:08 | Outpatient (CLI) | payer MEDICARE, SELFPAY ==
--- OUTSIDE RECORDS SUMMARY | 2025-02-15 13:11 | XMS_ITS | Clinical Summary ---
Author Organization [facility] Address [address] [place] [address] Care Team Providers Care Helicopter Mechanic Name Role Phone Boo Sheth MD Primary Care Provider [phone] Zia Watts MD Unavailable [phone] Allergies No known active allergies Medications lovastatin (MEVACOR) 40 mg tablet Take 40 mg by mouth diamond sawer before breakfast 9 Active tamsulosin (FLOMAX) 0.4 mg extended release capsule Take 0.4 mg by mouth diamond sawer before breakfast 9 Active cholecalciferol (VITAMIN D-3) 1000 unit tablet Take 2,000 Units by mouth diamond sawer before breakfast Active folic acid (FOLVITE) 1 mg tablet Take 1 mg by mouth diamond sawer before breakfast Active JANTOVEN 4 mg tablet Take 4 mg by mouth diamond sawer before breakfast 9 Active acetaminophen (TYLENOL) 500 [...] (10/03/2019): Added automatically from request for surgery [id number] 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 0 02/13/2016 Deep vein thrombosis (DVT) 02/13/2016 Arthralgia of hip 06/20/2015 Shortness of breath 10/20/2012 Hyperlipidemia 10/20/2012 Immunizations Immunization Administration Dates Next Due Pfizer SARS-CoV-2 Monovalent [...] Lipid disorder Colon polyp Factor V Leiden Family History Medical History Relation Name Comments [...] on file Legal Sex Male 2:43 AM COLLECTION ADVISOR Gender Identity Male 06/12/2021 9:09 AM CDT Sexual Orientation Not on file Obstetrics History Last Filed Vital Signs Vital Sign Reading Time Taken Comments Blood Pressure 158/88 11/21/2019 8:55 AM COLLECTION ADVISOR Pulse 88 11/21/2019 8:55 AM COLLECTION ADVISOR Temperature 36.6 C (97.8 F) 11/21/2019 8:55 AM COLLECTION ADVISOR Respiratory Rate 18 10/28/2019 9:24 AM COLLECTION ADVISOR Oxygen Saturation 99% 11/21/2019 8:55 AM COLLECTION ADVISOR Inhaled Oxygen Concentration - - Weight 91.9 kg (202 lb 8 oz) 11/21/2019 8:55 AM COLLECTION ADVISOR Height 177.8 cm (5' 10 ) 11/21/2019 8:55 AM COLLECTION ADVISOR Body Mass Index 29.06 11/21/2019 8:55 AM COLLECTION ADVISOR Plan of Treatment Health Maintenance Due Date [...] vaccine 65+ Completed 018, 06/04/2016, 10/24/2008 Insurance [facility] AET MEDICARE Advance Directives For more information, please contact: [phone] Documents on File Type Date Recorded Patient Thermometer Tester Expl anation ADVANCE DIRECTIVE 10/23/2019 4:15 PM Ulysses r of Automotive Artist-Medical * Full Code (Latest Code Status on File) Date Activated Date Inactivated Comments 10/26/2019 2:36 PM 10/28/2019 8:13 PM Care Teams Helicopter Mechanic Relationship Specialty Start Date End Date Boo Sheth MD [address] [place] [address] PCP - General 02/08/17 Zia Watts MD [address] [place] [address] Referring Physician Gastroenterology 09/24/19
--- OUTSIDE RECORDS SUMMARY | 2025-02-15 13:11 | XMS_ITS | Clinical Summary ---
Author Organization [facility] Address [address] [place] [address] Care Team Providers Care Gold Leaf Gilder Name Role Phone Boo Sheth MD Primary Care Provider [phone] Source Comments [facility],non-owned Affiliates and Associated Physician Practices is amultiple site organization consisting of ambulatory clinics and hospital sitesin [place], [place], [place] and [place]. This disclosure is being madepursuant to the Care Everywhere program and may not contain all information available regarding this patient. Last updated 18.[facility] Allergies No known active allergies Medications * [...] VACCINE ( - 2023-2 5 season) 2024 Respiratory Syncytial Virus (RSV) Vaccine Pt: or over 60 yrs (1 - 1-dose 75+ series) 2024 DEPRESSION SCREENING 11/07/2024 MEDICARE AWV CALENDAR YEAR 2024 INFLUENZA VACCINE (Season Ended) 2025 HEPATITIS B VACCINE Aged Out No longe r eligible based on patient's age to complete this topic HIB VACCINE Aged Out No longer eligi ble based on patient's age to complete this topic HPV VACCINE Aged Out No longer eligi ble based on patient's age to complete this topic MENINGOCOCCAL (Group B) VACC INE SHARED DECISION-MAKING Aged Out No longer eligibl e based on patient's age to complete this topic MENINGOCOCCAL GROUPS A/C/Y/W VACCINE Aged Out No longer eligible b ased on patient's age to complete this topic Care Teams Gold Leaf Gilder Relationship Specialty Start Date End Date Boo Sheth MD [address] [place] [address] PCP - General 04/30/21
--- OUTSIDE RECORDS SUMMARY | 2025-02-15 13:11 | XMS_ITS | Referral Summary ---
Author Organization [facility] Address [address] [place] [address] Care Team Providers Care Saw Superintendent Name Role Phone Boo Sheth MD Primary Care Provider [phone] Zia Watts MD Unavailable [phone] Allergies No known active allergies Medications lovastatin (MEVACOR) 40 mg tablet Take 40 mg by mouth soil technologist before breakfast 9 Active tamsulosin (FLOMAX) 0.4 mg extended release capsule Take 0.4 mg by mouth soil technologist before breakfast 9 Active cholecalciferol (VITAMIN D-3) 1000 unit tablet Take 2,000 Units by mouth soil technologist before breakfast Active folic acid (FOLVITE) 1 mg tablet Take 1 mg by mouth soil technologist before breakfast Active JANTOVEN 4 mg tablet Take 4 mg by mouth soil technologist before breakfast 9 Active acetaminophen (TYLENOL) 500 [...] (10/03/2019): Added automatically from request for surgery [id number] 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 [...] on file Legal Sex Male 2:43 AM SHORE MAN Gender Identity Male 06/12/2021 9:09 AM CDT Sexual Orientation Not on file Last Filed Vital Signs Vital Sign Reading Time Taken Comments Blood Pressure 158/88 11/21/2019 8:55 AM SHORE MAN Pulse 88 11/21/2019 8:55 AM SHORE MAN Temperature 36.6 C (97.8 F) 11/21/2019 8:55 AM SHORE MAN Respiratory Rate 18 10/28/2019 9:24 AM SHORE MAN Oxygen Saturation 99% 11/21/2019 8:55 AM SHORE MAN Inhaled Oxygen Concentration - - Weight 91.9 kg (202 lb 8 oz) 11/21/2019 8:55 AM SHORE MAN Height 177.8 cm (5' 10 ) 11/21/2019 8:55 AM SHORE MAN Body Mass Index 29.06 11/21/2019 8:55 AM SHORE MAN Plan of Treatment Not on file Insurance [facility] AETNA MEDICARE Advance Directives For more information, please contact: [phone] Documents on File Type Date Recorded Patient Codifier Expl anation ADVANCE DIRECTIVE 10/23/2019 4:15 PM Ulysses r of Deputy County Counsel-Medical * Full Code (Latest Code Status on File) Date Activated Date Inactivated Comments 10/26/2019 2:36 PM 10/28/2019 8:13 PM Care Teams Saw Superintendent Relationship Specialty Start Date End Date Boo Sheth MD [address] [place] [address] PCP - General 02/08/17 Zia Watts MD [address] [place] [address] Referring Physician Gastroenterology 09/24/19
--- OUTSIDE RECORDS SUMMARY | 2025-02-15 13:11 | XMS_ITS | Clinical Summary ---
Author Organization [facility] Address [facility] [address] [place] [address] Care Team Providers Care Door Machine Operator Name Role Phone Unavailable Primary Care Provider [...] Vaccine ( - 2023-2 5 season) 2024 RSV Immunization or 60+ Years (1 [...]
[2025-02-15 13:20] LABS: Hematocrit 46.3 % (37.0-46.0); Hemoglobin 14.6 g/dL (12.4-15.3); Mean Corpuscular HGB Conc 31.5 g/dL (32-36); Mean Corpuscular Hemoglobin 30.2 pg (27.0-31.0); Mean Corpuscular Volume 95.7 fL (78.0-102.0); Mean Platelet Volume 9.7 fl (8.7-11.0); Platelet Count Result 151 K/mm3 (150-420); Red Blood Count 4.84 M/mm3 (4.70-6.10); Red Cell Distribution Width 14.3 % (11.6-14.4); White Blood Count 6.5 K/mm3 (4.8-10.8)
[2025-02-15 13:41] LABS: Alanine Aminotransferase 30 U/L (16-63); Albumin Level 3.6 g/dL (3.4-5.0); Alkaline Phosphatase 70 U/L (46-116); Anion Gap 5 mmol/L (4-12); Aspartate Amino Transferase 12 U/L (15-37); Bilirubin,Total 0.6 mg/dL (0.00-1.00); Blood Urea Nitrogen 20 mg/dL (7-18); Calcium 9.2 mg/dL (8.5-10.1); Carbon Dioxide 30 mmol/L (21-32); Chloride 106 mmol/L (98-108); Estimated Glomerular Filt Rate > 60; Glucose 101 mg/dL (70-99); Osmolality Calculated 294 mOsm/kg (285-295); Potassium 4.5 mmol/L (3.5-5.1); Sodium 141 mmol/L (136-145); Total Protein 7.1 g/dL (6.4-8.2)
[2025-02-15 14:02] VITALS: BP 144/76; PULSE 68; RESP 14; TEMP 36.4; O2SAT 98; BMI 28.7
== END 2025-02-15 13:09 | disposition home or self-care (01) ==
LOC: CHSLAB 13:10 → CHSTREATRM 13:35 → CHSLAB 14:10
PROVIDERS: PCP Internal Medicine; Visit Provider Internal Medicine
DX: I10 Essential (primary) hypertension (principal); D68.69 Other thrombophilia
CPT/HCPCS: 36415; 80053; 85027

== ENCOUNTER 2025-02-16 09:18 | Outpatient (RCR) | payer MEDICARE, SELFPAY ==
[2025-02-15] MEDS: PHYTONADIONE 5 MG TABLET 10 MG PO (14:22)
[2025-02-15 14:28] VITALS: BP 144/76; PULSE 76; RESP 14; TEMP 36.4; O2SAT 98; BMI 28.5
--- NOTE | 2025-02-15 14:30 | PC.NURSE ---
Patient here for PO Vitamin K r/t getting Coumadin doses mixed up and was taking too much. Education given. All concerns addressed. Oral medication given. SEE MAR/patient care notes. Tolerated well. Will return tomorrow for 1 more dose.
[2025-02-16 09:25] VITALS: BMI 28.5
[2025-02-16] MEDS: PHYTONADIONE 5 MG TABLET 10 MG PO (09:31)
--- NOTE | 2025-02-16 09:35 | PC.NURSE ---
here for oral med icatrion. denies need for dc instructions on med. but wants to know if it ok for op procedure in next few days. explained the need to get rid of both doctors on tuesday. his primary that ordered med and the one who is doing procedure for further instructions.
--- NOTE | 2025-02-16 09:44 | PC.NURSE ---
patient here for oral medication. taken without difficulty. denies the need for education on med. wants to know if it is okay for op procedure in a few days. explained that he will need to call both primary and the docotr for op procedure on tuesday to find out what their plan is on going forwards. vocalizes an understanding of calling on tuesday.
== END 2025-02-16 09:19 | disposition home or self-care (01) ==
LOC: CHSTREATRM 09:18
PROVIDERS: PCP Internal Medicine; Visit Provider Internal Medicine
DX: Z71.89 Other specified counseling (principal)
CPT/HCPCS: 99199; A9270

== ENCOUNTER 2025-02-20 10:47 | Outpatient (RCR) | payer MEDICARE, SELFPAY ==
[2024-12-01 12:15] LABS: INR 3.1; Prothrombin Time 30.5 Seconds (9.50-12.1)
[2025-01-21 13:40] LABS: INR 4.2; Prothrombin Time 40.5 Seconds (9.50-12.1)
[2025-02-15 10:24] LABS: INR 16.1
[2025-02-18 11:17] LABS: Prothrombin Time 11.2 Seconds (9.50-12.1)
[2025-02-20 11:39] LABS: INR 1.1; Prothrombin Time 11.6 Seconds (9.50-12.1)
== END 2025-03-01 23:59 | disposition home or self-care (01) ==
LOC: CHSLAB 10:47
PROVIDERS: PCP Internal Medicine; Visit Provider Internal Medicine
DX: Z79.01 Long term (current) use of anticoagulants (principal)
CPT/HCPCS: 36415; 85610

== ENCOUNTER 2025-03-12 09:21 | Outpatient (RCR) | payer MEDICARE, SELFPAY ==
[2025-03-12 09:52] LABS: INR 1.0; Prothrombin Time 10.8 Seconds (9.50-12.1)
== END 2025-06-10 23:59 | disposition home or self-care (01) ==
LOC: CHSLAB 09:21
PROVIDERS: PCP Internal Medicine; Visit Provider Internal Medicine
DX: Z51.81 Encounter for therapeutic drug level monitoring (principal); Z79.01 Long term (current) use of anticoagulants
CPT/HCPCS: 36415; 85610

== ENCOUNTER 2025-06-12 09:30 | Outpatient (CLI) | payer MEDICARE, SELFPAY ==
[2025-06-12 09:47] LABS: Hematocrit 44.1 % (37.0-46.0); Hemoglobin 14.1 g/dL (12.4-15.3); Mean Corpuscular HGB Conc 32.0 g/dL (32-36); Mean Corpuscular Hemoglobin 31.2 pg (27.0-31.0); Mean Corpuscular Volume 97.6 fL (78.0-102.0); Platelet Count Result 197 K/mm3 (150-420); Red Blood Count 4.52 M/mm3 (4.70-6.10); White Blood Count 5.3 K/mm3 (4.8-10.8)
[2025-06-12 09:48] LABS: Add Urine Microscopic? YES; Appearance Urine Clear (Clear); Glucose Urine UA Negative (Negative); Leukocyte Esterase Ur Trace LEU/UL (Negative); Nitrate Urine Positive (Negative); Specific Grav Ur 1.020 (1.010-1.020)
--- OUTSIDE RECORDS SUMMARY | 2025-06-12 09:58 | XMS_ITS | Clinical Summary ---
Author Organization [facility] Address [address] [place] [address] Care Team Providers Care Facilities Officer Name Role Phone Boo Sheth MD Primary Care Provider [phone] Source Comments [facility],non-owned Affiliates and Associated Physician Practices is amultiple site organization consisting of ambulatory clinics and hospital sitesin [place], [place], [place] and [place]. This disclosure is being madepursuant to the Care Everywhere program and may not contain all information available regarding this patient. Last updated 18.[facility] Allergies No known active allergies Medications * Be aware that medications may not be up to date on this document. Alwaysverify current medications with the patient. lovastatin (MEVACOR) 40 MG tablet Take 40 mg by mouth at bedtime. Active folic acid (FOLVITE) 1 MG tablet Take 1 mg by mouth once daily. Active warfarin (COUMADIN) 4 MG tablet Take 4 mg by mouth Active acetaminophen (TYLENOL) 325 MG tablet Take 325 mg by mouth every 4 hours as needed for Fever or Pain Maximum allowable Acetaminophen amount = 4 Grams (4000 mg) / 24 hours. Active vitamin D3 (CHOLECALCIFER OL) 1000 UNITS tablet Take by mouth once daily Active Active Problems No known active problems Social History Tobacco Use Types Packs/Day Years Used Date Smoking Tobacco: Never Sex and Gender Information Value Date Recorded Sex Assigned at Not on file Legal Sex Male 1:40 PM CDT Gender Identity Not on file [...] MEDICARE AWV CALENDAR YEAR 2024 INFLUENZA VACCINE (#1) 2025 HEPATITIS B VACCINE Aged Out No [...] on patient's age to complete this topic Insurance MEDICARE COMMERCIAL GENERIC AETNA MEDICARE ADV SELF PAY NO INSURANCE Member Subscriber Plan / Payer (Ef fective for All Dates) Name:Josemanuel Mark Monica Member ID:Not on file Relation to Subscriber:Not on file Name:JOSEMANUELMARK Anderson Subscriber ID:Not on file (Home) [address]: [address] [place] [address] [place] [address] Payer ID:Not on file Group ID:Not on file Type:Self Pay Address: [place], [place] AETNA Care Teams Facilities Officer Relationship Specialty Start Date End Date Boo Sheth MD [address] [place] [address] PCP - General 04/30/21
--- OUTSIDE RECORDS SUMMARY | 2025-06-12 09:58 | XMS_ITS | Encounter Summary ---
Author Organization [facility] Address [address] [place] [address] Care Team Providers Care Reading Tutor Name Role Phone Boo Sheth MD Primary Care Provider [phone] Encounter Details Date Type Department Care Team (Late st Contact Info) Description 02/21/2025 Lab Requisition [facility] - DermPath Lab [address] [place] [id number] Emani Ram MD [address] [place] [address] Social History Tobacco Use Types Packs/Day Years Used Date Smoking Tobacco: Never Sex and Gender Information Value Date Recorded Sex Assigned at Not on file Legal Sex Male 1:40 PM CDT Gender Identity Not on file Sexual Orientation Not on file documented as of this encounter Plan of Treatment Not on file documented as of this encounter Procedures Procedure Name Priority Date/Time Associated Diagnosis Comments DERMATOPATHOLOGY Routine 02/21/2025 11:0 8 AM CDT documented in this encounter Results * DERMATOPATHOLOGY (02/21/2025 11:08 AM CDT) Case Report Dermatopathology Report Case: [id number] Authorizing Provider: Emani Ram MD Collected: 02/21/2025 11:08 AM Ordering Location: [facility] - Received: 02/22/2025 10:16 AM DermPath Lab Pathologist: Mary Bourne MD Specimen: Skin, right lateral forehead 10:45 AM CDT DERMATOPATHOLOGY LABORATORY Final Diagnosis Specimen A. SKIN, right lateral forehead: ACTINIC KERATOSIS, ERODED (L57.0) 10:45 AM CDT DERMATOPATHOLOGY LABORATORY at 1045 CDT Clinical History Basal cell carcinoma. 10:45 AM CDT DERMATOPATHOLOGY LABORATORY Gross Description Specimen A: Received is one formalin filled container labeled with the patient's name and designated right lateral forehead. The specimen consists of a shave biopsy measuring 8x6x1 mm. Jar 0. 10:45 AM CDT DERMATOPATHOLOGY LABORATORY Microscopic Description Specimen A. SKIN, right lateral forehead: There is alternating orthokeratosis and parakeratosis. The epidermis is focally eroded. Along the undersurface of the epidermis, there are buds of atypical keratinocytes in a disorderly arrangement. 10:45 AM CDT DERMATOPATHOLOGY LABORATORY Disclaimer An external and internal positive and negative controls are appropriate for the histochemical, immunohistochemical and immunofluorescence stain(s) in this case (if any), except where stated explicitly. The performance characteristics of the stain(s) cited in this report were developed and its performance characteristic determined by the Dermatopathology Laboratory at [facility], directed by Dr. Jose Armando Tidwell. These tests need not be, and therefore are not, approved by the [place] Food and Drug Administration. The tests are used for clinical purposes. Billing Codes Specimen Charges Stain Charges 83911 1 10:45 AM CDT DERMATOPATHOLOGY LABORATORY Embedded Images 10:45 AM CDT DERMATOPATHOLOGY LABORATORY Pathology/Cytolo gy TISSUE SPECIMEN FROM SKIN / Unknown 02/21/2025 11:08 AM CDT 02/22/2025 10:16 AM CDT us Emani Ram MD LAB - PATHOLOGY/CYTOLOGY ORDERA BLES Final Result DERMATOPATHOLOGY LABORATORY [facility] - Department of Dermatology [address] [phone] documented in this encounter Visit Diagnoses Not on filedocumented in this encounter Care Teams Reading Tutor Relationship Specialty Start Date End Date Boo Sheth MD [address] [place] [address] PCP - General 04/30/21 documented as of this encounter
--- OUTSIDE RECORDS SUMMARY | 2025-06-12 09:58 | XMS_ITS | Clinical Summary ---
Author Organization [facility] Address [address] [place] [address] Care Team Providers Care Powder Worker Name Role Phone Boo Sheth MD Primary Care Provider [phone] Zia Watts MD Unavailable [phone] Allergies No known active allergies Medications lovastatin (MEVACOR) 40 mg tablet Take 40 mg by mouth claims examiner before breakfast 9 Active cholecalciferol (VITAMIN D-3) 1000 unit tablet Take 2,000 Units by mouth claims examiner before breakfast Active folic acid (FOLVITE) 1 mg tablet Take 1 mg by mouth claims examiner before breakfast Active acetaminophen (TYLENOL) 500 mg tablet Take 500 mg by mouth every 6 (six) hours as needed for pain Active Xarelto 20 mg tablet Take 1 tablet (20 mg total) by mouth daily with dinner 5 Active finasteride (PROSCAR) 5 mg tablet Take 1 tablet (5 mg total) by mouth daily 5 Active tamsulosin (FLOMAX) 0.4 mg extended release capsule Take 0.4 mg by mouth claims examiner before breakfast 9 06/05/20 25 Discontinu ed(Patient Reported) JANTOVEN 4 mg tablet Take 4 mg by mouth claims examiner before breakfast 9 06/05/20 25 Discontinu ed(Patient Reported) mirabegron ER (MYRBETRIQ) 25 mg tablet extended release 24 hr 1 06/05/20 25 Discontinu ed(Patient Reported) traMADoL (ULTRAM) 50 mg tabletIndicatio ns:Pain of left hip joint Take 1 tablet (50 mg total) by mouth every 8 (eight) hours as needed for pain 60 tablet 2 06/05/20 25 Discontinu ed(Patient Reported) Myrbetriq 50 mg tablet extended release 24 hr 2 06/05/20 25 Discontinu ed(Patient Reported) Active Problems Problem Noted Date Diagnosed Date Polyp of colon 10/03/2019 Overview (10/03/2019): Added automatically from request for surgery [id number] 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 penitentiary current use of anticoagulant therapy 0 02/13/2016 Deep vein thrombosis (DVT) 02/13/2016 Arthralgia of hip 06/20/2015 Shortness of breath 10/20/2012 Hyperlipidemia 10/20/2012 Encounters Date Type Department Care Team Description 06/05/2025 3:00 PM CDT Office Visit [facility] Endocrinology Metabolism and Lipid [address] [place] [address] [place] [id number] Zahra Queen DO Anhidrosis (Primary Dx); Hair loss; Other fatigue; History of prediabetes; Elevated glucose 04/22/2025 1:00 PM CDT Office Visit [facility] Dermatology [address] [place] [address] Jaquelin Toney MD PhD Anhidrosis (Primary Dx); Rosacea, unspecified from Last 3 Months Immunizations Immunization Administration Dates Next Due Pfizer [...] Never Smokeless Tobacco: Never Tobacco Cessation:Counseling Given: Not Answered Alcohol Use Standard Drinks/Week Comments Yes 21 (1 standard drink = 0.6 oz pu re alcohol) Sex and Gender Information Value Date Recorded Sex Assigned at Not on file Legal Sex Male 2:43 AM AGRICULTURAL RESEARCH ENGINEER Gender Identity Male 06/12/2021 9:09 AM CDT Sexual Orientation Not on file Obstetrics History Last Filed Vital Signs Vital Sign Reading Time Taken Comments Blood Pressure 166/97 06/05/2025 2:44 PM CDT Pulse 79 06/05/2025 2:44 PM CDT Temperature 36.8 C (98.2 F) 06/05/2025 2:44 PM CDT Respiratory Rate 18 10/28/2019 9:24 AM AGRICULTURAL RESEARCH ENGINEER Oxygen Saturation 99% 11/21/2019 8:55 AM AGRICULTURAL RESEARCH ENGINEER Inhaled Oxygen Concentration - - Weight 89.8 kg (198 lb) 06/05/2025 2:44 PM CDT Height 177.8 cm (5' 10) 06/05/2025 2:44 PM CDT Body Mass Index 28.41 06/05/2025 2:44 PM CDT Plan of Treatment Health Maintenance Due Date Last Done Comments Colon Cancer Screening-Colonoscopy 1950 Depression Screening 1950 Fall Risk Assessment 1950 Hepatitis C Screening 1949 Hepatitis B Screening 1967 Well Visit 65+ 2014 Zoster Vaccine (3 of 3) 09/26/2019 08/01/2019, 06/21 Covid-19 Vaccine (3 - 2023-2 5 season) 2024 12/30/2020, 12/09/2020 Influenza Vaccine (#1) 2025 0, 07/27/2019, 09/18/2018, Additional history exists DTaP/Tdap/Td Vaccine (3 - Td or Tdap) 12/29/2027 12/29/2017, 10/24/2008 Pneumococcal vaccine 65+ Completed 018, 06/04/2016, 10/24/2008 Insurance [facility] AETNA MEDICARE Advance Directives For more information, please contact: [phone] Documents on File Type Date Recorded Patient Scrapper Expl anation ADVANCE DIRECTIVE 10/23/2019 4:15 PM Ulysses r of Donor Services Technician-Medical * Full Code (Latest Code Status on File) Date Activated Date Inactivated Comments 10/26/2019 2:36 PM 10/28/2019 8:13 PM Care Teams Powder Worker Relationship Specialty Start Date End Date Boo Sheth MD [address] [place], [place] [id number] PCP - General 02/08/17 Zia Watts MD [address] [place] [address] Referring Physician Gastroenterology 09/24/19
[2025-06-12 10:02] LABS: INR 1.0; Prothrombin Time 11.4 Seconds (9.50-12.1)
[2025-06-12 10:13] LABS: Alanine Aminotransferase 20 U/L (6-50); Albumin Level 4.0 g/dL (3.5-5.1); Alkaline Phosphatase 52 U/L (38-126); Anion Gap 6 mmol/L (4-12); Aspartate Amino Transferase 24 U/L (17-59); Bilirubin,Total 1.1 mg/dL (0.2-1.3); Blood Urea Nitrogen 17 mg/dL (9-20); Calcium 9.8 mg/dL (8.4-10.2); Carbon Dioxide 26 mmol/L (22-30); Chloride 108 mmol/L (98-107); Cholesterol 157 mg/dL (0-200); Creatine Kinase 101 U/L (55-170); Estimated Glomerular Filt Rate > 60; Glucose 117 mg/dL (65-110); HDL Direct 60 mg/dL; Osmolality Calculated 292 mOsm/kg (285-295); Potassium 4.5 mmol/L (3.4-5.0); Sodium 140 mmol/L (137-145); Total Protein 6.2 g/dL (6.3-8.2); Triglycerides 68 mg/dL (<150)
[2025-06-12 10:16] LABS: Hemoglobin A1C 5.9 % (<5.7)
[2025-06-12 10:30] LABS: Free T4 Free Thyroxine 0.74 ng/dL (0.78-2.19)
[2025-06-12 10:43] LABS: Prostate Specific Antigen 2.7 ng/mL (< OR = 4.0); Thyroid Stimulating Hormone 1.130 uIU/mL (0.465-4.680)
== END 2025-06-12 09:31 | disposition home or self-care (01) ==
PROVIDERS: PCP Internal Medicine
DX: R73.01 Impaired fasting glucose (principal); E78.00 Pure hypercholesterolemia, unspecified; Z12.5 Encounter for screening for malignant neoplasm of prostate; N39.0 Urinary tract infection, site not specified; L74.4 Anhidrosis; Z87.898 Personal history of other specified conditions; R73.09 Other abnormal glucose; L65.9 Nonscarring hair loss, unspecified; R53.83 Other fatigue; D68.51 Activated protein C resistance
CPT/HCPCS: 36415; 80053; 80061; 81001; 82550; 83036; 84153; 84439; 84443; 85027; 85610; 87086; G0103